=== PATIENT | male | born 1980 | race Caucasian/White ===

== ENCOUNTER 2018-02-19 12:29 | Emergency (ER) | payer OTHER, SELFPAY ==
[2018-02-19 12:33] VITALS: BP 130/82; PULSE 60; RESP 15; O2SAT 96; BMI 22.8
--- NOTE | 2018-02-19 13:43 | ED_ITS ---
HPI - Recheck/Abnormal Lab/Rx <JANNET Bynum - Last Filed: 02/19/18 21:01> General Chief Complaint: Recheck/Abnormal Lab/Rx Stated Complaint: need inhaler for asthma Time Seen by Provider: 02/19/18 13:42 Source: patient Mode of arrival: ambulatory Limitations: no limitations History of Present Illness HPI narrative: 37-year-old male with history of asthma and is an everyday smoker here for refill of his albuterol inhaler. He states he recently moved to the area has not established primary care as of yet and has ran out of his albuterol inhaler. He denies any shortness of breath. No chest pain. He states that he ran out a few days ago. He is currently establishing primary care but state will not have an appointment until March. He denies any other current concerns or complaints at this timeframe. Related Data Previous Rx's Medication Instructions Recorded albuterol sulfate 2 puff INHALATION Q4-6H PRN #8 gram 02/19/18 Allergies Allergy/AdvReac Type Severity Reaction Status Date / Time No Known Drug Allergies Allergy Verified 02/19/18 12:32 Review of Systems <JANNET Bynum - Last Filed: 02/19/18 21:01> Review of Systems Here for medication refill Eyes Denies change in vision, Denies eye discharge, Denies irritation and Denies loss of vision ENT Ears, Nose, Mouth, and Throat: Denies change in voice, Denies neck pain and Denies sore throat Cardiovascular Denies chest pain, Denies irregular heart rhythm, Denies lightheadedness, Denies palpitations, Denies dyspnea, Denies dyspnea on exertion and Denies orthopnea Respiratory Denies cough, Denies dyspnea, Denies dyspnea on exertion and Denies wheezing Gastrointestinal Gastrointestinal: Denies abdominal pain, Denies change in bowel habits, Denies diarrhea, Denies nausea and Denies vomiting Genitourinary Denies hematuria, Denies flank pain, Denies urinary incontinence and Denies urinary urgency Musculoskeletal Denies neck pain Integumentary/Breasts Denies pruritus, Denies erythema, Denies rash and Denies wounds Neurologic Denies confusion and Denies loss of vision Psychiatric Denies anxiety, Denies confusion, Denies depression, Denies homicidal ideation and Denies suicidal ideation Endocrine Denies palpitations Allergic/Immunologic Denies wheezing Exam <JANNET Bynum - Last Filed: 02/19/18 21:01> Initial Vital Signs Initial Vital Signs: Vital Signs Pulse Rate 60 02/19/18 12:33 Respiratory Rate 15 02/19/18 12:33 Blood Pressure 130/82 02/19/18 12:33 Pulse Oximetry 96 02/19/18 12:33 Const General: cooperative and well developed Nutritional Appearance: well nourished Orientation: alert, awake, oriented x3 and not confused [facility] Mouth: oral mucosae normal and mucous membranes abnormal Eyes Conjunctivae: conjunctivae normal Sclera: sclerae normal Pupils: PERRL EOM: EOM intact bilaterally Resp Effort & Inspection: normal respiratory effort, able to speak in complete sentences, no respiratory distress and no use of accessory muscles Auscultation: no rales, no rhonchi and wheezes expiratory wheezes and right lower Cardio Rate: regular rate Rhythm: regular rhythm Heart Sounds: no click, no gallops, no murmurs and no rubs Pulses: normal peripheral pulses Skin General: no rashes or lesions noted, No jaundice and No petechiae Neuro General: alert, oriented x3, gait normal and no focal motor deficits Speech: speech normal <Lucille Torres DO - Last Filed: 02/20/18 19:23> Initial Vital Signs Initial Vital Signs: Vital Signs Pulse Rate 60 02/19/18 12:33 Respiratory Rate 15 02/19/18 12:33 Blood Pressure 130/82 02/19/18 12:33 Pulse Oximetry 96 02/19/18 12:33 Course <JANNET Bynum - Last Filed: 02/19/18 21:01> Orders Ordered: Discontinued Medications Albuterol (Proventil 0.5% Neb Solution) 10 mg 0.15 mg/kg (10 mg) INH NOW ONE Stop: 02/19/18 13:38 Last Admin: 02/19/18 13:55 Dose: Albuterol (Ventolin) 2.5 mg INH NOW ONE Stop: 02/19/18 13:55 Last Admin: 02/19/18 13:58 Dose: 2.5 mg Albuterol (Ventolin) 2.5 mg INH NOW ONE Stop: 02/19/18 13:57 Last Admin: 02/19/18 13:57 Dose: Vital Signs - 8 hr 02/19/18 13:58 02/19/18 14:12 Pulse Rate 61 56 L Respiratory Rate 18 Blood Pressure 129/81 Pulse Oximetry 98 99 <Lucille Torres DO - Last Filed: 02/20/18 19:23> Orders Ordered: Discontinued Medications Albuterol (Proventil 0.5% Neb Solution) 10 mg 0.15 mg/kg (10 mg) INH NOW ONE Stop: 02/19/18 13:38 Last Admin: 02/19/18 13:55 Dose: Albuterol (Ventolin) 2.5 mg INH NOW ONE Stop: 02/19/18 13:55 Last Admin: 02/19/18 13:58 Dose: 2.5 mg Albuterol (Ventolin) 2.5 mg INH NOW ONE Stop: 02/19/18 13:57 Last Admin: 02/19/18 13:57 Dose: Vital Signs - 8 hr 02/19/18 13:58 02/19/18 14:12 Pulse Rate 61 56 L Respiratory Rate 18 Blood Pressure 129/81 Pulse Oximetry 98 99 MDM - Recheck/Abnormal Lab/Rx <JANNET Bynum - Last Filed: 02/19/18 21:01> [facility] Narrative Medical decision making narrative: Patient was slight expiratory wheezes to the right lower field. He was given albuterol nebulizer treatment in the emergency room which helped him feel better. He is prescribed albuterol inhaler with a couple of refills to get him by until he follows up with his primary care provider. For any worsening symptoms return to the emergency room. Discharge Plan Departure Patient Disposition: Home Clinical Impression: Encounter for medication refill Discharge Date/Time: 02/19/18 14:14 Interventions: ED Discharge Assessment Last Done: 02/19/18 14:12 Instructions: Asthma -- Adult Activity Restrictions/Additional Instructions: Refill of albuterol this prescription is provided. Follow up with primary care provider. For any worsening symptoms return to the emergency room. Prescriptions: New albuterol sulfate 90 mcg/actuation HFA aerosol inhaler 2 puff INHALATION Q4-6H PRN (Reason: shortness of breath or wheezing) Qty: 8 RF: 2 Referrals: [facility] [Provider Group] <Lucille Torres DO - Last Filed: 02/20/18 19:23> Cosign ED Attending Cosignature Attestation: I was immediately available in the department for consultation. This documentation has been reviewed and I agree with assessment and plan. Supervised by Lucille Torres,
[2018-02-19 13:58] VITALS: PULSE 61; RESP 18; O2SAT 98
[2018-02-19] MEDS: ALBUTEROL 2.5 MG/3 ML NEB (ADULT) INH (13:58)
[2018-02-19 14:12] VITALS: BP 129/81; PULSE 56; O2SAT 99
== END 2018-02-19 14:14 | disposition home or self-care (01) ==
PROVIDERS: Emergency Provider Nurse Practitioner Family
DX: Z76.0 Encounter for issue of repeat prescription (principal)
CPT/HCPCS: 94640; 99281; 99282; J7613

== ENCOUNTER 2018-05-06 13:05 | Emergency (ER) | payer OTHER, MEDICAID, SELFPAY ==
[2018-05-06 13:23] VITALS: BP 144/98; PULSE 96; RESP 16; TEMP 36.4; O2SAT 96
--- NOTE | 2018-05-06 14:18 | ED.RECABL ---
HPI - Recheck/Abnormal Lab/Rx <Nelly Goetz PA-C - Last Filed: 05/06/18 21:39> General Chief Complaint: Recheck/Abnormal Lab/Rx Stated Complaint: fefill on inhalers Time Seen by Provider: 05/06/18 13:19 Source: patient Mode of arrival: ambulatory Limitations: no limitations History of Present Illness HPI narrative: this 38-year-old male comes to ED requesting refill on inhaler for chronic asthma. He states that he uses this every day and it is effective for him. He denies any acute illness at all, just has not been able to see new PCP due to problems with his insurance and does not want to run out. He states that he used to be on steroid inhaler sometime ago as well, does not remember how often he needed his albuterol when on that. Related Data Previous Rx's Medication Instructions Recorded albuterol sulfate 2 puff INHALATION Q4-6H PRN #8 gram 02/19/18 albuterol sulfate 2 puff INHALATION Q4-6H PRN #8.5 05/06/18 gram fluticasone [Flovent HFA] 3 inhalation INHALATION Q12H #12 05/06/18 gram Allergies Allergy/AdvReac Type Severity Reaction Status Date / Time No Known Drug Allergies Allergy Verified 02/19/18 12:32 Review of Systems <Nelly Goetz PA-C - Last Filed: 05/06/18 21:39> Review of Systems ROS Unobtainable: All systems reviewed & are unremarkable except as noted in HPI and below PFSH <Nelly Goetz PA-C - Last Filed: 05/06/18 21:39> Social History Smoking Status: Current every day smoker Exam <Nelly Goetz PA-C - Last Filed: 05/06/18 21:39> Narrative Exam Narrative: GENERAL APPEARANCE: Patient sitting comfortably, in no distress. LUNGS: faint expiratory wheezes, no crackles, good air entry, patient speaks easily in complete sentences HEART: Rate and rhythm regular without murmur, normal S1 and S2, no S3 or S4. Initial Vital Signs Initial Vital Signs: Vital Signs Temperature 97.5 F L 05/06/18 13:23 Pulse Rate 96 H 05/06/18 13:23 Respiratory Rate 16 05/06/18 13:23 Blood Pressure 144/98 H 05/06/18 13:23 Pulse Oximetry 96 05/06/18 13:23 <Tima Saldana DO - Last Filed: 05/07/18 07:03> Initial Vital Signs Initial Vital Signs: Vital Signs Temperature 97.5 F L 05/06/18 13:23 Pulse Rate 96 H 05/06/18 13:23 Respiratory Rate 16 05/06/18 13:23 Blood Pressure 144/98 H 05/06/18 13:23 Pulse Oximetry 96 05/06/18 13:23 Course <Nelly Goetz PA-C - Last Filed: 05/06/18 21:39> Vital Signs - 8 hr 05/06/18 13:23 Temperature 97.5 F L Pulse Rate 96 H Respiratory Rate 16 Blood Pressure 144/98 H Pulse Oximetry 96 <Tima Saldana DO - Last Filed: 05/07/18 07:03> Vital Signs - 8 hr 05/06/18 13:23 Temperature 97.5 F L Pulse Rate 96 H Respiratory Rate 16 Blood Pressure 144/98 H Pulse Oximetry 96 Discharge Plan Departure Patient Disposition: Home Clinical Impression: Encounter for medication refill Asthma Qualifiers: Asthma severity: moderate Asthma persistence: persistent Asthma complication type: uncomplicated Qualified Code(s): J45.40 - Moderate persistent asthma, uncomplicated Discharge Date/Time: 05/06/18 14:32 Interventions: ED Discharge Assessment Last Done: 05/06/18 14:32 Instructions: DI for Asthma -- Adult Activity Restrictions/Additional Instructions: Return as we talked about if you have acutely worsening symptoms. Otherwise, please get scheduled with your new PCP so that you will be able to see how the steroid inhaler is working for you again. Use that every day no matter what, and then continue to use her albuterol as needed. Use these with the spacer like the respiratory therapist talked you he Prescriptions: New albuterol sulfate 90 mcg/actuation HFA aerosol inhaler 2 puff INHALATION Q4-6H PRN (Reason: asthma) Qty: 8.5 RF: 0 Flovent HFA 110 mcg/actuation HFA aerosol inhaler 3 inhalation INHALATION Q12H Qty: 12 RF: 0 No Action albuterol sulfate 90 mcg/actuation HFA aerosol inhaler 2 puff INHALATION Q4-6H PRN (Reason: shortness of breath or wheezing) Qty: 8 RF: 2 <Tima Saldana DO - Last Filed: 05/07/18 07:03> Cosign ED Attending Yen Attestation: I was available for consultation during this patient's emergency department encounter
== END 2018-05-06 14:32 | disposition home or self-care (01) ==
PROVIDERS: Emergency Provider Internal Medicine
DX: Z76.0 Encounter for issue of repeat prescription (principal)
CPT/HCPCS: 99281; 99282

== ENCOUNTER 2019-03-18 15:54 | Emergency (ER) | payer OTHER, MEDICAID, SELFPAY ==
[2019-03-18 15:56] VITALS: BP 129/79; PULSE 96; RESP 16; TEMP 36.9; O2SAT 98; BMI 24.3
--- NOTE | 2019-03-18 18:47 | PC.NURSE ---
pt with abscess to upper right gumline
[2019-03-18 18:55] VITALS: BP 107/78; PULSE 52; RESP 14; O2SAT 98
--- NOTE | 2019-03-18 19:28 | ED_ITS ---
HPI - Dental/Oral General Chief complaint: Dental/Oral Stated complaint: states infection of his mouth and jaw pain Time Seen by Provider: 03/18/19 18:23 Source: patient Mode of arrival: Ambulatory Limitations: no limitations History of Present Illness HPI Narrative: 38M former smoker with extensive dental history presents with the chief complaint of a painful, swollen mass above tooth 6. Which spontaneously started draining foul-smelling, purulence earlier in the day. He denies any facial swelling, redness or warmth. He denies any trouble swallowing or breathing. He denies any fever, shaking chills nor nausea, vomiting or diarrhea. He denies any recent trauma MD Complaint: tooth pain Teeth map: 1. Onset (ago): day(s) Duration: constant Severity: moderate Relieving factors: nothing Exacerbating factors: chewing Context: history of dental caries and poor dental care Associated symptoms: gum swelling Treatment prior to arrival: none Related Data Home Medications Medication Instructions Recorded Confirmed buprenorphine-naloxone [Suboxone] film 03/18/19 lisinopril-hydrochlorothiazide 1 tab PO DAILY 03/18/19 03/18/19 omeprazole 20 mg PO DAILY 03/18/19 03/18/19 ondansetron 4 mg PO Q6-8H PRN 03/18/19 03/18/19 Previous Rx's Medication Instructions Recorded albuterol sulfate 2 puff INHALATION Q4-6H PRN #8 gram 02/19/18 fluticasone propionate [Flovent 3 inhalation INHALATION Q12H #12 05/06/18 HFA] gram amoxicillin-pot clavulanate 1 tab PO BID #20 tab 03/18/19 [Augmentin] Allergies Allergy/AdvReac Type Severity Reaction Status Date / Time No Known Drug Allergies Allergy Verified 03/18/19 16:01 Review of Systems Constitutional Constitutional: Denies chills, Denies fatigue, Denies fever(s), Denies frequent falls, Denies lethargy and Denies weakness Eyes Eyes: Denies change in vision, Denies eye discharge, Denies irritation and Denies loss of vision ENT Ears, Nose, Mouth, and Throat: Denies change in voice, Reports dental pain, Denies dizziness, Reports facial pain, Denies neck pain, Denies sore throat and Denies throat swelling Cardiovascular Cardiovascular: Denies chest pain, Denies irregular heart rhythm, Denies lightheadedness, Denies palpitations, Denies dyspnea, Denies dyspnea on exertion and Denies orthopnea Respiratory Respiratory: Denies cough, Denies dyspnea, Denies dyspnea on exertion and Denies wheezing Gastrointestinal Gastrointestinal: Denies abdominal pain, Denies change in bowel habits, Denies diarrhea, Denies nausea and Denies vomiting Genitourinary Genitourinary: Denies hematuria, Denies flank pain, Denies urinary incontinence and Denies urinary urgency Musculoskeletal Musculoskeletal: Denies back pain, Denies muscle weakness, Denies neck pain, Den ies numbness and Denies tingling Integumentary/Breasts Skin/Breast: Denies pruritus, Denies erythema, Denies rash and Denies wounds Neurologic Neurologic: Denies behavioral changes, Denies confusion, Denies dizziness, Denies frequent falls, Denies loss of vision, Denies numbness, Denies tingling and Denies weakness Psychiatric Psychiatric: Denies anxiety, Denies behavioral changes, Denies confusion, Denies depression, Denies homicidal ideation and Denies suicidal ideation Endocrine Endocrine: Denies fatigue, Denies flushing and Denies palpitations Hematologic/Lymphatic Hematologic/Lymphatic: Denies easy bruising Allergic/Immunologic Allergic/Immunologic: Denies urticaria, Denies throat swelling and Denies wheezing Patient History Social History Smoking Status: Former smoker Smoking Status: Former smoker alcohol intake frequency: 0-2 drinks per day Substance Use Type: marijuana Exam Narrative Exam Narrative: GEN: AOx3 and in mild distress, resting comfortably EYES: Pupils are equal, round, and reactive to light and accommodation. Extraoccular muscles are intact bilaterally. There is no subconjunctival hemorrhage or exudate. ORAL: no facial swelling, redness, warmth, induration or fluctuance. Intraoral exam notes a spontaneously draining dental abscess at gumline above tooth #6. No need for further incision, no ongoing fluctuance or induration CHEST: Lungs are clear to auscultation bilaterally and free of wheezes, rales, or rhonchi. Heart rate is regular rhythm, there are no murmurs, clicks, rubs, or gallops. There is no chest wall tenderness. ABD: Abdomen is soft and nontender. There is no guarding or rebound. Bowel sounds are normal in all 4 quadrants. There is no mass or organomegaly. EXT: Full painless ROM of all extremities with no loss of sensation or strength. SKIN: Warm, pink, and dry. No erythema or rash Initial Vital Signs Initial Vital Signs: Vital Signs Temperature 98.5 F 03/18/19 15:56 Pulse Rate 96 H 03/18/19 15:56 Respiratory Rate 16 03/18/19 15:56 Blood Pressure 129/79 03/18/19 15:56 Pulse Oximetry 98 03/18/19 15:56 Course Vital Signs Vital signs: Vital Signs - 8 hr 03/18/19 18:55 Pulse Rate 52 L Respiratory Rate 14 Blood Pressure [Left Arm] 107/78 Pulse Oximetry 98 Discharge Plan Departure Patient Disposition: Home Clinical Impression: Dental caries, Dental abscess Discharge Date/Time: 03/18/19 19:42 Instructions: Tooth Abscess Activity Restrictions/Additional Instructions: *You have been diagnosed with [dental abscess] *What to do: *Take medications as directed: [facility] at your request *Follow up with your primary care provider in 2-3 days, call for an appointment. Let them know you were seen in the Emergency Department and that we ask that you be seen in follow up *Return to ER if you should have any new, worsening or concerning symptoms Prescriptions: New amoxicillin-pot clavulanate [Augmentin] 875-125 mg tablet 1 tab PO BID Qty: 20 RF: 0 No Action Flovent HFA 110 mcg/actuation HFA aerosol inhaler 3 inhalation INHALATION Q12H Qty: 12 RF: 0 omeprazole 20 mg capsule,delayed release(DR/EC) 20 mg PO DAILY RF: 0 lisinopril-hydrochlorothiazide 20-25 mg tablet 1 tab PO DAILY RF: 0 ondansetron 4 mg tablet,disintegrating 4 mg PO Q6-8H PRN (Reason: Nausea And Vomiting) RF: 0 buprenorphine-naloxone [Suboxone] 8-2 mg film RF: 0 albuterol sulfate 90 mcg/actuation HFA aerosol inhaler 2 puff INHALATION Q4-6H PRN (Reason: shortness of breath or wheezing) Qty: 8 RF: 2 Referrals: [facility] [Outside] Brendan Callaway DMD [Physician] -
== END 2019-03-18 19:42 | disposition home or self-care (01) ==
PROVIDERS: Emergency Provider Emergency Medicine
DX: K02.9 Dental caries, unspecified (principal); K04.7 Periapical abscess without sinus
CPT/HCPCS: 99281; 99283

== ENCOUNTER 2019-08-06 16:53 | Emergency (ER) | payer OTHER, MEDICAID, SELFPAY ==
[2019-08-06 17:04] VITALS: BP 133/68; PULSE 107; RESP 18; TEMP 36.2; O2SAT 96; BMI 27.3
--- NOTE | 2019-08-06 19:36 | DI.US.S_ITS ---
PROCEDURE: US ABDOMEN LIMITED INDICATIONS: RUQ PAIN TECHNIQUE: Real-time scanning was performed of the abdominal and retroperitoneal organs, with image documentation. COMPARISON: None. FINDINGS: Liver: Liver is normal in size and homogeneous in echotexture. Gallbladder: Nondilated. No stones or sludge. Normal gallbladder wall thickness. No pericholecystic fluid. Patient is tender over the right upper quadrant. Biliary ducts: Intrahepatic bile ducts are non-dilated. No extrahepatic ductal dilatation seen. CBD is not well-seen. CHD measures 3 mm. Normal is 6-7 mm or less in diameter, or 10 mm or less post-cholecystectomy. Pancreas: Visualized portions of the pancreas are sonographically normal. The tail was not well-seen. IMPRESSION: 1. Patient is tender over the right upper quadrant. However, gallbladder is nondistended, no gallstones, and no pericholecystic fluid. 2. CBD is not well seen. No intrahepatic ductal dilatation. Dictated by: Bruce Alvares M.D. on 08/06/2019 at 20:33 Approved by: Bruce Alvares M.D. on 08/06/2019 at 20:35
--- NOTE | 2019-08-06 20:09 | ED.ABDPAIN ---
HPI - Abdominal Pain <ALLAN Stone - Last Filed: 08/06/19 21:16> General Chief Complaint: Abdominal Pain Stated Complaint: sharp pain right side abdomen,says B12 Deficiency Time Seen by Provider: 08/06/19 19:30 Source: patient Mode of arrival: Wheelchair Limitations: no limitations History of Present Illness HPI narrative: The patient is a 39-year-old male former smoker with history of hand surgery and history of drug use who presents with a chief complaint of right upper quadrant pain. He states has been going on for the past several days. He states that he gets worse after he eats, radiates around to his right flank. He complains with nausea, no vomiting. Denies any diarrhea states his last bowel movement was 2 days ago normal. He states he also has a significant B12 deficiency and sees his primary care provider, Dr. Naqvi for this. He states his B12 deficiency has led to weakness, and that this is normal for him at this time. Denies any history of abdominal surgeries and states he has been off Suboxone for several months. Denies any dysuria urgency or frequency. Denies any fevers. Denies any muscle aches or chills. Related Data Home Medications Medication Instructions Recorded Confirmed lisinopril-hydrochlorothiazide 1 tab PO DAILY 03/18/19 08/06/19 omeprazole 20 mg PO DAILY 03/18/19 08/06/19 ondansetron 4 mg PO Q6-8H PRN 03/18/19 08/06/19 cyanocobalamin (vitamin B-12) 1,000 mcg PO DAILY 08/06/19 08/06/19 Previous Rx's Medication Instructions Recorded albuterol sulfate 2 puff INHALATION Q4-6H PRN #8 gram 02/19/18 fluticasone propionate [Flovent 3 inhalation INHALATION Q12H #12 05/06/18 HFA] gram hydrocodone-acetaminophen [[place]] 1 tab PO Q4-6H PRN #7 tab 08/06/19 ondansetron 4 mg PO Q6H PRN #14 tab 08/06/19 Allergies Allergy/AdvReac Type Severity Reaction Status Date / Time No Known Drug Allergies Allergy Verified 08/06/19 17:04 Review of Systems <ALLAN Stone - Last Filed: 08/06/19 21:16> Review of Systems Narrative: GENERAL: Denies chills, fatigue, malaise, fever, sweats. HEENT: Denies sinus pain, ear pain, sore throat, difficulty swallowing, dizziness. RESPIRATORY: Denies dyspnea, cough, wheezing, hemoptysis, sputum. CARDIOVASCULAR: Denies chest pain, palpitations, orthopnea, edema, GASTROINTESTINAL: See HPI : Denies dysuria, frequency, incontinence, hematuria, urinary retention. MUSCULOSKELETAL: denies weakness, joint pain, or bony pain SKIN: Denies rash, skin lesions, or other NEUROLOGIC: Denies weakness, headache, numbness, change in speech, confusion, seizures, incoordination. PSYCHIATRIC: No concerning psychosocial issues. 12 point review of systems is negative except for those stated above Patient History <ALLAN Stone - Last Filed: 08/06/19 21:16> Social History Smoking Status: Former smoker Smoking Status: Former smoker alcohol intake frequency: 0-2 drinks per day Substance Use Type: does not use Exam <ALLAN Stone - Last Filed: 08/06/19 21:16> Narrative Exam Narrative: GENERAL: This is a well-nourished, well-developed patient, in no acute distress HEAD: Atraumatic. Normocephalic. No temporal or scalp tenderness. EYES: Pupils equal round and reactive. Extraocular motions intact. No scleral icterus. No injection or drainage. ENT: Nose without bleeding, purulent drainage or septal hematoma. Throat without erythema, tonsillar hypertrophy or exudate. Uvula midline. Airway patent. NECK: Trachea midline. No JVD or lymphadenopathy. Supple, nontender, no meningeal signs. CARDIOVASCULAR: Regular rate and rhythm RESPIRATORY: Clear to auscultation. Breath sounds equal bilaterally. No wheezes, rales, or rhonchi. No cough. No increased respiratory effort. No accessory muscle use. GASTROINTESTINAL: Abdomen soft, tenderness right upper quadrant palpation with positive Dumont sign, nondistended. No hepato-splenomegaly, or palpable masses. Active bowel sounds all 4 quadrants EXTREMITIES: No clubbing, cyanosis, or edema. No joint tenderness, effusion, or edema noted. BACK: Nontender without deformity or crepitance. No flank tenderness. NEURO: AOx3. Interactive. Age appropriate. SKIN: No rash or erythema on visible skin Initial Vital Signs Initial Vital Signs: Vital Signs Temperature 97.1 F L 08/06/19 17:04 Pulse Rate 107 H 08/06/19 17:04 Respiratory Rate 18 08/06/19 17:04 Blood Pressure 133/68 08/06/19 17:04 Pulse Oximetry 96 08/06/19 17:04 <Jorje Harper DO - Last Filed: 08/06/19 23:04> Initial Vital Signs Initial Vital Signs: Vital Signs Temperature 97.1 F L 08/06/19 17:04 Pulse Rate 107 H 08/06/19 17:04 Respiratory Rate 18 08/06/19 17:04 Blood Pressure 133/68 08/06/19 17:04 Pulse Oximetry 96 08/06/19 17:04 Scores <ALLAN Stone - Last Filed: 08/06/19 21:16> GCS [place] coma scale eye opening: Spontaneous [place] coma scale verbal response: Orientated [place] coma scale motor response: Obey commands [place] coma scale total score: 15 Course <ALLAN Stone - Last Filed: 08/06/19 21:16> Orders Ordered: ED Orders 08/06/19 19:36 US abdomen limited Stat 08/06/19 20:10 Amylase Stat Complete Blood Count AUTO DIFF Stat Comprehensive Metabolic Panel Stat Lipase Stat Discontinued Medications Hydrocodone Bitart/Acetaminophen (Vicodin 5/325 Prepack) 1 bottle MISC SEEINSTR ONE Stop: 08/06/19 20:50 Last Admin: 08/06/19 21:15 Dose: 1 bottle Documented by: KEVIN Sodium Chloride (Normal Saline 0.9%) 1,000 mls @ 1,000 mls/hr IV BOLUS ONE Stop: 08/06/19 20:35 Last Infusion: 08/06/19 21:20 Dose: 0 mls/hr Documented by: Admin: 08/06/19 20:18 Dose: 1,000 mls/hr Documented by: DAVON Morphine Sulfate (Morphine) 4 mg IV NOW ONE Stop: 08/06/19 19:43 Last Admin: 08/06/19 20:16 Dose: 4 mg Documented by: DAVON Ondansetron HCl (Zofran) 4 mg IV NOW ONE Stop: 08/06/19 19:37 Last Admin: 08/06/19 20:16 Dose: 4 mg Documented by: DAVON Ondansetron HCl (Zofran Odt Prepack) 1 bottle MISC SEEINSTR ONE Stop: 08/06/19 20:50 Last Admin: 08/06/19 21:15 Dose: 1 bottle Documented by: KEVIN Vital Signs Vital signs: Vital Signs - 8 hr 08/06/19 17:04 08/06/19 20:23 08/06/19 21:30 Temperature 97.1 F L Pulse Rate 107 H 103 H 98 H Respiratory Rate 18 16 16 Blood Pressure 133/68 111/64 Blood Pressure [Left Wrist] 116/72 Pulse Oximetry 96 92 97 <Jorje Harper, - Last Filed: 08/06/19 23:04> Orders Ordered: ED Orders 08/06/19 19:36 US abdomen limited Stat 08/06/19 20:10 Amylase Stat Complete Blood Count AUTO DIFF Stat Comprehensive Metabolic Panel Stat Lipase Stat Discontinued Medications Hydrocodone Bitart/Acetaminophen (Vicodin 5/325 Prepack) 1 bottle MISC SEEINSTR ONE Stop: 08/06/19 20:50 Last Admin: 08/06/19 21:15 Dose: 1 bottle Documented by: KEVIN Sodium Chloride (Normal Saline 0.9%) 1,000 mls @ 1,000 mls/hr IV BOLUS ONE Stop: 08/06/19 20:35 Last Infusion: 08/06/19 21:20 Dose: 0 mls/hr Documented by: Admin: 08/06/19 20:18 Dose: 1,000 mls/hr Documented by: DAVON Morphine Sulfate (Morphine) 4 mg IV NOW ONE Stop: 08/06/19 19:43 Last Admin: 08/06/19 20:16 Dose: 4 mg Documented by: DAVON Ondansetron HCl (Zofran) 4 mg IV NOW ONE Stop: 08/06/19 19:37 Last Admin: 08/06/19 20:16 Dose: 4 mg Documented by: DAVON Ondansetron HCl (Zofran Odt Prepack) 1 bottle MISC SEEINSTR ONE Stop: 08/06/19 20:50 Last Admin: 08/06/19 21:15 Dose: 1 bottle Documented by: KEVIN Vital Signs Vital signs: Vital Signs - 8 hr 08/06/19 17:04 08/06/19 20:23 08/06/19 21:30 Temperature 97.1 F L Pulse Rate 107 H 103 H 98 H Respiratory Rate 18 16 16 Blood Pressure 133/68 111/64 Blood Pressure [Left Wrist] 116/72 Pulse Oximetry 96 92 97 MDM - Abdominal Pain <Lucille Pulliam, BAG SORTER- - Last Filed: 08/06/19 21:16> Lab Data Result diagrams: 08/06/19 20:10 08/06/19 20:10 Labs: Lab Results 08/06/19 08/06/19 08/06/19 Range/Units 20:10 20:10 20:10 WBC 9.3 (4.5-11.0) X10^3/uL RBC 4.58 (4.5-5.9) X10^6/uL Hgb 16.8 (13.5-17.5) g/dL Hct 46.8 (41-53) % MCV 102.2 H (80-100) fL MCH 36.6 H (26-34) PG MCHC 35.9 (30-36) % RDW 14.2 (11.6-14.8) % Plt Count 267 (150-400) X10^3/uL Neut % (Auto) 70.8 (50-75) % Lymph % (Auto) 14.1 L (25-40) % Ritchie % (Auto) 11.2 (3-14) % Eos % (Auto) 3.4 (2-4) % Baso % (Auto) 0.5 (0-2) % Neut # (Auto) 6600 (1116-9659) /uL Lymph # (Auto) 1300 (1199-4336) /uL Ritchie # (Auto) 1000 H (0-900) /uL Eos # (Auto) 300 (0-450) /uL Baso # (Auto) 0 (0-100) /uL Sodium 134 L (137-145) mmol/L Potassium 3.7 (3.4-5.1) mmol/L Chloride 93 L (98-107) mmol/L Carbon Dioxide 29 (22-32) mmol/L BUN 15 (9-20) mg/dL Creatinine 0.89 (0.66-1.25) mg/dL Estimated GFR > 60.0 (>60) mL/min BUN/Creatinine Ratio 16.9 (6-22) Glucose 117 H (70-100) mg/dL Calcium 9.8 (8.4-10.2) mg/dL Total Bilirubin 1.3 (0.2-1.3) mg/dL AST 94 H (17-59) IU/L ALT 55 H (<50) IU/L Alkaline Phosphatase 164 H (38-126) U/L Total Protein 7.9 (6.3-8.2) g/dL Albumin 4.5 (3.5-5.0) g/dL Globulin 3.4 (1.7-4.1) g/dL Albumin/Globulin Ratio 1.3 (1.0-2.8) Amylase 55 (30-110) U/L Lipase 11 L (23-300) U/L Point of care testing: Urine Dip Bedside Urine Glucose Negative Bedside Urine Bilirubin - Negative Bedside Urine Ketone - Negative Urine Specific [place] 1.010 Bedside Urine Occult Blood - Negative Bedside Urine pH 5.5 Bedside Urine Protein - Negative Bedside Urine Urobilinogen - Negative Bedside Urine Nitrite - Negative Bedside Urine Leukocytes - Negative Esterase Imaging Data US - abdomen: Radiologist's Impression: [address] [place] [id number] Ultrasound Report Signed Patient: Anand Fulton#: [id number] : 1980Acct:[id number] Age/Sex: 39 / MDate of Service: 08/06/19 Loc: ED Accession Number: [id number] Procedure: US abdomen limited Ordering Provider: Lucille Pulliam [facility] PROCEDURE: US ABDOMEN LIMITED INDICATIONS: RUQ PAIN TECHNIQUE: Real-time scanning was performed of the abdominal and retroperitoneal organs, with image documentation. COMPARISON: None. FINDINGS: Liver: Liver is normal in size and homogeneous in echotexture. Gallbladder: Nondilated. No stones or sludge. Normal gallbladder wall thickness. No pericholecystic fluid. Patient is tender over the right upper quadrant. Biliary ducts: Intrahepatic bile ducts are non-dilated. No extrahepatic ductal dilatation seen. CBD is not well-seen. CHD measures 3 mm. Normal is 6-7 mm or less in diameter, or 10 mm or less post-cholecystectomy. Pancreas: Visualized portions of the pancreas are sonographically normal. The tail was not well-seen. IMPRESSION: 1. Patient is tender over the right upper quadrant. However, gallbladder is nondistended, no gallstones, and no pericholecystic fluid. 2. CBD is not well seen. No intrahepatic ductal dilatation. Dictated by: Bruce Alvares M.D. on 08/06/2019 at 20:33 Approved by: Bruce Alvares M.D. on 08/06/2019 at 20:35 MDM Narrative Medical decision making narrative: The patient is a 39-year-old male who presents with a chief complaint of right upper quadrant pain after eating. Lab work is reassuring, no elevated lipase, no leukocytosis. He is afebrile throughout stay in the emergency department which is also reassuring. His LFTs are just slightly above normal, normal bilirubin. Ultrasound shows no evidence of cholecystitis, as the gallbladder is nondistended, no gallstones, no pericholecystic cholecystic fluid. The patient has been tolerating p.o. fluid throughout his stay in the emergency department. I did discuss that his LFTs are slightly above normal, he states the rash improved from previous and that it is related to his several beers a day. I discussed at length eating a low-fat diet, decreasing his alcohol intake etcetera. Encouraged follow-up with primary care provider in the next few days. Patient and cough and have no questions or concerns upon discharge and states understanding return precautions as well as follow-up care. <Jorje Harper DO - Last Filed: 08/06/19 23:04> Lab Data Labs: Lab Results 08/06/19 08/06/19 08/06/19 Range/Units 20:10 20:10 20:10 WBC 9.3 (4.5-11.0) X10^3/uL RBC 4.58 (4.5-5.9) X10^6/uL Hgb 16.8 (13.5-17.5) g/dL Hct 46.8 (41-53) % MCV 102.2 H (80-100) fL MCH 36.6 H (26-34) PG MCHC 35.9 (30-36) % RDW 14.2 (11.6-14.8) % Plt Count 267 (150-400) X10^3/uL Neut % (Auto) 70.8 (50-75) % Lymph % (Auto) 14.1 L (25-40) % Ritchie % (Auto) 11.2 (3-14) % Eos % (Auto) 3.4 (2-4) % Baso % (Auto) 0.5 (0-2) % Neut # (Auto) 6600 (3865-2086) /uL Lymph # (Auto) 1300 (3771-7398) /uL Ritchie # (Auto) 1000 H (0-900) /uL Eos # (Auto) 300 (0-450) /uL Baso # (Auto) 0 (0-100) /uL Sodium 134 L (137-145) mmol/L Potassium 3.7 (3.4-5.1) mmol/L Chloride 93 L (98-107) mmol/L Carbon Dioxide 29 (22-32) mmol/L BUN 15 (9-20) mg/dL Creatinine 0.89 (0.66-1.25) mg/dL Estimated GFR > 60.0 (>60) mL/min BUN/Creatinine Ratio 16.9 (6-22) Glucose 117 H (70-100) mg/dL Calcium 9.8 (8.4-10.2) mg/dL Total Bilirubin 1.3 (0.2-1.3) mg/dL AST 94 H (17-59) IU/L ALT 55 H (<50) IU/L Alkaline Phosphatase 164 H (38-126) U/L Total Protein 7.9 (6.3-8.2) g/dL Albumin 4.5 (3.5-5.0) g/dL Globulin 3.4 (1.7-4.1) g/dL Albumin/Globulin Ratio 1.3 (1.0-2.8) Amylase 55 (30-110) U/L Lipase 11 L (23-300) U/L Point of care testing: Urine Dip Bedside Urine Glucose Negative Bedside Urine Bilirubin - Negative Bedside Urine Ketone - Negative Urine Specific [place] 1.010 Bedside Urine Occult Blood - Negative Bedside Urine pH 5.5 Bedside Urine Protein - Negative Bedside Urine Urobilinogen - Negative Bedside Urine Nitrite - Negative Bedside Urine Leukocytes - Negative Esterase Discharge Plan Departure Patient Disposition: Home Clinical Impression: Biliary colic Abdominal pain Qualifiers: Abdominal location: right upper quadrant Qualified Code(s): R10.11 - Right upper quadrant pain Discharge Date/Time: 08/06/19 21:20 Instructions: DI for Abdominal Pain-Adult, DI for Biliary Colic Activity Restrictions/Additional Instructions: Thank you for trusting us with your care today. As discussed your lab work and imaging as well as urinalysis came back reassuring. Your pain is consistent with biliary colic. I have given you discharge instructions regarding this. As I discussed, please avoid alcohol, monitor your diet and follow up with primary care provider in the next few days. I sent 2 prescriptions to [facility] to fill tomorrow. We have also given you take-home packs for the night. As discussed, please follow-up with primary care provider next few days. Please come back to the emergency department for any acute concerns such as inability keep down fluids, fever with abdominal pain etcetera Prescriptions: New ondansetron 4 mg tablet,disintegrating 4 mg PO Q6H PRN (Reason: nausea and vomiting) Qty: 14 RF: 0 hydrocodone-acetaminophen [[place]] 5-325 mg tablet 1 tab PO Q4-6H PRN (Reason: pain) Qty: 7 RF: 0 No Action Flovent HFA 110 mcg/actuation HFA aerosol inhaler 3 inhalation INHALATION Q12H Qty: 12 RF: 0 omeprazole 20 mg capsule,delayed release(DR/EC) 20 mg PO DAILY RF: 0 lisinopril-hydrochlorothiazide 20-25 mg tablet 1 tab PO DAILY RF: 0 ondansetron 4 mg tablet,disintegrating 4 mg PO Q6-8H PRN (Reason: Nausea And Vomiting) RF: 0 albuterol sulfate 90 mcg/actuation HFA aerosol inhaler 2 puff INHALATION Q4-6H PRN (Reason: shortness of breath or wheezing) Qty: 8 RF: 2 cyanocobalamin (vitamin B-12) 1,000 mcg tablet extended release 1,000 mcg PO DAILY RF: 0 Referrals: Charan Naqvi MD [Non-Staff] - <Jorje Harper DO - Last Filed: 08/06/19 23:04> [facility] ED Attending Brandonature Attestation: I was immediately available in the department for consultation. This documentation has been reviewed and I agree with assessment and plan. Supervised by Jorje Harper DO
[2019-08-06 20:16] LABS: Add Manual Diff / Slide Review NO; Basophils Absolute Auto 0 /uL (0-100); Basophils Percent Auto 0.5 % (0-2); Eosinophils Absolute Auto 300 /uL (0-450); Eosinophils Percent Auto 3.4 % (2-4); Hematocrit 46.8 % (41-53); Hemoglobin 16.8 g/dL (13.5-17.5); Lymphocytes Absolute Auto 1300 /uL (1100-4500); Lymphocytes Percent Auto 14.1 % (25-40); Mean Corpuscular HGB Conc 35.9 % (30-36); Mean Corpuscular Hemoglobin 36.6 PG (26-34); Mean Corpuscular Volume 102.2 fL (80-100); Monocytes Absolute Auto 1000 /uL (0-900); Monocytes Percent Auto 11.2 % (3-14); Neutrophils Absolute Auto 6600 /uL (1500-7000); Neutrophils Percent Auto 70.8 % (50-75); Platelet Count 267 X10^3/uL (150-400); Red Blood Cell Count 4.58 X10^6/uL (4.5-5.9); Red Cell Distribution Width 14.2 % (11.6-14.8); White Blood Cell Count 9.3 X10^3/uL (4.5-11.0)
[2019-08-06] MEDS: MORPHINE 4 MG/ML INJ IV (20:16)
[2019-08-06] MEDS: ONDANSETRON 4 MG/2 ML INJ IV (20:16)
[2019-08-06] MEDS: SODIUM CHLORIDE 0.9% 1,000 ML 1000 ML IV (20:18)
[2019-08-06 20:23] VITALS: BP 116/72; PULSE 103; RESP 16; O2SAT 92
[2019-08-06 20:28] LABS: Alanine Aminotransferase 55 IU/L (<50); Albumin 4.5 g/dL (3.5-5.0); Albumin Globulin Ratio 1.3 (1.0-2.8); Alkaline Phosphatase 164 U/L (38-126); Aspartate Aminotransferase 94 IU/L (17-59); BUN Creatinine Ratio 16.9 (6-22); Bilirubin Total 1.3 mg/dL (0.2-1.3); Blood Urea Nitrogen 15 mg/dL (9-20); Calcium 9.8 mg/dL (8.4-10.2); Carbon Dioxide 29 mmol/L (22-32); Chloride 93 mmol/L (98-107); Estimated Glomerular Filt Rate > 60.0 mL/min (>60); Globulin 3.4 g/dL (1.7-4.1); Glucose 117 mg/dL (70-100); HEMOLYSIS 19 (0-50); Lipase 11 U/L (23-300); Potassium 3.7 mmol/L (3.4-5.1); Sodium 134 mmol/L (137-145); Total Protein 7.9 g/dL (6.3-8.2)
[2019-08-06 20:29] LABS: Amylase 55 U/L (30-110)
[2019-08-06] MEDS: HYDROCODONE/ACET 5/325 PREPACK 1 BOTTLE MISC (21:15)
[2019-08-06] MEDS: ONDANSETRON 4 MG ODT PREPACK 1 BOTTLE MISC (21:15)
[2019-08-06 21:30] VITALS: BP 111/64; PULSE 98; RESP 16; O2SAT 97
== END 2019-08-06 21:20 | disposition home or self-care (01) ==
PROVIDERS: Emergency Provider Nurse Practitioner Family
DX: R10.11 Right upper quadrant pain (principal); R94.5 Abnormal results of liver function studies
CPT/HCPCS: 36415; 76705; 80053; 81003; 82150; 83690; 85025; 99284; J2270; J2405

== ENCOUNTER 2019-08-07 08:05 | Inpatient (IN) | payer OTHER, MEDICAID, SELFPAY ==
[2019-08-07] VITALS (12 sets, daily range): BP systolic 118–148; BP diastolic 68–89; PULSE 67–103; RESP 14–25; TEMP 36.1–38.3; O2SAT 94–100; BMI 27.3
--- NOTE | 2019-08-07 08:22 | DI.CT.S_ITS ---
PROCEDURE: CT ABDOMEN PELVIS W CON INDICATIONS: Abdominal pain/right side TECHNIQUE: After the administration of oral and intravenous contrast, 5 mm thick sections acquired from the diaphragms to the symphysis. 5 mm thick coronal and sagittal reformats were performed. For radiation dose reduction, the following was used: automated exposure control, adjustment of mA and/or kV according to patient size. COMPARISON: None. FINDINGS: Image quality: Diagnostic. ABDOMEN: Lung bases: Areas of consolidation within the bilateral lung bases are noted. Heart size is normal. Solid organs: Liver is normal in size. No definite liver lesions are evident. Small focus of fatty infiltration along falciform ligament appears to be present. Gallbladder is not enlarged or inflamed. Biliary system is non-dilated. Pancreas enhances normally. Spleen is normal in size and enhancement. No adrenal nodules. Kidneys are normal in size and enhancement, without hydronephrosis. Peritoneum and bowel: There is a small hiatal hernia. The stomach is otherwise unremarkable. The small bowel loops are nondilated. Layering high attenuation material is seen within multiple small bowel loops, which likely represents an ingested high density liquid. Mild prominence of the wall of the distal colon is present, likely exaggerated by incomplete distention. There is no free fluid, loculated fluid collection or free air. Nodes and vessels: No retroperitoneal or mesenteric lymphadenopathy is identified. However, small retroperitoneal lymph nodes are incidentally noted. Aorta and inferior vena cava are normal in caliber. Bones: No acute fracture or suspicious osseous lesion is identified. PELVIS: Genitourinary: Bladder wall thickness is normal. The prostate is not enlarged. Miscellaneous: No inguinal hernias or adenopathy. There is no free fluid or loculated fluid collection. Bones: No suspicious bony lesions. No acute pelvic fracture is evident. IMPRESSION: 1. No acute process is appreciated within the abdomen or pelvis. 2. No bowel obstruction. 3. Small hiatal hernia. Dictated by: Gurdeep Metcalf M.D. on 08/07/2019 at 8:39 Approved by: Gurdeep Metcalf M.D. on 08/07/2019 at 8:42
--- NOTE | 2019-08-07 08:22 | DI.CT.S_ITS ---
PROCEDURE: CT ANGIO CHEST PE PROTOCOL INDICATIONS: Right-sided chest pain/dyspnea TECHNIQUE: After the administration of intravenous contrast, 2 mm thick sections acquired from the pulmonary apices to the posterior costophrenic angles. 3-dimensional maximum intensity projection (MIP) coronal and sagittal reformats were then acquired through the thorax. For radiation dose reduction, the following was used: automated exposure control, adjustment of mA and/or kV according to patient size. COMPARISON: [facility], CT, CT ABDOMEN PELVIS W CON, 08/07/2019, 8:31. FINDINGS: Image quality: Limited, related to suboptimal timing of the contrast bolus, which is predominantly seen within the aorta. Pulmonary arteries: Evaluation of the pulmonary arteries for emboli is severely limited related to suboptimal timing of the contrast bolus. The majority of the contrast is identified within the aorta and systemic arterial system. However, there is suggestion of potential filling defects within the bilateral lower lobe pulmonary arteries. Lungs and pleura: There is mild consolidation within the bilateral lower lobes in the inferior margin of the right middle lobe. There is also minimal consolidation within the lingula. No effusion or pneumothorax is identified. There is no lung mass or pulmonary nodule. Mediastinum: Heart size is normal, without pericardial effusion. No mediastinal or hilar adenopathy. Thoracic aorta is normal in caliber and enhancement. Esophagus is normal in caliber. There is a small hiatal hernia. Bones and chest wall: No suspicious bony lesions. Ribs and thoracic spine appear intact throughout. Thyroid gland is not enlarged right adequately evaluated. No axillary or supraclavicular adenopathy. Abdomen: Visualized upper abdominal solid organs appear normal in the early arterial phase of enhancement. IMPRESSION: 1. Limited CT pulmonary angiogram with findings that are suspicious for multiple lower lobe pulmonary arterial emboli. A repeat study is recommended for confirmation. 2. Bibasilar consolidation may represent atelectasis versus pneumonia. Pulmonary infarcts in the setting of pulmonary emboli could also have this appearance. 3. Small hiatal hernia. Note: Findings were discussed with Dr. Lehman at 0938 hours (PST) on 08/07/19. Dictated by: Gurdeep Metcalf M.D. on 08/07/2019 at 8:31 Approved by: Gurdeep Metcalf M.D. on 08/07/2019 at 8:39
[2019-08-07] MEDS: SODIUM CHLORIDE 0.9% 1,000 ML 1000 ML IV (08:41)
[2019-08-07] MEDS: IBUPROFEN 400 MG TABLET 800 MG PO (08:41)
[2019-08-07] MEDS: ONDANSETRON 4 MG/2 ML INJ IV (08:42)
--- NOTE | 2019-08-07 09:03 | ED.ABDPAIN ---
HPI - Abdominal Pain General Chief Complaint: Abdominal Pain Stated Complaint: R Chest to R Flank Pain Time Seen by Provider: 08/07/19 08:17 Source: patient and EMS Mode of arrival: EMS Limitations: no limitations History of Present Illness HPI narrative: Patient seen here yesterday for the same complaints. Right chest and right abdominal pain. Ultrasound and laboratory studies completed. Still not improving. Fever noted today. No recent long travel. No history of blood clots in legs or lungs. Pain is right chest and radiates to the back, right upper quadrant and radiates to the back as well. Patient states decreasing alcohol consumption recently. No seizures. Patient has chronic weakness and numbness of the legs due to vitamin B12 deficiency. He is being followed and cared by a provider for this. Had frequent falls due to this complaint. Denies hitting his head. No loss of consciousness. No seizures. No prior history of rib fractures. Denies any limb injury. Feels short of breath because of pain on deep inspiration. Pain with movement as well. No cough cold congestion fever or chills. No nausea vomiting or diarrhea. No contact with coronavirus persons. Related Data Home Medications Medication Instructions Recorded Confirmed lisinopril-hydrochlorothiazide 1 tab PO DAILY 03/18/19 08/07/19 omeprazole 20 mg PO DAILY 03/18/19 08/07/19 ondansetron 4 mg PO Q6-8H PRN 03/18/19 08/07/19 cyanocobalamin (vitamin B-12) 1,000 mcg PO DAILY 08/06/19 08/07/19 Previous Rx's Medication Instructions Recorded albuterol sulfate 2 puff INHALATION Q4-6H PRN #8 gram 02/19/18 fluticasone propionate [Flovent 3 inhalation INHALATION Q12H #12 05/06/18 HFA] gram hydrocodone-acetaminophen [Warren] 1 tab PO Q4-6H PRN #7 tab 08/06/19 Allergies Allergy/AdvReac Type Severity Reaction Status Date / Time No Known Drug Allergies Allergy Verified 08/06/19 17:04 Review of Systems Review of Systems Narrative: GENERAL: Denies chills, fatigue, malaise, fever, sweats. HEENT: Denies sinus pain, ear pain, sore throat, difficulty swallowing, dizziness. RESPIRATORY: Denies cough wheezing hemoptysis productive cough. Does have dyspnea due to painful breathing CARDIOVASCULAR: Denies chest pain, palpitations, orthopnea, edema, GASTROINTESTINAL: Complaint abdominal pain, no nausea vomiting diarrhea : Denies dysuria, frequency, incontinence, hematuria, urinary retention. MUSCULOSKELETAL: denies weakness, joint pain, or bony pain SKIN: Denies rash, skin lesions, or other NEUROLOGIC: Denies weakness, headache, numbness, change in speech, confusion, seizures, incoordination. PSYCHIATRIC: No concerning psychosocial issues. 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 Well-nourished, well-developed patient, in no distress, not toxic not dyspneic HEAD: Atraumatic. Normocephalic. EYES: Pupils equal round and reactive. Extraocular motions intact. No scleral icterus. No injection or drainage. Not icterus ENT: Nose without bleeding, purulent drainage. Throat without erythema, tonsillar hypertrophy or exudate. Airway patent. NECK: Trachea midline. Non tender CARDIOVASCULAR: Regular rate and rhythm without murmurs, gallops, or rubs. RESPIRATORY: Clear to auscultation. Breath sounds equal bilaterally. No wheezes, rales, or rhonchi. GASTROINTESTINAL: Abdomen soft nondistended, mild tenderness right upper quadrant. Positive Dumont sign. No peritoneal signs. Bowel sounds present EXTREMITIES: No edema or joint tenderness. BACK: Mild right CVA tenderness. NEURO: AOx3. SKIN: No rash or erythema of visible areas no jaundice Initial Vital Signs Initial Vital Signs: Vital Signs Temperature 100.9 F H 08/07/19 08:14 Pulse Rate 103 H 08/07/19 08:14 Respiratory Rate 25 H 08/07/19 08:14 Blood Pressure 138/83 08/07/19 08:14 Pulse Oximetry 94 08/07/19 08:14 Course Course Decision to Admit Date: 08/07/19 Decision to Admit time: 10:38 Orders Ordered: Albuterol (Ventolin Hfa (Vent/Covid R/O)) 2 puff INH Q4H PRN PRN Reason: shortness of breath or wheezin Cyanocobalamin (Vitamin B-12) 1,000 mcg PO DAILY [facility] Last Admin: 08/07/19 14:37 Dose: 1,000 mcg Documented by: KIMBERLI Fluticasone Propionate (Flovent Hfa) 3 puff INH RTBID TEA Last Admin: 08/07/19 20:41 Dose: 3 puff Documented by: RUSS Heparin Sodium (Porcine) (Heparin) 5,000 unit SUBCUT PRN PRN PRN Reason: PER HEPARIN PROTOCOL Last Admin: 08/08/19 05:15 Dose: 2,000 unit Documented by: SONALI Hydrochlorothiazide (Hydrochlorothiazide) 25 mg PO DAILY [facility] Heparin Sodium/Dextrose (Heparin Drip) 25,000 unit in 500 mls @ 29.393 mls/hr IV CONT TEA; Protocol Last Admin: 08/08/19 07:12 Dose: 18.37 units/kg/hr, 30 mls/hr Documented by: Titration: 08/08/19 07:12 Dose: 18.37 units/kg/hr, 30 mls/hr Documented by: Titration: 08/08/19 05:10 Dose: 18.37 units/kg/hr, 30 mls/hr Documented by: Titration: 08/07/19 23:40 Dose: 17.15 units/kg/hr, 28 mls/hr Documented by: Titration: 08/07/19 17:11 Dose: 14.7 units/kg/hr, 24 mls/hr Documented by: Titration: 08/07/19 15:00 Dose: 0 units/kg/hr, 0 mls/hr Documented by: Titration: 08/07/19 13:15 Dose: 17.15 units/kg/hr, 28 mls/hr Documented by: Titration: 08/07/19 12:39 Dose: 18 units/kg/hr, 29.393 mls/hr Documented by: Admin: 08/07/19 10:41 Dose: 18 units/kg/hr, 29.393 mls/hr Documented by: DENISE Dextrose/Sodium Chloride (Dextrose 5%-0.9% Ns) 1,000 mls @ 100 mls/hr IV CONT [facility] Last Admin: 08/08/19 00:37 Dose: 100 mls/hr Documented by: Infusion: 08/08/19 00:37 Dose: 100 mls/hr Documented by: Admin: 08/07/19 14:37 Dose: 100 mls/hr Documented by: KIMBERLI Ceftriaxone Sodium/Dextrose (Rocephin) 1 gm in 50 mls @ 100 mls/hr IV Q24H [facility] Last Admin: 08/07/19 13:04 Dose: Not Given Documented by: KIMBERLI Azithromycin 500 mg/ Dextrose 250 mls @ 250 mls/hr IV Q24H [facility] Last Admin: 08/07/19 13:04 Dose: Not Given Documented by: KIMBERLI Lisinopril (Zestril) 20 mg PO DAILY [facility] Naloxone HCl (Narcan) 0.2 mg IV Q2MIN PRN PRN Reason: Opiate Reversal Oxycodone HCl (Percolone) 5 mg PO Q4HR PRN PRN Reason: Pain, Moderate (4-6) Last Admin: 08/07/19 21:54 Dose: 5 mg Documented by: Admin: 08/07/19 20:41 Dose: 5 mg Documented by: RUSS Oxycodone HCl (Percolone) 10 mg PO Q4HR PRN PRN Reason: Pain, Severe (7-10) Last Admin: 08/08/19 03:42 Dose: 10 mg Documented by: SONALI Discontinued Medications Fluticasone Propionate (Flovent Hfa) 3 puff INH Q12H [facility] Last Admin: 08/07/19 13:57 Dose: Not Given Documented by: KIMBERLI Heparin Sodium (Porcine) (Heparin) 6,500 unit 80 unit/kg (6500 unit) IV NOW ONE Stop: 08/07/19 09:50 Last Admin: 08/07/19 10:40 Dose: 6,500 unit Documented by: DENISE Sodium Chloride (Normal Saline 0.9%) 1,000 mls @ 1,000 mls/hr IV BOLUS ONE Stop: 08/07/19 09:23 Last Infusion: 08/07/19 10:05 Dose: 0 mls/hr Documented by: Admin: 08/07/19 08:41 Dose: 1,000 mls/hr Documented by: CHAPARRITA Ceftriaxone Sodium/Dextrose (Rocephin) 1 gm in 50 mls @ 100 mls/hr IV NOW ONE Stop: 08/07/19 10:56 Last Infusion: 08/07/19 11:21 Dose: 0 mls/hr Documented by: Admin: 08/07/19 10:36 Dose: 100 mls/hr Documented by: DENISE Azithromycin 500 mg/ Dextrose 250 mls @ 250 mls/hr IV NOW ONE Stop: 08/07/19 10:28 Last Infusion: 08/07/19 12:30 Dose: 0 mls/hr Documented by: Admin: 08/07/19 11:23 Dose: 250 mls/hr Documented by: DENISE Ibuprofen (Advil) 800 mg PO NOW ONE Stop: 08/07/19 08:33 Last Admin: 08/07/19 08:41 Dose: 800 mg Documented by: CHAPARRITA Ketorolac Tromethamine (Toradol) 15 mg IV NOW ONE Stop: 08/07/19 23:51 Last Admin: 08/08/19 00:37 Dose: 15 mg Documented by: SONALI Ondansetron HCl (Zofran) 4 mg IV NOW ONE Stop: 08/07/19 08:34 Last Admin: 08/07/19 08:42 Dose: 4 mg Documented by: CHAPARRITA Reevaluation(s) Reevaluation #1: Girlfriend at bedside. Patient in no distress. Not dyspneic. Time: 10:38 Consultations Consultation #1: s/w dr daniels.. [employer] at [facility]. Reviewed patient records with him, he does not feel patient needs to be transferred and can be kept here at our facility Time: 10:28 Consultation #2: Spoke with our hospitalist. dr shukla..will admit Time: 10:38 Vital Signs Vital signs: Vital Signs - 8 hr 08/07/19 08:14 08/07/19 09:29 08/07/19 09:50 Temperature 100.9 F H Pulse Rate 103 H 96 H Respiratory Rate 25 H 18 Blood Pressure 138/83 Blood Pressure [Left Arm] 148/89 H Pulse Oximetry 94 94 97 08/07/19 10:00 Temperature Pulse Rate 97 H Respiratory Rate 19 Blood Pressure Blood Pressure [Left Arm] Pulse Oximetry 95 MDM - Abdominal Pain Differential Diagnosis Differential diagnosis: Likely abdominal pain, pancreatitis (Cholecystitis/pneumonia/PE) and other (Pneumonia versus pulmonary embolism) Lab Data Result diagrams: 08/08/19 04:15 08/08/19 04:15 Labs: Lab Results 08/07/19 08/07/19 08/07/19 Range/Units 09:41 09:41 09:41 WBC 9.8 (4.5-11.0) X10^3/uL RBC 4.29 L (4.5-5.9) X10^6/uL Hgb 15.7 (13.5-17.5) g/dL Hct 43.9 (41-53) % MCV 102.3 H (80-100) fL MCH 36.7 H (26-34) PG MCHC 35.9 (30-36) % RDW 14.2 (11.6-14.8) % Plt Count 258 (150-400) X10^3/uL Neut % (Auto) 81.9 H (50-75) % Lymph % (Auto) 6.9 L (25-40) % [place] % (Auto) 10.4 (3-14) % Eos % (Auto) 0.5 L (2-4) % Baso % (Auto) 0.3 (0-2) % Neut # (Auto) 8000 H (7003-6087) /uL Lymph # (Auto) 700 L (6469-2578) /uL [place] # (Auto) 1000 H (0-900) /uL Eos # (Auto) 100 (0-450) /uL Baso # (Auto) 0 (0-100) /uL PT (10.1-12.7) SECONDS INR (0.9-1.3) APTT (26.4-36.2) SECONDS Sodium 133 L (137-145) mmol/L Potassium 3.4 (3.4-5.1) mmol/L Chloride 93 L (98-107) mmol/L Carbon Dioxide 29 (22-32) mmol/L BUN 15 (9-20) mg/dL Creatinine 0.94 (0.66-1.25) mg/dL Estimated GFR > 60.0 (>60) mL/min BUN/Creatinine Ratio 16.0 (6-22) Glucose 123 H (70-100) mg/dL Calcium 9.4 (8.4-10.2) mg/dL Total Bilirubin 2.5 H (0.2-1.3) mg/dL AST 82 H (17-59) IU/L ALT 65 H (<50) IU/L Alkaline Phosphatase 166 H (38-126) U/L Total Creatine Kinase 35 L (55-170) U/L CK-MB (CK-2) TNP CK-MB (CK-2) Rel Index TNP Troponin I < 0.012 (0.01-0.034) ng/mL Total Protein 7.3 (6.3-8.2) g/dL Albumin 4.1 (3.5-5.0) g/dL Globulin 3.2 (1.7-4.1) g/dL Albumin/Globulin Ratio 1.3 (1.0-2.8) Lipase < 10 L (23-300) U/L Vitamin B12 (239-931) pg/mL Acetaminophen (10-30) ug/mL COVID-19 PCR (Negative) 08/07/19 08/07/19 08/07/19 Range/Units 09:41 09:41 09:41 WBC (4.5-11.0) X10^3/uL RBC (4.5-5.9) X10^6/uL Hgb (13.5-17.5) g/dL Hct (41-53) % MCV (80-100) fL MCH (26-34) PG MCHC (30-36) % RDW (11.6-14.8) % Plt Count (150-400) X10^3/uL Neut % (Auto) (50-75) % Lymph % (Auto) (25-40) % [place] % (Auto) (3-14) % Eos % (Auto) (2-4) % Baso % (Auto) (0-2) % Neut # (Auto) (8317-9612) /uL Lymph # (Auto) (6783-1145) /uL [place] # (Auto) (0-900) /uL Eos # (Auto) (0-450) /uL Baso # (Auto) (0-100) /uL PT 13.2 H (10.1-12.7) SECONDS INR 1.1 (0.9-1.3) APTT 32 (26.4-36.2) SECONDS Sodium (137-145) mmol/L Potassium (3.4-5.1) mmol/L Chloride (98-107) mmol/L Carbon Dioxide (22-32) mmol/L BUN (9-20) mg/dL Creatinine (0.66-1.25) mg/dL Estimated GFR (>60) mL/min BUN/Creatinine Ratio (6-22) Glucose (70-100) mg/dL Calcium (8.4-10.2) mg/dL Total Bilirubin (0.2-1.3) mg/dL AST (17-59) IU/L ALT (<50) IU/L Alkaline Phosphatase (38-126) U/L Total Creatine Kinase (55-170) U/L CK-MB (CK-2) CK-MB (CK-2) Rel Index Troponin I (0.01-0.034) ng/mL Total Protein (6.3-8.2) g/dL Albumin (3.5-5.0) g/dL Globulin (1.7-4.1) g/dL Albumin/Globulin Ratio (1.0-2.8) Lipase (23-300) U/L Vitamin B12 686 (239-931) pg/mL Acetaminophen < 10 L (10-30) ug/mL COVID-19 PCR (Negative) 08/07/19 Range/Units 10:20 WBC (4.5-11.0) X10^3/uL RBC (4.5-5.9) X10^6/uL Hgb (13.5-17.5) g/dL Hct (41-53) % MCV (80-100) fL MCH (26-34) PG MCHC (30-36) % RDW (11.6-14.8) % Plt Count (150-400) X10^3/uL Neut % (Auto) (50-75) % Lymph % (Auto) (25-40) % [place] % (Auto) (3-14) % Eos % (Auto) (2-4) % Baso % (Auto) (0-2) % Neut # (Auto) (5373-0394) /uL Lymph # (Auto) (6131-9929) /uL [place] # (Auto) (0-900) /uL Eos # (Auto) (0-450) /uL Baso # (Auto) (0-100) /uL PT (10.1-12.7) SECONDS INR (0.9-1.3) APTT (26.4-36.2) SECONDS Sodium (137-145) mmol/L Potassium (3.4-5.1) mmol/L Chloride (98-107) mmol/L Carbon Dioxide (22-32) mmol/L BUN (9-20) mg/dL Creatinine (0.66-1.25) mg/dL Estimated GFR (>60) mL/min BUN/Creatinine Ratio (6-22) Glucose (70-100) mg/dL Calcium (8.4-10.2) mg/dL Total Bilirubin (0.2-1.3) mg/dL AST (17-59) IU/L ALT (<50) IU/L Alkaline Phosphatase (38-126) U/L Total Creatine Kinase (55-170) U/L CK-MB (CK-2) CK-MB (CK-2) Rel Index Troponin I (0.01-0.034) ng/mL Total Protein (6.3-8.2) g/dL Albumin (3.5-5.0) g/dL Globulin (1.7-4.1) g/dL Albumin/Globulin Ratio (1.0-2.8) Lipase (23-300) U/L Vitamin B12 (239-931) pg/mL Acetaminophen (10-30) ug/mL COVID-19 PCR Negative (Negative) Imaging Data CT scan - chest: Radiologist's Impression: [address] [address] [address] Scan Report Signed Patient: Anand Fulton Roger#: [id number] : 1980Acct:[id number] Age/Sex: 39 / MDate of Service: 08/07/19 Loc: ED Accession Number: [id number] Procedure: CT angio chest PE protocol Ordering Provider: Olu Lehman MD PROCEDURE: CT ANGIO CHEST PE PROTOCOL INDICATIONS: Right-sided chest pain/dyspnea TECHNIQUE: After the administration of intravenous contrast, 2 mm thick sections acquired from the pulmonary apices to the posterior costophrenic angles. 3-dimensional maximum intensity projection (MIP) coronal and sagittal reformats were then acquired through the thorax. For radiation dose reduction, the following was used: automated exposure control, adjustment of mA and/or kV according to patient size. COMPARISON: [facility], CT, CT ABDOMEN PELVIS W CON, 08/07/2019, 8:31. FINDINGS: Image quality: Limited, related to suboptimal timing of the contrast bolus, which is predominantly seen within the aorta. Pulmonary arteries: Evaluation of the pulmonary arteries for emboli is severely limited related to suboptimal timing of the contrast bolus. The majority of the contrast is identified within the aorta and systemic arterial system. However, there is suggestion of potential filling defects within the bilateral lower lobe pulmonary arteries. Lungs and pleura: There is mild consolidation within the bilateral lower lobes in the inferior margin of the right middle lobe. There is also minimal consolidation within the lingula. No effusion or pneumothorax is identified. There is no lung mass or pulmonary nodule. Mediastinum: Heart size is normal, without pericardial effusion. No mediastinal or hilar adenopathy. Thoracic aorta is normal in caliber and enhancement. Esophagus is normal in caliber. There is a small hiatal hernia. Bones and chest wall: No suspicious bony lesions. Ribs and thoracic spine appear intact throughout. Thyroid gland is not enlarged right adequately evaluated. No axillary or supraclavicular adenopathy. Abdomen: Visualized upper abdominal solid organs appear normal in the early arterial phase of enhancement. IMPRESSION: 1. Limited CT pulmonary angiogram with findings that are suspicious for multiple lower lobe pulmonary arterial emboli. A repeat study is recommended for confirmation. 2. Bibasilar consolidation may represent atelectasis versus pneumonia. Pulmonary infarcts in the setting of pulmonary emboli could also have this appearance. 3. Small hiatal hernia. Note: Findings were discussed with Dr. Lehman at 0938 hours (PST) on 08/07/19. Dictated by: Gurdeep Metcalf M.D. on 08/07/2019 at 8:31 Approved by: Gurdeep Metcalf M.D. on 08/07/2019 at 8:39 CT scan - abdomen/pelvis: Radiologist's Impression: [address] [address] [address] Scan Report Signed Patient: Anand Fulton#: [id number] : 1980Acct:[id number] Age/Sex: 39 / MDate of Service: 08/07/19 Loc: ED Accession Number: [id number] Procedure: CT abdomen pelvis w con Ordering Provider: Olu Lehman MD PROCEDURE: CT ABDOMEN PELVIS W CON INDICATIONS: Abdominal pain/right side TECHNIQUE: After the administration of oral and intravenous contrast, 5 mm thick sections acquired from the diaphragms to the symphysis. 5 mm thick coronal and sagittal reformats were performed. For radiation dose reduction, the following was used: automated exposure control, adjustment of mA and/or kV according to patient size. COMPARISON: None. FINDINGS: Image quality: Diagnostic. ABDOMEN: Lung bases: Areas of consolidation within the bilateral lung bases are noted. Heart size is normal. Solid organs: Liver is normal in size. No definite liver lesions are evident. Small focus of fatty infiltration along falciform ligament appears to be present. Gallbladder is not enlarged or inflamed. Biliary system is non-dilated. Pancreas enhances normally. Spleen is normal in size and enhancement. No adrenal nodules. Kidneys are normal in size and enhancement, without hydronephrosis. Peritoneum and bowel: There is a small hiatal hernia. The stomach is otherwise unremarkable. The small bowel loops are nondilated. Layering high attenuation material is seen within multiple small bowel loops, which likely represents an ingested high density liquid. Mild prominence of the wall of the distal colon is present, likely exaggerated by incomplete distention. There is no free fluid, loculated fluid collection or free air. Nodes and vessels: No retroperitoneal or mesenteric lymphadenopathy is identified. However, small retroperitoneal lymph nodes are incidentally noted. Aorta and inferior vena cava are normal in caliber. Bones: No acute fracture or suspicious osseous lesion is identified. PELVIS: Genitourinary: Bladder wall thickness is normal. The prostate is not enlarged. Miscellaneous: No inguinal hernias or adenopathy. There is no free fluid or loculated fluid collection. Bones: No suspicious bony lesions. No acute pelvic fracture is evident. IMPRESSION: 1. No acute process is appreciated within the abdomen or pelvis. 2. No bowel obstruction. 3. Small hiatal hernia. Dictated by: Gurdeep Metcalf M.D. on 08/07/2019 at 8:39 Approved by: Gurdeep Metcalf M.D. on 08/07/2019 at 8:42 US - DVT: Radiologist's Impression: [address] [address] Ultrasound Report Signed Patient: Anand Fulton#: [id number] : 1980Acct:[id number] Age/Sex: 39 / MDate of Service: 08/07/19 Loc: JR52X-5 Accession Number: [id number] Procedure: US periph venous low extrem bi Ordering Provider: Olu Lehman MD PROCEDURE: US PERIPH VENOUS LOW EXTREM BI INDICATIONS: PE TECHNIQUE: Real-time imaging, as well as color and pulse Doppler interrogation, were performed of the deep veins of both legs from the inguinal ligament to the popliteal fossa. COMPARISON: None. FINDINGS: Nonocclusive thrombus is identified within the left popliteal vein that extends into the superficial femoral vein and subsequently into the common femoral vein. No occlusive thrombus is evident. Otherwise the profunda femoral vein on the left is within normal limits. There is no occlusive or nonocclusive thrombus of the of deep vein system of the right lower extremity. Specifically, the right common femoral vein, superficial femoral vein, profunda femoral vein, and popliteal vein are patent and demonstrate normal compressibility, Doppler contusion, and color flow. IMPRESSION: Nonocclusive deep vein thrombus of the left lower extremity. Dictated by: Gurdeep Metcalf M.D. on 08/07/2019 at 10:37 Approved by: Gurdeep Mectalf M.D. on 08/07/2019 at 10:39 ECG Data Attestation: I personally reviewed and interpreted this ECG as follows: Prior ECG tracings: not available for review Interpretation: EKG at 8:25 a.m.. Sinus tachycardia, ventricular rate 101, no ST elevation depression Discharge Plan Departure Patient Disposition: Admitted As Inpatient Clinical Impression: Bilateral pulmonary embolism, Acute deep vein thrombosis of leg, Biliary colic Discharge Date/Time: 08/07/19 12:05 Admit Date/Time: 08/07/19 10:43 Admit Provider: Gwendolyn Shukla
[2019-08-07 10:02] LABS: Add Manual Diff / Slide Review NO; Basophils Absolute Auto 0 /uL (0-100); Basophils Percent Auto 0.3 % (0-2); Eosinophils Absolute Auto 100 /uL (0-450); Eosinophils Percent Auto 0.5 % (2-4); Hematocrit 43.9 % (41-53); Hemoglobin 15.7 g/dL (13.5-17.5); Lymphocytes Absolute Auto 700 /uL (1100-4500); Lymphocytes Percent Auto 6.9 % (25-40); Mean Corpuscular HGB Conc 35.9 % (30-36); Mean Corpuscular Hemoglobin 36.7 PG (26-34); Mean Corpuscular Volume 102.3 fL (80-100); Monocytes Absolute Auto 1000 /uL (0-900); Monocytes Percent Auto 10.4 % (3-14); Neutrophils Absolute Auto 8000 /uL (1500-7000); Neutrophils Percent Auto 81.9 % (50-75); Platelet Count 258 X10^3/uL (150-400); Red Blood Cell Count 4.29 X10^6/uL (4.5-5.9); Red Cell Distribution Width 14.2 % (11.6-14.8); White Blood Cell Count 9.8 X10^3/uL (4.5-11.0)
[2019-08-07 10:11] LABS: INR 1.1 (0.9-1.3); Prothrombin Time 13.2 SECONDS (10.1-12.7)
[2019-08-07 10:14] LABS: PTT Partial Thromboplastin Tim 32 SECONDS (26.4-36.2)
[2019-08-07 10:15] LABS: Alanine Aminotransferase 65 IU/L (<50); Albumin 4.1 g/dL (3.5-5.0); Albumin Globulin Ratio 1.3 (1.0-2.8); Alkaline Phosphatase 166 U/L (38-126); Aspartate Aminotransferase 82 IU/L (17-59); Bilirubin Total 2.5 mg/dL (0.2-1.3); Blood Urea Nitrogen 15 mg/dL (9-20); Calcium 9.4 mg/dL (8.4-10.2); Carbon Dioxide 29 mmol/L (22-32); Chloride 93 mmol/L (98-107); Estimated Glomerular Filt Rate > 60.0 mL/min (>60); Globulin 3.2 g/dL (1.7-4.1); Glucose 123 mg/dL (70-100); HEMOLYSIS < 15 (0-50); Potassium 3.4 mmol/L (3.4-5.1); Sodium 133 mmol/L (137-145); Total Protein 7.3 g/dL (6.3-8.2)
[2019-08-07 10:17] LABS: Lipase < 10 U/L (23-300)
[2019-08-07 10:19] LABS: Acetaminophen < 10 ug/mL (10-30); Creatine Kinase 35 U/L (55-170)
[2019-08-07 10:30] LABS: Troponin I < 0.012 ng/mL (0.01-0.034)
--- NOTE | 2019-08-07 10:32 | DI.US.S_ITS ---
PROCEDURE: US PERIPH VENOUS LOW EXTREM BI INDICATIONS: PE TECHNIQUE: Real-time imaging, as well as color and pulse Doppler interrogation, were performed of the deep veins of both legs from the inguinal ligament to the popliteal fossa. COMPARISON: None. FINDINGS: Nonocclusive thrombus is identified within the left popliteal vein that extends into the superficial femoral vein and subsequently into the common femoral vein. No occlusive thrombus is evident. Otherwise the profunda femoral vein on the left is within normal limits. There is no occlusive or nonocclusive thrombus of the of deep vein system of the right lower extremity. Specifically, the right common femoral vein, superficial femoral vein, profunda femoral vein, and popliteal vein are patent and demonstrate normal compressibility, Doppler contusion, and color flow. IMPRESSION: Nonocclusive deep vein thrombus of the left lower extremity. Dictated by: Gurdeep Metcalf M.D. on 08/07/2019 at 10:37 Approved by: Gurdeep Metcalf M.D. on 08/07/2019 at 10:39
[2019-08-07] MEDS: CEFTRIAXONE 1 GM/50 ML FROZ.PIGGY IV (10:36)
[2019-08-07] MEDS: HEPARIN 5,000 UNIT/ML VIAL 6500 UNIT IV (10:40)
[2019-08-07] MEDS: HEPARIN DRIP 25,000 UNIT/500 ML IV.SOLN 29.393 UNIT IV (10:41)
--- NOTE | 2019-08-07 10:50 | PC.NURSE ---
heparin bolus and unfusion double checked with Martha RN prior giving
--- NOTE | 2019-08-07 10:54 | P.HP_ITS ---
History of Present Illness History of Present Illness Date Patient Seen: 08/07/19 Time Patient Seen: 10:54 Chief complaint: R Chest to R Flank Pain Narrative: This is a 39-year-old male with abdominal pain who on presentation to the emergency department was found to have bilateral pulmonary emboli. He originally presented to the emergency department yesterday with right upper quadrant pain and had a negative abdominal ultrasound done. He came back today with ongoing abdominal pain along with pleuritis so a CT of the abdomen and a CTA of the chest were done showing bilateral basilar pulmonary embolisms. In the last 2 months he has developed rapid onset of bilateral upper and lower extremity numbness that was found to be caused by a vitamin B12 deficiency. He reports that Dr. Naqvi in [place] found a B12 level of 90 in mid July and started him on 1000 mcg of B12 since then. He has not noticed any improvement. He is stumbling and unable to walk normally due to the lack of proprioception. He eats plenty of B12 containing meat but does drink 2 tall beers per day and has been on omeprazole for many years to treat acid reflux. 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 He developed a fever of 101 on arrival in the emergency department but was afebrile at home. He did have some chills and sweats. His presenting sodium of 133 and potassium of 3.4 are related to the chronic hydrochlorothiazide use. 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 He is a disabled cook Safety & Behavioral: Feels Safe in Current Yes Environment Been Physically Hurt or No Threatened By a Person Tobacco & Substance use: Smoking Status Former smoker alcohol intake frequency 0-2 drinks per day Substance Use Type does not use Meds Home Medications and Allergies Home Medications Medication Instructions Recorded Confirmed Type albuterol sulfate 2 puff INHALATION Q4-6H PRN #8 gram 02/19/18 08/06/19 Rx fluticasone propionate [Flovent 3 inhalation INHALATION Q12H #12 05/06/18 08/06/19 Rx HFA] gram lisinopril-hydrochlorothiazide 1 tab PO DAILY 03/18/19 08/06/19 History omeprazole 20 mg PO DAILY 03/18/19 08/06/19 History ondansetron 4 mg PO Q6-8H PRN 03/18/19 08/06/19 History cyanocobalamin (vitamin B-12) 1,000 mcg PO DAILY 08/06/19 08/06/19 History hydrocodone-acetaminophen [Aladdin] 1 tab PO Q4-6H PRN #7 tab 08/06/19 Rx ondansetron 4 mg PO Q6H PRN #14 tab 08/06/19 Rx Allergies Allergy/AdvReac Type Severity Reaction Status Date / Time No Known Drug Allergies Allergy Verified 08/06/19 17:04 Review of Systems Review of Systems Narrative: Positive for bilateral upper and lower extremity numbness, chest pain with deep breath breathing, right upper quadrant pain, chills, sweats. Negative for fevers, coughing, nausea, vomiting, seizures, headaches, bleeding, dysuria, sore throat, new allergies, difficulty talking, bruising, rashes. ROS: Yes All systems reviewed with the patient and are negative except as otherwise documented Exam Vital Signs (past 8 hours): - 08/07/19 08:14 08/07/19 09:29 08/07/19 09:50 Temperature 100.9 F H Pulse Rate 103 H 96 H Respiratory Rate 25 H 18 Blood Pressure 138/83 Blood Pressure [Left Arm] 148/89 H Pulse Oximetry 94 94 97 08/07/19 10:00 Temperature Pulse Rate 97 H Respiratory Rate 19 Blood Pressure Blood Pressure [Left Arm] Pulse Oximetry 95 Oxygen Delivery Method Nasal Cannula Oxygen Flow Rate 2 Narrative Exam Narrative: Alert and oriented x3. Appears to be in mild respiratory distress with short clipped sentences and slight tachypnea. Pupils equally round and reactive to light and accommodation. Extraocular muscles are intact Sclerae are pink and nonicteric Throat looks normal with a normal appearing tongue No lymph nodes are felt head, neck, supraclavicular area There is no thyromegaly JVD is less than 6 cm No carotid bruits are heard Heart is regular rate and rhythm without murmur Lungs have diminished airway sounds bilaterally with splinting to avoid deep breath pleuritis symptoms. Abdomen is soft, bowel sounds positive, nontender, no organomegaly. Extremities have no ankle edema, venous cord, Homans sign. Skin has no rash or jaundice. Neurological exam No tremor Cranial nerves 2-12 test intact Gait and balance are not tested Proprioception/position sense is not intact in the feet. He is unable to detect the direction that his toes are being passively move during the exam Sensation is symmetric in both upper and lower extremities but appears to be diminished to light touch in the lower extremities. Dope Sprayer strength and motor strength in hands and in the feet appears to be normal. Babinski's are downgoing bilaterally Objective Labs Result Diagrams: 08/07/19 09:41 08/07/19 09:41 Labs: Laboratory Results - last 24 hr 08/07/19 08/07/19 08/07/19 09:41 09:41 09:41 WBC 9.8 RBC 4.29 L Hgb 15.7 Hct 43.9 MCV 102.3 H MCH 36.7 H MCHC 35.9 RDW 14.2 Plt Count 258 Neut % (Auto) 81.9 H Lymph % (Auto) 6.9 L [place] % (Auto) 10.4 Eos % (Auto) 0.5 L Baso % (Auto) 0.3 Neut # (Auto) 8000 H Lymph # (Auto) 700 L [place] # (Auto) 1000 H Eos # (Auto) 100 Baso # (Auto) 0 PT INR APTT Sodium 133 L Potassium 3.4 Chloride 93 L Carbon Dioxide 29 BUN 15 Creatinine 0.94 Estimated GFR > 60.0 BUN/Creatinine Ratio 16.0 Glucose 123 H Calcium 9.4 Total Bilirubin 2.5 H AST 82 H ALT 65 H Alkaline Phosphatase 166 H Total Creatine Kinase 35 L CK-MB (CK-2) TNP CK-MB (CK-2) Rel Index TNP Troponin I < 0.012 Total Protein 7.3 Albumin 4.1 Globulin 3.2 Albumin/Globulin Ratio 1.3 Lipase < 10 L Acetaminophen 08/07/19 08/07/19 09:41 09:41 WBC RBC Hgb Hct MCV MCH MCHC RDW Plt Count Neut % (Auto) Lymph % (Auto) [place] % (Auto) Eos % (Auto) Baso % (Auto) Neut # (Auto) Lymph # (Auto) [place] # (Auto) Eos # (Auto) Baso # (Auto) PT 13.2 H INR 1.1 APTT 32 Sodium Potassium Chloride Carbon Dioxide BUN Creatinine Estimated GFR BUN/Creatinine Ratio Glucose Calcium Total Bilirubin AST ALT Alkaline Phosphatase Total Creatine Kinase CK-MB (CK-2) CK-MB (CK-2) Rel Index Troponin I Total Protein Albumin Globulin Albumin/Globulin Ratio Lipase Acetaminophen < 10 L Assessment & Plan Assessment & Plan narrative: Bilateral Pulmonary Embolus, present on admission, acute -Bibasilar PE on CTA - treatment options discussed with ICU hospitalist Dr. Lea in [place] by Dr. Lehman in the ED -Right leg DVT also present on US -Factor V Leiden, Protein C, Protein S and Antithrombin III ordered -IV Heparin drip with transition to Eliquis planned 08/07 -Etiology likely to be the relative immobility of B12 neuropathy, recent onset, likely caused by retirement PPI use Pleuritis, present on admission, acute -typical of acute pulmonary embolus -This symptom was not in his presenting complaint but he describes pain with deep breathing as the reason for his rapid/shallow breaths Subacute Combined Degeneration, present on admission, chronic -he describes a recent B12 level of 90 -he describes long-term omeprazole use -started on 1000 mcg p.o. B12 daily about 3 weeks ago with subtle improvement in hand numbness the only changes so far. -PT and OT evaluation and treatment. Vitamin B12 Deficiency, present on admission, chronic -check B12 level, per patient reports he was 90 in mid July with Dr. Naqvi in [place] -continue vitamin B12 1000 mcg daily by mouth -etiology is most likely a combination of his daily alcohol use, 2 ?tall beers? along with chronic PPI use. -he is not a vegan Asthma, present on admission, chronic -continue albuterol and Flovent -Covid negative Hypertension, present on admission, chronic -BP on admission 138/73 -continue Lisinopril/HCTZ -Replace and monitor the K/Na which are 3.4 and 133 from the HCTZ
[2019-08-07 11:22] LABS: COVID19 -Nasal RAPID Negative (Negative)
[2019-08-07] MEDS: AZITHROMYCIN 500 MG in DEXTROSE 5% IN WATER 250 ML IV (11:23)
[2019-08-07 13:07] LABS: Vitamin B12 686 pg/mL (239-931)
[2019-08-07] MEDS: DEXTROSE 5%-0.9% NS 1,000 ML 100 ML IV (14:37)
[2019-08-07] MEDS: CYANOCOBALAMIN (VITAMIN B-12) 500 MCG TABLET 1000 MCG PO (14:37)
--- NOTE | 2019-08-07 14:42 | RT ---
Flovent MDi ordered, but did not float to my worklist, so I cannot admin it. Called Pharmacist (Vy) and informed her, she was going to try and fix it. CPOX ordered by Hospitalist. Pt declined the O2 sat probe that adheres, he wants the clip-on removable type.
[2019-08-07 14:50] LABS: PTT Partial Thromboplastin Tim 148 SECONDS (26.4-36.2)
--- NOTE | 2019-08-07 15:35 | PC.NURSE ---
PTT per protocol was ordered at 1640, lab dong and resulted early with PTT at 148. Heparin gtt stopped and held for [id number], then to restart with decreased 200 units per hour per protocol ordered. Call light with in reach, high fall precaution protocol in place, bed alarm on for safety.
--- NOTE | 2019-08-07 16:21 | OT.IPNOTE ---
OT to check on pt tomorrow and see if pt more medical appropriate for OT eval.
--- NOTE | 2019-08-07 16:30 | PT-IP ANOTE ---
talked to nurse regarding pt. per chart, pt in hospital for PE and DVT and nurse stated that pt just started with heparin and is not appropriate for PT at this time. Informed nurse that PT protocols/guidelines usually has to wait for at least 72 hours of anticoagulants before PT begins or that PT/INR are within therapeutic range. asked nurse if pt will be ready tomorrow and nurse stated no. informed nurse that if pt is not going to be ready, PT eval order may have to be discontinued and re-ordered when pt is more appropriate. Nurse agreed but will not be able to talk to the doctor because she is already off her shift. Talked to Dr. gibson to informed regarding concerns and agreed to to hold physical therapy today but stated that he thinks pt will be ready tomorrow. will f/u tomorrow.
--- NOTE | 2019-08-07 16:38 | PC.NURSE ---
Addendum entered by Shilpi Allen R.N. 08/07/19 23:33: PTT reported late this evening as 40. Reviewed protocol with NOC KENYON Pabon. Pt was given heparin bolus as well as infusion of heparin increased by 200 units. Current setting is 1400 units infusing @ 28 cc/hr. Recheck PTT @ 0415 08/07. Pt informed. Addendum entered by Shilpi Allen R.N. 08/07/19 22:38: Pt reports no pain relief with 5 mg oxycodone (right flank/thoracic region). As 10 mg is ordered as well as 5 mg, this filing writer administered additional 5 mg to equal 10 mg dose. Will continue to monitor. Awaiting 2219 PTT result. Addendum entered by Shilpi Allen R.N. 08/07/19 20:50: Pt c/o right flank/thoracic pain sharp in nature 06/10. Hospitalist David made aware and orders entered for pain management. Administered 5 mg oxycodone. Pt requests oxygen be replaced. This was done although pt's room air saturation level 97%. Addendum entered by Shilpi Allen R.N. 08/07/19 19:02: Trial of room air. 97% off of oxygen. Admits to numbness/weakness to BL LE's as well as hands. Reports this is not new problem during shift report/exchange. Original Note: Pt awake, alert resting quietly in bed. 02 2L per nc sats 99% per continuous pulse monitor. Heparin drip restarted as per dayshift report @ 24 cc/hr. Next PTT ordered for 2220 six hours past time of restarted drip. Pt denies pain. Abdomen is distended and pt reports this has been the case for some time. Pt's S.O. is present @ bedside. PT and pt's S.O. were cautioned not to attempt OOB without calling for staff assistance. Bed alarm is in place.
[2019-08-07] MEDS: FLUTICASONE 110MCG HFA 120 PUFF INH (20:41)
[2019-08-07] MEDS: OXYCODONE IR 5 MG TABLET PO ×2 (20:41→21:54)
[2019-08-07 22:36] LABS: PTT Partial Thromboplastin Tim 40 SECONDS (26.4-36.2)
[2019-08-07] MEDS: HEPARIN 5,000 UNIT/ML VIAL 5000 UNIT (23:23)
[2019-08-08] VITALS (8 sets, daily range): BP systolic 115–143; BP diastolic 68–96; PULSE 71–90; RESP 12–18; TEMP 36.6–38.2; O2SAT 94–99
[2019-08-08] MEDS: KETOROLAC 15 MG/ML VIAL IV (00:37)
[2019-08-08] MEDS: DEXTROSE 5%-0.9% NS 1,000 ML 100 ML IV ×2 (00:37→11:42)
[2019-08-08] MEDS: OXYCODONE IR 10 MG TABLET PO ×5 (03:42→21:14)
[2019-08-08 04:47] LABS: Add Manual Diff / Slide Review NO; Basophils Absolute Auto 0 /uL (0-100); Basophils Percent Auto 0.5 % (0-2); Eosinophils Absolute Auto 300 /uL (0-450); Eosinophils Percent Auto 3.8 % (2-4); Hematocrit 42.3 % (41-53); Hemoglobin 14.8 g/dL (13.5-17.5); Lymphocytes Absolute Auto 1800 /uL (1100-4500); Lymphocytes Percent Auto 20.9 % (25-40); Mean Corpuscular HGB Conc 34.9 % (30-36); Monocytes Absolute Auto 900 /uL (0-900); Monocytes Percent Auto 10.5 % (3-14); Neutrophils Absolute Auto 5700 /uL (1500-7000); Neutrophils Percent Auto 64.3 % (50-75); Platelet Count 270 X10^3/uL (150-400); Red Blood Cell Count 4.11 X10^6/uL (4.5-5.9); Red Cell Distribution Width 14.3 % (11.6-14.8); White Blood Cell Count 8.8 X10^3/uL (4.5-11.0)
[2019-08-08 04:51] LABS: PTT Partial Thromboplastin Tim 48 SECONDS (26.4-36.2)
[2019-08-08 04:53] LABS: Blood Urea Nitrogen 13 mg/dL (9-20); Calcium 9.1 mg/dL (8.4-10.2); Carbon Dioxide 27 mmol/L (22-32); Chloride 101 mmol/L (98-107); Estimated Glomerular Filt Rate > 60.0 mL/min (>60); Glucose 105 mg/dL (70-100); HEMOLYSIS 16 (0-50); Potassium 3.3 mmol/L (3.4-5.1); Sodium 135 mmol/L (137-145)
[2019-08-08] MEDS: HEPARIN 5,000 UNIT/ML VIAL 5000 UNIT SUBCUT ×2 (05:15→05:18)
--- NOTE | 2019-08-08 06:31 | PC.NURSE ---
PTT this morning 48 bolus of 2000 units of Heparin administered & infusion rate was adjusted & increased to 100 units/hr. 30 cc/hr. PTT ordered for 1050 today. Will report to day RN. & monitor.
[2019-08-08] MEDS: HEPARIN DRIP 25,000 UNIT/500 ML IV.SOLN 30 UNIT IV (07:12)
[2019-08-08 07:39] LABS: Alanine Aminotransferase 137 IU/L (<50); Albumin 3.7 g/dL (3.5-5.0); Albumin Globulin Ratio 1.2 (1.0-2.8); Alkaline Phosphatase 175 U/L (38-126); Aspartate Aminotransferase 175 IU/L (17-59); Bilirubin Conjugated 0.3 md/dL (0.0-0.3); Bilirubin Total 2.2 mg/dL (0.2-1.3); Bilirubin Unconjugated 1.2 mg/dL (0.0-1.1); Globulin 3.2 g/dL (1.7-4.1); HEMOLYSIS 20 (0-50); Total Protein 6.9 g/dL (6.3-8.2)
[2019-08-08] MEDS: lisinopriL 20 MG TABLET PO (08:21)
[2019-08-08] MEDS: CYANOCOBALAMIN (VITAMIN B-12) 500 MCG TABLET 1000 MCG PO (08:22)
[2019-08-08] MEDS: hydroCHLOROthiazide 25 MG TABLET PO (08:22)
--- NOTE | 2019-08-08 10:59 | P.PN_ITS ---
Subjective Subjective Date Patient Seen: 08/08/19 Time Patient Seen: 10:59 Interval history: He is seen in his room today to follow-up the bilateral pulmonary embolus, left leg DVT, subacute combined degeneration and B12 neuropathy. The potassium level today is 3.3 with a sodium of 135, pertinent to the hydrochlorothiazide that he takes. His T-max is 99.2? with routine normal vital signs. His bilirubin is elevated at 2.5 with an AST 82 and ALT of 65. Those will need to be repeated. He appears to be in mild alcohol withdrawal with a somewhat anxious/detached/distracted appearance although he does not acknowledge feeling that way. He states his last beer intake was 2 days ago. The CBC is normal. Overnight oxycodone was added for the pleuritic chest pain as he is not a Toradol candidate while on the heparin drip. Exam Vital Signs (past 8 hours): - 08/08/19 03:40 08/08/19 07:00 08/08/19 08:21 Temperature 99.2 F 97.8 F Pulse Rate 71 78 Respiratory Rate 18 18 Blood Pressure 143/86 H 138/85 138/85 Pulse Oximetry 99 96 Oxygen Delivery Method Room Air Oxygen Flow Rate 0 Narrative Exam Narrative: He is alert and oriented x3, complaining of ongoing right lower chest pleuritic pain. His lung exam is compromised by splinting/shallow breathing to avoid the pleuritic pain. He appears internally distracted/detached, likely in early alcohol withdrawal. Heart is regular rate and rhythm without murmur Lungs are clear to auscultation bilaterally Extremities have no ankle edema Neurologic exam Diminished sensation and proprioception/position sense in his feet and diminished sensation in his hands. Objective Labs Result Diagrams: 08/08/19 04:15 08/08/19 04:15 Labs: Laboratory Results - last 24 hr 08/07/19 08/07/19 08/07/19 09:41 10:20 14:11 WBC RBC Hgb Hct MCV MCH MCHC RDW Plt Count Neut % (Auto) Lymph % (Auto) [place] % (Auto) Eos % (Auto) Baso % (Auto) Neut # (Auto) Lymph # (Auto) [place] # (Auto) Eos # (Auto) Baso # (Auto) APTT 148 H* D Sodium Potassium Chloride Carbon Dioxide BUN Creatinine Estimated GFR BUN/Creatinine Ratio Glucose Calcium Total Bilirubin Conjugated Bilirubin Unconjugated Bilirubin AST ALT Alkaline Phosphatase Total Protein Albumin Globulin Albumin/Globulin Ratio Vitamin B12 686 COVID-19 PCR Negative 08/07/19 08/08/19 08/08/19 22:15 04:15 04:15 WBC 8.8 RBC 4.11 L Hgb 14.8 Hct 42.3 MCV 103.0 H MCH 36.0 H MCHC 34.9 RDW 14.3 Plt Count 270 Neut % (Auto) 64.3 Lymph % (Auto) 20.9 L [place] % (Auto) 10.5 Eos % (Auto) 3.8 Baso % (Auto) 0.5 Neut # (Auto) 5700 Lymph # (Auto) 1800 [place] # (Auto) 900 Eos # (Auto) 300 Baso # (Auto) 0 APTT 40 H D 48 H D Sodium Potassium Chloride Carbon Dioxide BUN Creatinine Estimated GFR BUN/Creatinine Ratio Glucose Calcium Total Bilirubin Conjugated Bilirubin Unconjugated Bilirubin AST ALT Alkaline Phosphatase Total Protein Albumin Globulin Albumin/Globulin Ratio Vitamin B12 COVID-19 PCR 08/08/19 08/08/19 04:15 04:30 WBC RBC Hgb Hct MCV MCH MCHC RDW Plt Count Neut % (Auto) Lymph % (Auto) [place] % (Auto) Eos % (Auto) Baso % (Auto) Neut # (Auto) Lymph # (Auto) [place] # (Auto) Eos # (Auto) Baso # (Auto) APTT Sodium 135 L Potassium 3.3 L Chloride 101 Carbon Dioxide 27 BUN 13 Creatinine 0.93 Estimated GFR > 60.0 BUN/Creatinine Ratio 14.0 Glucose 105 H Calcium 9.1 Total Bilirubin 2.2 H Conjugated Bilirubin 0.3 Unconjugated Bilirubin 1.2 H AST 175 H ALT 137 H Alkaline Phosphatase 175 H Total Protein 6.9 Albumin 3.7 Globulin 3.2 Albumin/Globulin Ratio 1.2 Vitamin B12 COVID-19 PCR Assessment & Plan Assessment & Plan narrative: Bilateral Pulmonary Embolus, present on admission, acute -Bibasilar PE on CTA - treatment options discussed with ICU hospitalist Dr. Lae in [place] by Dr. Lehman in the ED -Left leg DVT also present on US -Factor V Leiden, Protein C, Protein S and Antithrombin III ordered 08/06 -IV Heparin drip with transition to Eliquis 08/07 -Etiology is the immobility of severe B12 neuropathy, recent onset, likely caused by halfway PPI use -Ok to begin PT/OT for Subacute Combined Degeneration 08/07 Pleuritis, present on admission, acute -typical of acute pulmonary embolus -Continue Oxycodone. Toradol is relatively contraindicated Subacute Combined Degeneration, present on admission, chronic -he describes a recent B12 level of 90 -B12 level 686 08/06 -he describes long-term omeprazole use -started on 1000 mcg p.o. B12 daily about 3 weeks ago with subtle improvement in hand numbness the only changes so far. -PT and OT evaluation and treatment. -It is clear from initial assessments that he is very ataxic and will need wheelchair use with extensive ambulatory retraining/assistance. He is unlikely to be safe at home and SNF or inpatient rehab is likely to be recommended. Vitamin B12 Deficiency, present on admission, chronic -686 B12 level, per patient reports he was [address] in mid July [address] Dr. Naqvi in [place] -continue vitamin B12 1000 mcg daily by mouth -etiology is most likely a combination of his daily alcohol use, 2 ?tall beers? along with chronic PPI use. -he is not a vegan Asthma, present on admission, chronic -continue albuterol and Flovent -Covid negative Hypertension, present on admission, chronic -BP on admission 138/73 -continue Lisinopril/HCTZ -Replace and monitor the K/Na which are 3.4 and 133 from the HCTZ Alcohol Withdrawal -Initiate CIWA -08/07 increased anxiety/distraction compared to 08/06 -48h since last alcohol -Add Folate, Thiamine and Lorazepam. Continue B12 Hypokalemia -secondary to HCTZ -K3.3 on 08/07 -PO Kcl ordered and recheck 08/08
[2019-08-08] MEDS: CEFTRIAXONE 1 GM/50 ML FROZ.PIGGY IV (11:16)
--- NOTE | 2019-08-08 11:22 | OT.IP.EVAL ---
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 Mobility and Gait Pt was IND in all mobility ~2 months ago. Activities of Daily Living and IADL's Pt was IND in all ADLs ~2 months ago Social History Household Members significant other,other Living Arrangements House Number of Floors (Floors) One Floor Number of Stairs To Enter/Railing? level entry but 1 step up from the bedroom to the rest of the house. Home Environment Standard Height Toilet,Tub/ Shower Home Equipment Straight Cane Employment Status Unknown Additional Social History Comment Per pt's GF, pt was working up till July 15 M2 OT-IP Current Condition Start: 08/08/19 14:02 Freq: Status: Active Protocol: Document 08/08/19 14:03 CGR (Rec: 08/08/19 14:32 CGR [email or web address]) Occupational Therapy Current Condition Current Condition Evaluation Date 08/08/19 Treatment Diagnosis Generalized weakness, B pulmonary emboli, LLE DVT Diagnosis Onset Date 08/07/19 M3 OT- IP Subjective and Pain Start: 08/08/19 14:02 Freq: Status: Active Protocol: Document 08/08/19 14:03 CGR (Rec: 08/08/19 14:32 CGR [email or web address]) OT- Subjective Occupational Therapy Visit Type Type Initial Evaluation Visit Start Time 10:38 Visit Stop Time 11:22 Total Visit Minutes 44 Notes Partial cotreat with P.T. Occupational Therapy Visit Comments Patient Comments I feel crowded OT Pain Assessment Pain When Pain Assessed During Mobility Pain Present Pain Present Pain Reported Location Right Flank Scale Used Pt did not rate but calls out in pain Description Sharp Pain Behaviors Calling Out,Guarding,Holding Area,Wincing Management Techniques Modification of Treatment,Re- positioning M4 OT- IP ADL's Start: 08/08/19 14:02 Freq: Status: Active Protocol: Document 08/08/19 14:03 CGR (Rec: 08/08/19 14:32 CGR [email or web address]) OT IDG-[id number]-[id number] General Evaluation Self-Feeding Ability Independent Areas Needing Assistance Drinking From Cup/Glass Comments OT Self-Feeding Comments Noted abnormal UE movements and grasp but pt is functional for drinking from cup. Pt needs assessment with silverware. OT ADL-Grooming Comments OT Grooming Comments Pt declined OT ADL-Oral Care Comments Oral Care Comments Pt declined OT ADL-Dressing General Eval Lower Body Dressing Ability Total Assistance Areas Needing Assistance Socks Comments OT Dressing Comments Lying in bed. Pt states that he hasn't been changing clothes since his condition has gotten worse. OT ADL-Toileting Comments OT Toileting Comments Not performed in this session. OT ADL-Bathing Comments OT Bathing Comments Not performed M5 OT- IP IADL's Start: 08/08/19 14:02 Freq: Status: Active Protocol: Document 08/08/19 14:03 CGR (Rec: 08/08/19 14:32 CGR [email or web address]) OT-Instrumental Activities of Daily Living Deficits IADL Deficits Identified Deficits Home Safety Awareness Awareness of Need for Assistance at Home Decreased Awareness Ability to Problem Solve Emergency Able to Problem Solve Situations M6 OT- IP Functional Cognition Start: 08/08/19 14:02 Freq: Status: Active Protocol: Document 08/08/19 14:03 CGR (Rec: 08/08/19 14:32 CGR [email or web address]) Cognitive Factors Limiting Selfcare Function Cognitive Ability Level of Alertness Alert,Confusional State Patient Orientation Name,Age,Birthday,Month,Date, Year,Day of Week,Place, Situation Attention Span Ability Capable of Focused Attention, Unable to Sustain Attention Ability to Follow Commands Able to Follow One Step Commands with Increased Time, Able to Follow One Step Commands with Repetition Cognitive Tests SLUMS Pt participated in SLUMS with a score of 25/30. Unsure of pt 's highshchool education level but this is likley within normal limits for this patient . OT- Vision and Hearing OT- Hearing Assessment OT- Hearing Assessment WFL OT- Vision Assessment Visual Acuity WFL Vision Assessment Comments Pt had difficulty with all occular pursuits. M7 OT- IP Mobility and Balance Start: 08/08/19 14:02 Freq: Status: Active Protocol: Document 08/08/19 14:03 CGR (Rec: 08/08/19 14:32 CGR [email or web address]) OT- Bed Mobility Assessment Rolling Type of Rolling Roll to Left Level of Assistance Contact Guard Assistance Supine to Sit Supine to Sit Assist Contact Guard Assistance Scooting Scooting to Edge of Bed Contact Guard Assistance OT-Transfer Assessment Sit to and From Stand Sit to and from Stand Minimal Assistance,2 Person Assistance Transfers Transfer Ability Minimal Assistance,2 Person Assistance Technique Transfer Destination Bed,Chair Transfer Technique Stand Step Pivot Devices Transfer Assistive Devices Gait Belt,Front Wheeled Walker Comments Mobility Comments Pt with steps to chair and noted severe ataxia. Pt demonstrates poor proprioception, sensation, and strength for mobility. OT- Balance Assessment Sitting Balance and Reactions Static Sitting Balance Ability Fair Dynamic Sitting Balance Ability Poor Standing Balance and Reactions Static Standing Balance Ability Poor Dynamic Standing Balance Ability Poor M8 OT- IP Objective Assessments Start: 08/08/19 14:02 Freq: Status: Active Protocol: Document 08/08/19 14:03 CGR (Rec: 08/08/19 14:32 CGR [email or web address]) OT Gross Range of Motion Upper Extremity Range of Motion Assessment Within Functional Limits OT Strength Comments Strength Comments Grossly 3+/5 throughout. OT- Coordination Assessment Upper Extremity Finger to Nose Test Within Functional Limits Finger Tapping Test Within Functional Limits OT-Muscle Tone Assessment Muscle Tone WNL No Comments Muscle Tone Comments poor consistancy of contrations OT Sensation Assessment Location Upper Extremity Light Touch Absent Deep Pressure Absent Proprioception (Position) Absent Tactile Localization Absent Sensation Description Numbness Edema Edema Absent M9 OT- IP Assessment and Plan Start: 08/08/19 14:02 Freq: Status: Active Protocol: Document 08/08/19 14:03 CGR (Rec: 08/08/19 14:32 CGR [email or web address]) OT Summary Assessment and Plan Potential Rehabilitation Potential Good Analytic Complexity at Evaluation High Summary OT Impairments Pain,Strength,Balance, Coordination,Sensation,Tone, Functional Cognition, Functional Mobility,Self- Feeding,Grooming,Dressing, Toileting,Bathing,Toilet Transfers,Shower Transfers, Activity Tolerance Progress Towards Goals Slow Progress due to Pain,Slow Progress due to Medical Issues,Slow Progress due to Activity Tolerance Assessment Summary Pt presents as a high complexity evaluation with significant deficits noted to multiple systems that are imparing his ability to participate in ADLs and functional mobility. Pt appears to be suffering from severe b12 deficiency with multiple complicating factors. Pt will benefit from Ot services while in the hospital and upon discharge. Per CM, pt is unlikely to have the ability to go to an acute rehab facility and will likely have to go home. Pt is unlikely safe for a home discharge at this time. Per Pt 's GF, the GFs sister is home if the GF is not and pt will have someone to help at all times if needed. Pt's GF works fulltime. Goals Self-Feeding Goal Independent Grooming Goal Independent Dressing Goal Independent Toileting Goal Independent Bathing Goal Independent Toilet Transfer Goal Independent Shower Transfer Goal Independent Days to Meet Goals 20 Frequency of Treatment Frequency Of Treatment Once a Day Treatment Plan OT Treatment Plan ADL Training,Functional Mobility,Therapeutic Exercises ,Patient/Family Education, Discharge Planning Discharge Recommendations OT Discharge Recommendations Acute Rehab Other Discharge Recommendations Per CM, pt is unlikley to be able to go to acute rehab. If pt goes home pt will need: w/c (that will fit through doorways of pt's home), FWW, BSC, tub transfer bench, urinal, and 24 hour assist. Transportation Needs at Discharge Private Vehicle
--- NOTE | 2019-08-08 11:52 | DI.MRI.S_ITS ---
PROCEDURE: MR HEAD/BRAIN WO CON INDICATIONS: Severe Ataxia TECHNIQUE: Noncontrast axial T1 spin echo, axial T2 fast spin echo, sagittal and axial FLAIR, coronal T2 fast spin echo, axial gradient echo, axial diffusion and ADC through the brain. COMPARISON: None. FINDINGS: Image quality: Suboptimal related to extensive motion artifact on nearly every imaging sequence. CSF Spaces: Basal cisterns are patent. No extra-axial fluid collections. Ventricles are normal in size and shape. Brain: No intracranial masses or hemorrhage. Hoffman/white matter interface is normal. Brainstem appears normal. Diffusion-weighted images demonstrate no acute ischemic insult. No chronic ischemic insults. Normal intravascular flow voids are present. Skull and face: Calvarium has normal marrow signal. Orbits appear normal. Sinuses: Sinuses and mastoids are clear. IMPRESSION: Motion limited brain MRI without evidence of acute intracranial hemorrhage or ischemia. No parenchymal abnormalities are evident. Dictated by: Gurdeep Metcalf M.D. on 08/08/2019 at 13:15 Approved by: Gurdeep Metcalf M.D. on 08/08/2019 at 13:17
[2019-08-08] MEDS: AZITHROMYCIN 500 MG in DEXTROSE 5% IN WATER 250 ML IV (12:22)
[2019-08-08] MEDS: FOLIC ACID 1 MG TABLET PO (12:23)
[2019-08-08] MEDS: FLUTICASONE 110MCG HFA 120 PUFF INH ×2 (12:23→20:02)
[2019-08-08] MEDS: THIAMINE 100 MG TABLET PO (12:24)
[2019-08-08] MEDS: POTASSIUM CHLORIDE 20 MEQ TAB PO ×2 (12:24→16:54)
[2019-08-08] MEDS: LORazepam 0.5 MG TABLET PO ×2 (12:25→21:14)
[2019-08-08 12:34] LABS: PTT Partial Thromboplastin Tim 48 SECONDS (26.4-36.2)
--- NOTE | 2019-08-08 12:35 | CM.DANOTE ---
DCP Assessment: EMR reviewed: Patient is a 39 yr old male who was admitted to the hospital with bilateral PE and bilateral leg and hand numbness. CM/RN met with patient at the bedside and explained role. Patient was alert and oriented x3 but was distracted and easily agitated. Patient stated that he has been struggling with his B12 for the last few months and has been having difficulty with his legs and hands being numb and tingling. Patient was admitted originally for Bilateral PE and he is still having issues with flank pain but stated his pain is getting better. CM/RN discussed with patient the possibility of inpatient Rehab and patient declined stating he did want to go anywhere but home at D/C. CM?RN attempted to discuss HH with patient and his significant other but patient had become agitated and started yelling at CM and his RN. Patient was attempting at this time to open a ramírez packet for his lunch and was unable to do it and kept dropping the packet due to his hands being numb. Patient became frustrated again and yelled at his girl friend who was attempting to help him. CM and patient agreed that CM would stop back by to discuss D/C plans later after he was done eating and had a change to rest. CM met with patient again at bedside and patient was still frustrated but was not raising his voice any longer. When asked about HH services patient stated he wasn't interested in HH or any other Rehab services at this time. CM department will attempt to work with him more tomorrow on a safe D/C plan. I: Coordinated Care and medicaid Plan: D/C home with significant other. CM/RN suggested HH services as well but patient is not interested in HH at this time. Patt Ross RN Discharge Planning/Care Management CM Discharge Assessment Start: 08/08/19 12:31 Freq: Status: Active Protocol: Document 08/08/19 12:31 HS (Rec: 08/08/19 12:35 HS [email or web address]) Discharge Planning Assessment Assigned Electronic Funds Transfer Coordinator Patt Ross RN DPOA/Assigned Designee Name Fatuma Sabillon Contact Information [phone] Advance Directives? No History Provided By Patient Has Patient been admitted in last 30 No days? Prior Living Arrangements House Household Members significant other,other Type of transporation used prior to Relies on Others admit Comment patient normally would drive himself but since his legs and hand have gone numb the last three months he has not been driving Independent with ADL's No: patient needs help with ADL's at this time Is patient alert and oriented? Yes Needs Assistance With Bathing,Grooming,Meal Prep, Home Chores / Shopping Comment needs help getting to the bathroom but not in going or cleaning up after. Caregiver for Another No Patient/Family Preference Home with Home Health Barriers to Discharge Yes Comment needs help at home CM working on safe D/C plan with patient. Discharge Plan Home with Home Health Referrals Initiated Home Health If patient plan is home with home health No : Has signed face to face form been completed? Medicare Choice List Provided Yes SNF/HH Preference [facility] was contacted and clinicals sent. Whiteboard Updated in Patient Room with Yes name and ext. # of Electronic Funds Transfer Coordinator Review Status In Process Next Review Type Continued Stay Review
[2019-08-08] MEDS: HEPARIN 5,000 UNIT/ML VIAL 5000 UNIT IV ×2 (13:00→19:48)
--- NOTE | 2019-08-08 15:42 | PC.NURSE ---
Shift summary: Patient denied anxiety earlier in the shift, but later admits to having some anxiety previously that he was able to manage at home and states he is currently having a lot of anxiety with everything. Patient irritable at times, and then apologized stating you guys have all been so kind and I know your are trying to help me, but all of this has been hard. Medicated with lorazepam with noted relief. Patient's urine noted to have further increase in darkness/ tea colored around [address] Shukla notified. No new orders received. Heparin gtt infusing to Right hand IV per protocol today, with order to begin eliquis this evening and then DC heparin at 0100 08/08. Brain MRI completed. Patient worked with PT and OT today and was up in chair. Patient with continued numbness to bilateral hands as well and weakness and numbness to bilateral legs and feet continues without noted improvement. 2 assist and walker in use. High fall precaution protocol in place. Call light and urinal within reach.
--- NOTE | 2019-08-08 15:56 | PC.NURSE ---
Addendum entered by Shilpi Allen R.N. 08/08/19 23:36: Requested bowel meds from hospitalist David for this patient taking narcotics to manage pain. No stool x 3 days. Addendum entered by Shilpi Allen R.N. 08/08/19 22:40: Increasingly anxious and restless in bed. States desires shower and informed pt cannot stop heparin drip for any reason. Pt desires to get out of room in wheelchair. Staff x 2 to transfer pt from bed to wheelchair. Pt is unable to walk on own but is able to stand, pivot and sit with assistance and gait belt. Rolled around 2nd floor acute care wing twice in wheelchair with staff in attendance and pushing pt in chair. Was given ativan and oxycodone to manage c/o back and abdominal pain as well as restlessness and anxiety. Warm blanket applied to right flank/back when returned to bed. Pt constantly fussing with iv lines and tape covering iv sites x 2. Pt is able to position self independently in bed. S.O. now arrives and pt much calmer and relaxed. Addendum entered by Shilpi Allen R.N. 08/08/19 19:58: PTT reported as 46. Per protocol, 5000 unit bolus administered with increase in dose to 1800 units/hr with rate increased to 36 cc/hr. Pt was provided with explanation of this action. Addendum entered by Shilpi Allen R.N. 08/08/19 19:04: Pt spontaneously expectorates scant amount of sputum mixed with bright red blood. Informed pt to alert staff if this event occurs again and pt verbalizes understanding and agreement. Addendum entered by Shilpi Allen R.N. 08/08/19 16:10: Heparin continuous infusion continues to right hand iv site without difficulty @ 32 cc/hr. Original Note: Pt awake and alert lying in bed. CIWA=0 at this time. Denies feelings of anxiety. Is drowsy and drifts off easily. Occasional jerking motions with onset of sleep observed and pt reports this does awaken pt. Tele in place. Continuous pulse oximeter discontinued as per R.T. Bed alarm in place. Pt is able to manipulate urinal and declines this publicity writer's offer for assistance. Reports abdomen feels less distended than last evening. Vague reponse by pt when this publicity writer inquired re pt's back pain. Will allow for rest and pt was encouraged to call for needs. Pt reports feels able to rest.
--- NOTE | 2019-08-08 16:03 | PT.IIE ---
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 Mobility and Gait Pt was IND in all mobility ~2 months ago. Activities of Daily Living and IADL's Pt was IND in all ADLs ~2 months ago Social History Household Members significant other,other Living Arrangements House Number of Floors (Floors) One Floor Number of Stairs To Enter/Railing? level entry but 1 step up from the bedroom to the rest of the house. Home Environment Standard Height Toilet,Tub/ Shower Home Equipment Straight Cane Employment Status Unknown Additional Social History Comment Per pt's GF, pt was working up till July 15 M2 PT-IP Current Condition Start: 08/08/19 08:42 Freq: NEEDED Status: Active Protocol: Document 08/08/19 11:20 AW (Rec: 08/08/19 16:03 AW [id number]) Physical Therapy Current Condition Current Condition Evaluation Date 08/08/19 Treatment Diagnosis B pulm emboli, LLE DVT, generalized weakness; difficulty in walking Onset Date 08/07/19 M3 PT-IP Subjective Start: 08/08/19 08:42 Freq: NEEDED Status: Active Protocol: Document 08/08/19 11:20 AW (Rec: 08/08/19 16:03 AW [id number]) Subjective Physical Therapy Visit Type Type Initial Evaluation Visit Start Time 10:39 Visit Stop Time 11:15 Total Visit Minutes 36 Notes Discussed pt case with hospitalist who advised proceeding with mobility. IV heparin was started >24 hours ago and pt is adequately anticoagulated. Co-evaluation with OT. Physical Therapy Visit Comments Patient Comments I feel ganged up on. Patient Goals Pt states he intends to go home. Therapy Pain Assessment Pain When Pain Assessed During Mobility Pain Present Pain Present Pain Reported Location Right Flank Scale Used not quantified Description Aching,Spasm,With Movement Pain Behaviors Calling Out,Facial Grimacing, Guarding,Holding Area, Restlessness,Wincing Pain Management Techniques Distraction,Timing of Activity with Medications M4 PT-IP Mobility and Gait Start: 08/08/19 08:42 Freq: NEEDED Status: Active Protocol: Document 08/08/19 11:20 AW (Rec: 08/08/19 16:03 AW [id number]) PT-Bed Mobility Assessment Supine to Sit Supine to Sit Contact Guard Assistance PT-Transfer Assessment Sit to and From Stand Sit to and from Stand Minimal Assistance,2 Person Assistance,Use of Upper Extremities Equipment Transfer Assistive Device Gait Belt,Front Wheeled Walker Orthotic/Prosthetic Devices or Brace: No Transfers Transfer Destination Chair Transfer Technique Stand Step Pivot Transfer Ability Level of Assist Minimal Assistance,2 Person Assistance,Use of Upper Extremities Comments Mobility Comments Pt reclined in bed upon PT and OT arrival. He required encouragement to mobilize and did best when allowed extra time to work through his bed mobility strategy. He completed supine to sit from flattened bed CGA, stopping multiple times due to flank pain. In sitting, pt was able to sit with and without UE support for strength and coordination testing. Pt complained that he was feeling ganged up on and crowded. PT and OT stepped back to give him some room and then proceeded with sit to stand once pt was feeling more comfortable. He stood using FWW and min A x 2, requiring cues for quad activation and hand placement on FWW. Pt then step pivot transferred to the chair with FWW, requiring min A x 2 and cues for safe walker management and to shift weight for LE advancement. Pt sat in the chair requiring min A x 1 due to poor eccentric control of descent. Pt was positioned in the chair with call light and all needs within reach. Pt agreed to use the call light for all mobility needs. Gait Assessment Gait Gait Assistance Required: Minimum Assistance,2 Person Assist Distance (Feet) 4 Assistive Devices Assistive Device Gait Belt,Front Wheeled Walker Orthotic/Prosthetic Devices or Brace: No Gait Deviations General Gait Pattern Antalgic,Ataxic,Decreased Stride Length,Decreased Feet Clearance,Flexed Trunk Factors Limiting Gait Function Factors Limiting Gait Function Abnormal Tonal Influences, Decreased Activity Tolerance, Decreased Sensation,Decreased Strength,Incoordination,Pain, Poor Balance,Poor Safety Awareness Comments Gait Comments Pt required min A x 2 for transfer to chair with FWW. Gait was ataxic with poor ability to shift weight for LE advancement, even with tactile and verbal cues for same. Lack of sensation and proprioception interfered with pt's motor planning. Stair Climbing Assessment Comments Stair Climbing Comments Not assessed. PT-Balance Assessment Sitting Balance and Reactions Static Sitting Balance Ability Good Dynamic Sitting Balance Ability Fair Standing Balance and Reactions Static Standing Balance Ability Fair Dynamic Standing Balance Ability Poor Device Used FWW M5 PT-IP Objective Assessments Start: 08/08/19 08:42 Freq: NEEDED Status: Active Protocol: Document 08/08/19 11:20 AW (Rec: 08/08/19 16:03 AW [id number]) Orientation Orientation/Cognition Level of Alertness Alert Orientation Name,Day of Week,Place, Situation Safety Awareness Decreased Safety Awareness Comments Speech content was appropriate but speech production was labored. Gross Range of Motion Lower Extremity ROM Assessment Within Functional Limits Strength Lower Extremity Strength Assessment Bilaterally Impaired Comments Strength Comments Grossly 3+/5 and highly fatigable. Coordination Assessment Gross Coordination Gross Coordination Impaired Assessment Finger to Nose Test Minimal Impairment Coordination Comments Missed targets on finger to nose ~2 cm bilaterally. Sensation Assessment Sensation Gross Sensation WNL,Left UE Impaired,Right LE Impaired,Left LE Impaired Light Touch Impaired Proprioception (Position) Impaired Sensation Description Numbness,Heaviness Comments Sensation Comments Pt presents with BUE and BLE sensation disturbance - greater distally. Muscle Tone Muscle Tone WNL No Muscle Tone Location Bilateral Lower Extremity Type of Tone Hypertonicity Severity of Tone Mild Manifistation of Tone Ataxia Comments Muscle Tone Comments Unable to properly assess clonus due to increased tone bilaterally. M6 PT-IP Treatment Start: 08/08/19 08:42 Freq: NEEDED Status: Active Protocol: Document 08/08/19 11:20 AW (Rec: 08/08/19 16:03 AW [id number]) Physical Therapy Treatment Education Education Provided Safety Other Treatments Other Treatment Performed Provided education on role of PT and plan of care. Also discussed discharge options including possibility of acute rehab if pt would be willing. M7 PT-IP Assessment and Plan Start: 08/08/19 08:42 Freq: NEEDED Status: Active Protocol: Document 08/08/19 11:20 AW (Rec: 08/08/19 16:03 AW [id number]) PT Summary Assessment and Plan Potential Rehabilitation Potential Fair Status of Condition at Evaluation Evolving Summary Impairments Pain,Strength,Balance, Coordination,Sensation,Tone, Bed Mobility,Transfers,Gait, Activity Tolerance Assessment Summary Anand is a 39 yo man seen for PT evaluation after admittance with bibasilar PE and LLE DVT . Hospitalist advised proceeding with mobility as pt is >24 hours since first dose IV heparin. As recently as two months ago, pt was independent with all functinal mobility and ADL's. 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 He presents with sensation disturbances and strength impairments leading to unsafe ataxic gait and decreased independence with all mobility. He is unsafe to discharge to the home environment where he lives with his girlfriend who works full-time. His SO's sister apparently also resides at the home and is available to assist if needed while pt's girlfriend is at work. Ideally , pt would benefit from acute rehab, but CM advises that his insurance makes that unlikely . Pt will benefit from continued acute and subacute PT. If pt discharges home, he will require PT. Goals Bed Mobility Goal Independent Transfer Goal Independent Gait Goal Standby Assistance,Front Wheel Walker Gait Distance 100 Other Goals - up/down single step with unilateral rail SBA Days to Meet Goals 20 Frequency of Treatment Frequency Of Treatment Twice a Day Treatment Plan Physical Therapy Treatment Plan Bed Mobility Training,Transfer Training,Gait Training, Therapeutic Exercise,Balance Retraining,Discharge Planning, Neuromuscular Re-ed, Coordination Retraining Other Recommendations and Next Treatment transfers, gait with FWW or Focus LRAD Recommendations To Nursing Amount of Assist Needed 2 Person Assist Discharge Recommendations PT Discharge Recommendations Acute Rehab Other Discharge Recommendations Per , pt is unlikely to be able to go to acute rehab. If going home, pt will require FWW, BSC, tub transfer bench, 24-hour assist with all mobility. Pt may also need manual w/c depending on progress Transportation Needs at Discharge Private Vehicle
[2019-08-08 19:28] LABS: PTT Partial Thromboplastin Tim 46 SECONDS (26.4-36.2)
[2019-08-08] MEDS: APIXABAN 5 MG TABLET 10 MG PO (20:01)
[2019-08-09] VITALS (7 sets, daily range): BP systolic 134–153; BP diastolic 69–94; PULSE 62–86; RESP 16–20; TEMP 36.4–38.2; O2SAT 94–96
[2019-08-09] MEDS: ACETAMINOPHEN 325 MG TABLET 650 MG PO (00:13)
[2019-08-09] MEDS: OXYCODONE IR 10 MG TABLET PO ×3 (00:57→14:45)
[2019-08-09] MEDS: DEXTROSE 5%-0.9% NS 1,000 ML 100 ML IV (00:58)
--- NOTE | 2019-08-09 02:48 | PC.NURSE ---
Addendum entered by Charlene Vilchis R.N. 08/09/19 07:00: Patient had to be shook in order to get him to wake up for lab to draw blood. States he needs pain meds so medicated with 5mg Oxycodone but shortly after patient stating pain is 7/10 and requested/medicated with additional 5mg of Oxycodone. Original Note: Patient is alert and oriented. Breath sounds diminished but CTA with RA sat of 95%. HRR with telemetry reading of SR. BP elevated at 143/80. Denies nausea. BT present; has not had BM since 08/04 and PLATEN PRESS OPERATOR was made aware on previous shift. Is voiding per urinal; denies dysuria, frequency or urgency. Is able to move himself in bed. Scabbed abrasions noted on right upper arm, left side of back and left anterior lower leg. Has numbness in bilateral upper/lower extremities making it difficult to walk; did walk with walker and 2 assists into bathroom to have shower. Complains of pain in right flank radiating around to abdomen; medicated with Oxycodone. Earlier had elevated temp of 100.8 which decreased to 97.5 after receiving Tylenol. CIWA score is 0 although is having some mild anxiety. Significant other, Valentine, rooming in. Fall risk score is high and bed alarm is activated.
[2019-08-09] MEDS: LORazepam 0.5 MG TABLET PO ×2 (03:11→11:31)
[2019-08-09] MEDS: OXYCODONE IR 5 MG TABLET PO (06:56)
[2019-08-09] MEDS: FLUTICASONE 110MCG HFA 120 PUFF INH (07:07)
[2019-08-09 07:09] LABS: Add Manual Diff / Slide Review NO; Basophils Absolute Auto 0 /uL (0-100); Basophils Percent Auto 0.7 % (0-2); Eosinophils Absolute Auto 300 /uL (0-450); Eosinophils Percent Auto 4.2 % (2-4); Hematocrit 39.5 % (41-53); Hemoglobin 14.1 g/dL (13.5-17.5); Lymphocytes Absolute Auto 1700 /uL (1100-4500); Lymphocytes Percent Auto 26.9 % (25-40); Mean Corpuscular HGB Conc 35.5 % (30-36); Mean Corpuscular Hemoglobin 36.4 PG (26-34); Mean Corpuscular Volume 102.4 fL (80-100); Monocytes Absolute Auto 600 /uL (0-900); Monocytes Percent Auto 9.9 % (3-14); Neutrophils Absolute Auto 3700 /uL (1500-7000); Neutrophils Percent Auto 58.3 % (50-75); Platelet Count 308 X10^3/uL (150-400); Red Blood Cell Count 3.86 X10^6/uL (4.5-5.9); Red Cell Distribution Width 13.8 % (11.6-14.8); White Blood Cell Count 6.4 X10^3/uL (4.5-11.0)
[2019-08-09 07:20] LABS: Alanine Aminotransferase 162 IU/L (<50); Albumin 3.4 g/dL (3.5-5.0); Albumin Globulin Ratio 1.1 (1.0-2.8); Alkaline Phosphatase 191 U/L (38-126); Aspartate Aminotransferase 153 IU/L (17-59); Bilirubin Total 1.5 mg/dL (0.2-1.3); Bilirubin Unconjugated 0.8 mg/dL (0.0-1.1); HEMOLYSIS < 15 (0-50); Magnesium 2.1 mg/dL (1.6-2.3); Total Protein 6.4 g/dL (6.3-8.2)
[2019-08-09 07:22] LABS: Alanine Aminotransferase 159 IU/L (<50); Albumin 3.3 g/dL (3.5-5.0); Albumin Globulin Ratio 1.1 (1.0-2.8); Alkaline Phosphatase 193 U/L (38-126); Aspartate Aminotransferase 139 IU/L (17-59); Bilirubin Total 1.7 mg/dL (0.2-1.3); Blood Urea Nitrogen 7 mg/dL (9-20); Calcium 9.2 mg/dL (8.4-10.2); Carbon Dioxide 27 mmol/L (22-32); Chloride 105 mmol/L (98-107); Estimated Glomerular Filt Rate > 60.0 mL/min (>60); Globulin 3.1 g/dL (1.7-4.1); Glucose 109 mg/dL (70-100); HEMOLYSIS < 15 (0-50); Potassium 3.4 mmol/L (3.4-5.1); Sodium 141 mmol/L (137-145); Total Protein 6.4 g/dL (6.3-8.2)
[2019-08-09] MEDS: THIAMINE 100 MG TABLET PO (10:15)
[2019-08-09] MEDS: hydroCHLOROthiazide 25 MG TABLET PO (10:16)
[2019-08-09] MEDS: CYANOCOBALAMIN (VITAMIN B-12) 500 MCG TABLET 1000 MCG PO (10:16)
[2019-08-09] MEDS: APIXABAN 5 MG TABLET 10 MG PO (10:16)
[2019-08-09] MEDS: FOLIC ACID 1 MG TABLET PO (10:16)
[2019-08-09] MEDS: POTASSIUM CHLORIDE 20 MEQ TAB PO (10:16)
[2019-08-09] MEDS: lisinopriL 20 MG TABLET PO (10:16)
[2019-08-09] MEDS: CEFTRIAXONE 1 GM/50 ML FROZ.PIGGY IV (10:55)
[2019-08-09] MEDS: AZITHROMYCIN 500 MG in DEXTROSE 5% IN WATER 250 ML IV (11:33)
--- NOTE | 2019-08-09 12:06 | PT.IPTN ---
Current Diagnoses Other pulmonary embolism without acute cor pulmonale (08/07/19) Physical Therapy Treatment Note M2 PT-IP Current Condition Start: 08/08/19 08:42 Freq: NEEDED Status: Active Protocol: Document 08/08/19 11:20 AW (Rec: 08/08/19 16:03 AW [id number]) Physical Therapy Current Condition Current Condition Evaluation Date 08/08/19 Treatment Diagnosis B pulm emboli, LLE DVT, generalized weakness; difficulty in walking Onset Date 08/07/19 M3 PT-IP Subjective Start: 08/08/19 08:42 Freq: NEEDED Status: Active Protocol: Document 08/09/19 11:51 CLB (Rec: 08/09/19 12:59 CLB [id number]) Subjective Physical Therapy Visit Type Type Treatment Note Visit Start Time 11:51 Visit Stop Time 12:06 Total Visit Minutes 15 Notes Co-treat with OT Number of LABOR RELATIONS SPECIALIST Visits 1 Physical Therapy Visit Comments Patient Comments Pt willing to participate with therapy team. M4 PT-IP Mobility and Gait Start: 08/08/19 08:42 Freq: NEEDED Status: Active Protocol: Document 08/09/19 11:51 CLB (Rec: 08/09/19 12:59 CLB [id number]) PT-Bed Mobility Assessment Supine to Sit Supine to Sit Standby Assistance PT-Transfer Assessment Sit to and From Stand Sit to and from Stand Contact Guard Assistance,1 Person Assistance,Use of Upper Extremities Equipment Transfer Assistive Device Gait Belt,Front Wheeled Walker Orthotic/Prosthetic Devices or Brace: No Transfers Transfer Destination Chair,Toilet Transfer Technique walked with FWW Transfer Ability Level of Assist Minimal Assistance,1 Person Assistance,Use of Upper Extremities Comments Mobility Comments Pt in bed and agreed to get up and walk. Pt sat up in bed and put on shirt independently before scooting to the EOB. Pt stood with CGA with use of walker before LABOR RELATIONS SPECIALIST was able to give cues for hand placement. Pt ambulated in callahan Min A with FWW and assist of second person to manage IV pole. Pt required cues for pacing. Pt has ataxic gait, pt takes large steps that can be wide and at times very narrow clipping toes on heel of opposite foot. Pt required cues for chair approach and keeping walker close for safety. Pt sat in chair for lunch. Pt left in chair with call light, SO and OT present. Gait Assessment Gait Gait Assistance Required: Minimum Assistance,1 Person Assist Distance (Feet) 200 Assistive Devices Assistive Device Gait Belt,Front Wheeled Walker Orthotic/Prosthetic Devices or Brace: No Gait Deviations General Gait Pattern Antalgic,Ataxic,Decreased Stride Length,Decreased Feet Clearance,Flexed Trunk Factors Limiting Gait Function Factors Limiting Gait Function Abnormal Tonal Influences, Decreased Activity Tolerance, Decreased Sensation,Decreased Strength,Incoordination,Pain, Poor Balance,Poor Safety Awareness Comments Gait Comments Pt required Min A x1 and a second person for IV pole management. Pt is impulsive and requires Min A for safety. Stair Climbing Assessment Comments Stair Climbing Comments Not assessed. PT-Balance Assessment Sitting Balance and Reactions Static Sitting Balance Ability Good Dynamic Sitting Balance Ability Fair Standing Balance and Reactions Static Standing Balance Ability Fair Dynamic Standing Balance Ability Poor Device Used FWW M5 PT-IP Objective Assessments Start: 08/08/19 08:42 Freq: NEEDED Status: Active Protocol: Document 08/08/19 11:20 AW (Rec: 08/08/19 16:03 AW [id number]) Orientation Orientation/Cognition Level of Alertness Alert Orientation Name,Day of Week,Place, Situation Safety Awareness Decreased Safety Awareness Comments Speech content was appropriate but speech production was labored. Gross Range of Motion Lower Extremity ROM Assessment Within Functional Limits Strength Lower Extremity Strength Assessment Bilaterally Impaired Comments Strength Comments Grossly 3+/5 and highly fatigable. Coordination Assessment Gross Coordination Gross Coordination Impaired Assessment Finger to Nose Test Minimal Impairment Coordination Comments Missed targets on finger to nose ~2 cm bilaterally. Sensation Assessment Sensation Gross Sensation WNL,Left UE Impaired,Right LE Impaired,Left LE Impaired Light Touch Impaired Proprioception (Position) Impaired Sensation Description Numbness,Heaviness Comments Sensation Comments Pt presents with BUE and BLE sensation disturbance - greater distally. Muscle Tone Muscle Tone WNL No Muscle Tone Location Bilateral Lower Extremity Type of Tone Hypertonicity Severity of Tone Mild Manifistation of Tone Ataxia Comments Muscle Tone Comments Unable to properly assess clonus due to increased tone bilaterally. M6 PT-IP Treatment Start: 08/08/19 08:42 Freq: NEEDED Status: Active Protocol: Document 08/08/19 11:20 AW (Rec: 08/08/19 16:03 AW [id number]) Physical Therapy Treatment Education Education Provided Safety Other Treatments Other Treatment Performed Provided education on role of PT and plan of care. Also discussed discharge options including possibility of acute rehab if pt would be willing. M7 PT-IP Assessment and Plan Start: 08/08/19 08:42 Freq: NEEDED Status: Active Protocol: Document 08/09/19 11:51 CLB (Rec: 08/09/19 12:59 CLB [id number]) PT Summary Assessment and Plan Potential Rehabilitation Potential Fair Status of Condition at Evaluation Evolving Summary Impairments Pain,Strength,Balance, Coordination,Sensation,Tone, Bed Mobility,Transfers,Gait, Activity Tolerance Assessment Summary Pt willing to get up and ambulate with PT and OT. Pt improved with bed mobility and gait. Pt continues to require assist when he is up for transfers and ambulation for safety due to his ataxic gait and impulsiveness. Pt will benefit from continued acute and subacute PT. If pt discharges home, he will require PT. Goals Bed Mobility Goal Independent Transfer Goal Independent Gait Goal Standby Assistance,Front Wheel Walker Gait Distance 100 Other Goals - up/down single step with unilateral rail SBA Days to Meet Goals 20 Treatment Plan Physical Therapy Treatment Plan Bed Mobility Training,Transfer Training,Gait Training, Therapeutic Exercise,Balance Retraining,Discharge Planning, Neuromuscular Re-ed, Coordination Retraining Other Recommendations and Next Treatment transfers, gait with 4WW or Focus LRAD Recommendations To Nursing Amount of Assist Needed 2 Person Assist Discharge Recommendations PT Discharge Recommendations Acute Rehab Other Discharge Recommendations Per CM, pt is unlikely to be able to go to acute rehab. If going home, pt will require FWW, BSC, tub transfer bench, 24-hour assist with all mobility. Pt may also need manual w/c depending on progress Transportation Needs at Discharge Private Vehicle
--- NOTE | 2019-08-09 12:15 | OT.IP.TRT ---
Current Diagnoses Other pulmonary embolism without acute cor pulmonale (08/07/19) Occupational Therapy Treatment Note M2 OT-IP Current Condition Start: 08/08/19 14:02 Freq: Status: Active Protocol: Document 08/08/19 14:03 CGR (Rec: 08/08/19 14:32 CGR [email or web address]) Occupational Therapy Current Condition Current Condition Evaluation Date 08/08/19 Treatment Diagnosis Generalized weakness, B pulmonary emboli, LLE DVT Diagnosis Onset Date 08/07/19 M3 OT- IP Subjective and Pain Start: 08/08/19 14:02 Freq: Status: Active Protocol: Document 08/09/19 12:40 CGR (Rec: 08/09/19 12:57 CGR [email or web address]) OT- Subjective Occupational Therapy Visit Type Type Progress Note Visit Start Time 11:50 Visit Stop Time 12:15 Total Visit Minutes 25 Notes Partial co-treat with P.T. OT Pain Assessment Pain When Pain Assessed At Rest Pain Present Pain Present Denied Pain M4 OT- IP ADL's Start: 08/08/19 14:02 Freq: Status: Active Protocol: Document 08/09/19 12:40 CGR (Rec: 08/09/19 12:57 CGR [email or web address]) OT [id number] General Evaluation Self-Feeding Ability Independent Comments OT Self-Feeding Comments Pt able to open individual plastic ramírez and mustard containers using hands and teeth. OT ADL-Grooming Comments OT Grooming Comments Pt declined to perform before lunch OT ADL-Oral Care Comments Oral Care Comments Pt declined to perform before lunch OT ADL-Dressing General Eval Upper Body Dressing Ability Independent Areas Needing Assistance Pull-Over Shirt Comments OT Dressing Comments Pt donned shirt seated EOB OT ADL-Toileting General Evaluation Toileting Ability Independent Comments OT Toileting Comments Pt needed VC for proper use of GB vs walker but then declined to perform clothing management with therapist present. Pt left standing at toilet and pt states he performed clothing management and urinated seated on toielt. OT ADL-Bathing Comments OT Bathing Comments Not performed in this session. M5 OT- IP IADL's Start: 08/08/19 14:02 Freq: Status: Active Protocol: Document 08/08/19 14:03 CGR (Rec: 08/08/19 14:32 CGR [email or web address]) OT-Instrumental Activities of Daily Living Deficits IADL Deficits Identified Deficits Home Safety Awareness Awareness of Need for Assistance at Home Decreased Awareness Ability to Problem Solve Emergency Able to Problem Solve Situations M6 OT- IP Functional Cognition Start: 08/08/19 14:02 Freq: Status: Active Protocol: Document 08/08/19 14:03 CGR (Rec: 08/08/19 14:32 CGR [email or web address]) Cognitive Factors Limiting Selfcare Function Cognitive Ability Level of Alertness Alert,Confusional State Patient Orientation Name,Age,Birthday,Month,Date, Year,Day of Week,Place, Situation Attention Span Ability Capable of Focused Attention, Unable to Sustain Attention Ability to Follow Commands Able to Follow One Step Commands with Increased Time, Able to Follow One Step Commands with Repetition Cognitive Tests SLUMS Pt participated in SLUMS with a score of 25/30. Unsure of [facility] but this is likley within normal limits for this patient . OT- Vision and Hearing OT- Hearing Assessment OT- Hearing Assessment WFL OT- Vision Assessment Visual Acuity WFL Vision Assessment Comments Pt had difficulty with all occular pursuits. M7 OT- IP Mobility and Balance Start: 08/08/19 14:02 Freq: Status: Active Protocol: Document 08/09/19 12:40 CGR (Rec: 08/09/19 12:57 CGR [email or web address]) OT- Bed Mobility Assessment Supine to Sit Supine to Sit Assist Standby Assistance Scooting Scooting to Edge of Bed Standby Assistance OT-Transfer Assessment Sit to and From Stand Sit to and from Stand Contact Guard Assistance, Minimal Assistance Transfers Transfer Ability Contact Guard Assistance, Minimal Assistance Technique Transfer Destination Bed,Chair,Toilet Transfer Technique Stand Step Pivot Devices Transfer Assistive Devices Gait Belt,Front Wheeled Walker OT- Gait Assessment Gait Gait Assistance Required: Contact Guard Assist,Minimum Assistance Assistive Devices Assistive Device Gait Belt,Front Wheeled Walker Comments Gait Ability Comments Pt able to ambulate around the nurses station with min to CGA but poor safety. OT- Balance Assessment Sitting Balance and Reactions Static Sitting Balance Ability Good Dynamic Sitting Balance Ability Fair Standing Balance and Reactions Static Standing Balance Ability Poor Dynamic Standing Balance Ability Poor M8 OT- IP Objective Assessments Start: 08/08/19 14:02 Freq: Status: Active Protocol: Document 08/08/19 14:03 CGR (Rec: 08/08/19 14:32 CGR [email or web address]) OT Gross Range of Motion Upper Extremity Range of Motion Assessment Within Functional Limits OT Strength Comments Strength Comments Grossly 3+/5 throughout. OT- Coordination Assessment Upper Extremity Finger to Nose Test Within Functional Limits Finger Tapping Test Within Functional Limits OT-Muscle Tone Assessment Muscle Tone WNL No Comments Muscle Tone Comments poor consistancy of contrations OT Sensation Assessment Location Upper Extremity Light Touch Absent Deep Pressure Absent Proprioception (Position) Absent Tactile Localization Absent Sensation Description Numbness Edema Edema Absent M9 OT- IP Assessment and Plan Start: 08/08/19 14:02 Freq: Status: Active Protocol: Document 08/09/19 12:40 CGR (Rec: 08/09/19 12:57 CGR [email or web address]) OT Summary Assessment and Plan Potential Rehabilitation Potential Good Analytic Complexity at Evaluation High Summary OT Impairments Pain,Strength,Balance, Coordination,Sensation,Tone, Functional Cognition, Functional Mobility,Self- Feeding,Grooming,Dressing, Toileting,Bathing,Toilet Transfers,Shower Transfers, Activity Tolerance Progress Towards Goals Slow Progress due to Pain,Slow Progress due to Medical Issues,Slow Progress due to Activity Tolerance Assessment Summary Pt displays significant improvement in his abilities on this date. Pt's mobility has improved but pt is impulsive and needs VC for proper use of DME. Pt will continue to benefit from OT services. Per pt's GF present at time of session, pt is mobilizing at his recent baseline. Goals Self-Feeding Goal Independent Grooming Goal Independent Dressing Goal Independent Toileting Goal Independent Bathing Goal Independent Toilet Transfer Goal Independent Shower Transfer Goal Independent Days to Meet Goals 19 Frequency of Treatment Frequency Of Treatment Once a Day Treatment Plan OT Treatment Plan ADL Training,Functional Mobility,Therapeutic Exercises ,Patient/Family Education, Discharge Planning Discharge Recommendations OT Discharge Recommendations Acute Rehab Other Discharge Recommendations Per CM, pt is unlikley to be able to go to acute rehab. If pt goes home pt will need: FWW or 4WW per P.T. recommendation, tub transfer bench, urinal, and 24 hour assist. Transportation Needs at Discharge Private Vehicle
--- NOTE | 2019-08-09 15:14 | PT.IPTN ---
Current Diagnoses Other pulmonary embolism without acute cor pulmonale (08/07/19) Physical Therapy Treatment Note M2 PT-IP Current Condition Start: 08/08/19 08:42 Freq: NEEDED Status: Active Protocol: Document 08/08/19 11:20 AW (Rec: 08/08/19 16:03 AW [id number]) Physical Therapy Current Condition Current Condition Evaluation Date 08/08/19 Treatment Diagnosis B pulm emboli, LLE DVT, generalized weakness; difficulty in walking Onset Date 08/07/19 M3 PT-IP Subjective Start: 08/08/19 08:42 Freq: NEEDED Status: Active Protocol: Document 08/09/19 14:58 CLB (Rec: 08/09/19 15:27 CLB [id number]) Subjective Physical Therapy Visit Type Type Treatment Note Visit Start Time 14:58 Visit Stop Time 15:14 Total Visit Minutes 16 Physical Therapy Visit Comments Patient Comments Pt willing to participate with therapy team. Therapy Pain Assessment Pain When Pain Assessed During Mobility Pain Present Pain Present Pain Reported Location Right Flank Scale Used not quantified Description Aching,Spasm,With Movement Pain Behaviors Facial Grimacing,Moaning Pain Management Techniques Modification of Treatment, Timing of Activity with Medications M4 PT-IP Mobility and Gait Start: 08/08/19 08:42 Freq: NEEDED Status: Active Protocol: Document 08/09/19 14:58 CLB (Rec: 08/09/19 15:27 CLB [id number]) PT-Bed Mobility Assessment Supine to Sit Supine to Sit Standby Assistance PT-Transfer Assessment Sit to and From Stand Sit to and from Stand Contact Guard Assistance,1 Person Assistance,Use of Upper Extremities Equipment Transfer Assistive Device Gait Belt,Front Wheeled Walker Orthotic/Prosthetic Devices or Brace: No Transfers Transfer Destination Bed Transfer Technique walked with FWW Transfer Ability Level of Assist Contact Guard Assistance,1 Person Assistance,Use of Upper Extremities Comments Mobility Comments Pt agreeable to ambulate to therapy stairs for stair training. Pt stood SBA and ambulated ~50ft requiring CGA- Min A with FWW. Pt climbed stairs using one rail CGA. Pt then ambulated ~50ft back to room. Pt respectfully refused further ambulation. Pt performed sit-supine with SBA. Gait Assessment Gait Gait Assistance Required: Minimum Assistance,1 Person Assist Distance (Feet) 100 Assistive Devices Assistive Device Gait Belt,Front Wheeled Walker Orthotic/Prosthetic Devices or Brace: No Gait Deviations General Gait Pattern Antalgic,Ataxic,Decreased Stride Length,Decreased Feet Clearance,Flexed Trunk Factors Limiting Gait Function Factors Limiting Gait Function Abnormal Tonal Influences, Decreased Activity Tolerance, Decreased Sensation,Decreased Strength,Incoordination,Pain, Poor Balance,Poor Safety Awareness Comments Gait Comments Pt requires CGA-Min A for gait w/FWW. Stair Climbing Assessment Evaluation Level of Assist On Stairs Contact Guard Assistance,1 Person Assistance Devices Stair Climbing Assistive Devices Left Railing Technique/Endurance Stair Climbing Direction Ascend and Descend Stair Climbing Technique Step Over Step,Step to Step Number of Steps Climbed 3 Stair Climbing Set # Repetitions (reps) 1 Comments Stair Climbing Comments Pt required CGA for stair climbing and use of one rail. Pt used step over step ascending and step to step descending. PT-Balance Assessment Sitting Balance and Reactions Static Sitting Balance Ability Good Dynamic Sitting Balance Ability Fair Standing Balance and Reactions Static Standing Balance Ability Fair Dynamic Standing Balance Ability Poor Device Used FWW M5 PT-IP Objective Assessments Start: 08/08/19 08:42 Freq: NEEDED Status: Active Protocol: Document 08/08/19 11:20 AW (Rec: 08/08/19 16:03 AW [id number]) Orientation Orientation/Cognition Level of Alertness Alert Orientation Name,Day of Week,Place, Situation Safety Awareness Decreased Safety Awareness Comments Speech content was appropriate but speech production was labored. Gross Range of Motion Lower Extremity ROM Assessment Within Functional Limits Strength Lower Extremity Strength Assessment Bilaterally Impaired Comments Strength Comments Grossly 3+/5 and highly fatigable. Coordination Assessment Gross Coordination Gross Coordination Impaired Assessment Finger to Nose Test Minimal Impairment Coordination Comments Missed targets on finger to nose ~2 cm bilaterally. Sensation Assessment Sensation Gross Sensation WNL,Left UE Impaired,Right LE Impaired,Left LE Impaired Light Touch Impaired Proprioception (Position) Impaired Sensation Description Numbness,Heaviness Comments Sensation Comments Pt presents with BUE and BLE sensation disturbance - greater distally. Muscle Tone Muscle Tone WNL No Muscle Tone Location Bilateral Lower Extremity Type of Tone Hypertonicity Severity of Tone Mild Manifistation of Tone Ataxia Comments Muscle Tone Comments Unable to properly assess clonus due to increased tone bilaterally. M6 PT-IP Treatment Start: 08/08/19 08:42 Freq: NEEDED Status: Active Protocol: Document 08/08/19 11:20 AW (Rec: 08/08/19 16:03 AW [id number]) Physical Therapy Treatment Education Education Provided Safety Other Treatments Other Treatment Performed Provided education on role of PT and plan of care. Also discussed discharge options including possibility of acute rehab if pt would be willing. M7 PT-IP Assessment and Plan Start: 08/08/19 08:42 Freq: NEEDED Status: Active Protocol: Document 08/09/19 14:58 CLB (Rec: 08/09/19 15:27 CLB [id number]) PT Summary Assessment and Plan Potential Rehabilitation Potential Fair Status of Condition at Evaluation Evolving Summary Impairments Pain,Strength,Balance, Coordination,Sensation,Tone, Bed Mobility,Transfers,Gait, Activity Tolerance Assessment Summary Pt continues to require SBA for sit<>Stand and CGA-Min A for ambulation with FWW. Pt will benefit from OP PT. Goals Bed Mobility Goal Independent Transfer Goal Independent Gait Goal Standby Assistance,Front Wheel Walker Gait Distance 100 Other Goals - up/down single step with unilateral rail SBA Days to Meet Goals 20 Frequency of Treatment Frequency Of Treatment Twice a Day Treatment Plan Physical Therapy Treatment Plan Bed Mobility Training,Transfer Training,Gait Training, Therapeutic Exercise,Balance Retraining,Discharge Planning, Neuromuscular Re-ed, Coordination Retraining Recommendations To Nursing Amount of Assist Needed 2 Person Assist Discharge Recommendations PT Discharge Recommendations Outpatient PT Other Discharge Recommendations Per CM, pt is unlikely to be able to go to acute rehab. If going home, pt will require FWW, BSC, tub transfer bench, 24-hour assist with all mobility. Pt may also need manual w/c depending on progress Transportation Needs at Discharge Private Vehicle
--- NOTE | 2019-08-09 15:26 | PM.DS.1 ---
History of Present Illness History of Present Illness Date Patient Seen: 08/09/19 Time Patient Seen: 15:26 Chief complaint: R Chest to R Flank Pain Narrative: As per Dr. Shukla, This is a 39-year-old male with abdominal pain who on presentation to the emergency department was found to have bilateral pulmonary emboli. He originally presented to the emergency department yesterday with right upper quadrant pain and had a negative abdominal ultrasound done. He came back today with ongoing abdominal pain along with pleuritis so a CT of the abdomen and a CTA of the chest were done showing bilateral basilar pulmonary embolisms. In the last 2 months he has developed rapid onset of bilateral upper and lower extremity numbness that was found to be caused by a vitamin B12 deficiency. He reports that Dr. Naqvi in [place] found a B12 level of 90 in mid July and started him on 1000 mcg of B12 since then. He has not noticed any improvement. He is stumbling and unable to walk normally due to the lack of proprioception. He eats plenty of B12 containing meat but does drink 2 tall beers per day and has been on omeprazole for many years to treat acid reflux. 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 He developed a fever of 101 on arrival in the emergency department but was afebrile at home. He did have some chills and sweats. His presenting sodium of 133 and potassium of 3.4 are related to the chronic hydrochlorothiazide use. Discharge Providers Provider Date of admission: 08/07/19 10:43 Discharge Date: 08/09/19 Consults: 08/07/19 11:58 Consult to Occupational Therapy Evaluate & Treat Comment: Physician Instructions: Evaluate and treat 08/07/19 11:59 Consult to Physical Therapy Evaluate & Treat Comment: Physician Instructions: Evaluate and Treat 08/09/19 14:05 Consult to Home Health Routine Comment: DX: Bilateral PE Reason For Exam: FWW for home use Discharge provider: Kelvin Saleh DO Summary Hospital Course Discharge Diagnosis: Please see hospital course by problem list noted below Hospital Course: 1. Bilateral Pulmonary Embolus, present on admission, acute -Bibasilar PE on CTA - treatment options discussed with ICU hospitalist Dr. Lea in [place] by Dr. Lehman in the ED, no interventions were necessary. -Left leg DVT also present on US -Factor V Leiden, Protein C, Protein S and Antithrombin III ordered 08/06 -IV Heparin drip was continued until transition to Eliquis 08/07. He will need to continue Eliquis for at least 6 months. 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 -patient was seen by Physical and Occupational therapy and cleared for discharge home. 2. Subacute Combined Degeneration, present on admission, chronic -he describes a recent B12 level of 90 as an outpatient, with repeat B12 level 686 08/06 -he describes long-term omeprazole use -started on 1000 mcg p.o. B12 daily about 3 weeks ago with subtle improvement in hand numbness the only changes so far. -PT and OT evaluation was obtained and patient can be discharged home. 3. Vitamin B12 Deficiency, present on admission, chronic -686 B12 level, per patient reports he was [address] in mid July [address] Naqvi in [place] -continue vitamin B12 1000 mcg daily by mouth -etiology is most likely a combination of his daily alcohol use, 2 ?tall beers? along with chronic PPI use. -he is not a vegan 4. Asthma, present on admission, chronic -continue albuterol and Flovent -Covid negative 5. Hypertension, present on admission, chronic -BP on admission 138/73, no changes were necessary during the course of his hospitalization. -continue Lisinopril/HCTZ -Replace and monitor the K/Na which are 3.4 and 133 from the HCTZ 6. Alcohol use and possible withdrawal -patient was started on CIWA protocol for slightly increased anxiety on hospital day 2. Other than anxiety he did not show any other symptoms of withdrawal including tremulousness or tongue fasciculations. He received a few doses of oral Ativan which helped. He complains of chronic anxiety. He also has chronic pain and takes opiate pain medications. Upon discharge did not want to discharge on both opiate pain medication and benzodiazepine. Patient was agreeable to gabapentin taper upon discharge. 7. Hypokalemia -secondary to HCTZ use, potassium was repleted during the course of his hospitalization. 8. LLE DVT, acute, present on admission. Exam Vital Signs (past 8 hours): - 08/09/19 07:30 08/09/19 11:00 Temperature 97.6 F 98 F Pulse Rate 62 74 Respiratory Rate 16 16 Blood Pressure 153/69 H 136/72 Pulse Oximetry 96 96 Oxygen Delivery Method Room Air Oxygen Flow Rate 0 Narrative Exam Narrative: GENERAL APPEARANCE: Well developed, well nourished, in no acute distress. SKIN: Inspection of the skin reveals no rashes, ulcerations or petechiae. HEENT: Normocephalic atraumatic, extraocular muscles are intact, oropharynx is clear and mucous membranes are moist, neck is supple without adenopathy NECK: Supple and symmetric. There was no thyroid enlargement, and no tenderness, or masses were felt. CHEST: Normal AP diameter and normal contour without any kyphoscoliosis. LUNGS: Auscultation of the lungs revealed no wheezes, rhonchi, or rales. CARDIOVASCULAR: There was a regular rate and rhythm without any murmurs, gallops, rubs. Peripheral pulses were 2+ and symmetric. ABDOMEN: Soft and nontender with normal bowel sounds. No ascites was noted. MUSCULOSKELETAL: There was no tenderness or effusions noted. Muscle strength and tone were normal. EXTREMITIES: No cyanosis, clubbing or edema. NEUROLOGIC: Alert and oriented x 3. Normal affect. Gait was normal. Strength is +5/5 in the Upper Extremities and Lower Extremities Bilaterally. Sensation to touch was diminished in all extremities. There was no asterixis or tongue fasciculations. Objective Labs Result Diagrams: 08/09/19 07:00 08/09/19 07:00 Labs: Laboratory Results - last 24 hr 08/08/19 08/09/19 08/09/19 19:00 07:00 07:00 WBC 6.4 RBC 3.86 L Hgb 14.1 Hct 39.5 L MCV 102.4 H MCH 36.4 H MCHC 35.5 RDW 13.8 Plt Count 308 Neut % (Auto) 58.3 Lymph % (Auto) 26.9 [place] % (Auto) 9.9 Eos % (Auto) 4.2 H Baso % (Auto) 0.7 Neut # (Auto) 3700 Lymph # (Auto) 1700 [place] # (Auto) 600 Eos # (Auto) 300 Baso # (Auto) 0 APTT 46 H Sodium Potassium Chloride Carbon Dioxide BUN Creatinine Estimated GFR BUN/Creatinine Ratio Glucose Calcium Magnesium 2.1 Total Bilirubin 1.5 H Conjugated Bilirubin 0.0 Unconjugated Bilirubin 0.8 AST 153 H ALT 162 H Alkaline Phosphatase 191 H Total Protein 6.4 Albumin 3.4 L Globulin 3.0 Albumin/Globulin Ratio 1.1 08/09/19 07:00 WBC RBC Hgb Hct MCV MCH MCHC RDW Plt Count Neut % (Auto) Lymph % (Auto) [place] % (Auto) Eos % (Auto) Baso % (Auto) Neut # (Auto) Lymph # (Auto) [place] # (Auto) Eos # (Auto) Baso # (Auto) APTT Sodium 141 Potassium 3.4 Chloride 105 Carbon Dioxide 27 BUN 7 L Creatinine 0.88 Estimated GFR > 60.0 BUN/Creatinine Ratio 8.0 Glucose 109 H Calcium 9.2 Magnesium Total Bilirubin 1.7 H Conjugated Bilirubin Unconjugated Bilirubin AST 139 H ALT 159 H Alkaline Phosphatase 193 H Total Protein 6.4 Albumin 3.3 L Globulin 3.1 Albumin/Globulin Ratio 1.1 Discharge Plan Discharge Plan Patient Disposition: Home Discharge comment: You were admitted to the hospital with bilateral pulmonary embolism and a DVT. You have severe b12 deficiency which is improving. You also had some liver injury from alcohol. For anxiety you are being prescribed a small dose of ativan. You were counseled heavily and are adamant that you will not drink with this medication. Discharge orders & Medications Prescriptions: New thiamine HCl (vitamin B1) [Vitamin B-1] 100 mg Tablet 100 mg PO DAILY 30 Days Qty: 30 RF: 0 folic acid 1 mg Tablet 1 mg PO DAILY 30 Days Qty: 30 RF: 0 apixaban 5 mg (74 tabs) tablets,dose pack See Rx Instructions .ROUTE .COMPLEX Qty: 74 RF: 0 oxycodone 5 mg tablet 5 mg PO Q6H PRN (Reason: pain) 7 Days Qty: 20 RF: 0 gabapentin 300 mg capsule See Rx Instructions .ROUTE .COMPLEX Qty: 11 RF: 0 apixaban 5 mg tablet See Rx Instructions .ROUTE .COMPLEX 30 Days Qty: 74 RF: 0 Continued Flovent HFA 110 mcg/actuation HFA aerosol inhaler 3 inhalation INHALATION Q12H Qty: 12 RF: 0 omeprazole 20 mg capsule,delayed release(DR/EC) 20 mg PO DAILY RF: 0 lisinopril-hydrochlorothiazide 20-25 mg tablet 1 tab PO DAILY RF: 0 ondansetron 4 mg tablet,disintegrating 4 mg PO Q6-8H PRN (Reason: Nausea And Vomiting) RF: 0 albuterol sulfate 90 mcg/actuation HFA aerosol inhaler 2 puff INHALATION Q4-6H PRN (Reason: shortness of breath or wheezing) Qty: 8 RF: 2 cyanocobalamin (vitamin B-12) 1,000 mcg tablet extended release 1,000 mcg PO DAILY RF: 0 Discontinued hydrocodone-acetaminophen [[place]] 5-325 mg tablet 1 tab PO Q4-6H PRN (Reason: pain) Qty: 7 RF: 0 Discharge Health Status Health Concerns: Bilateral pulmonary embolism Anxiety Alcohol use Diet/Activity/Treatments Diet: Diet as Tolerated Activity: As tolerated Visit Report/Discharge Packet Instructions: Alcohol and Stress: There are Safer Ways to [place], Vitamin B12 Deficiency, DI for Deep Vein Thrombosis, DI for Pulmonary Embolism, DI for Alcohol Abuse, How to Prevent Falls, Apixaban Visit Report Forms: Patient Portal/API, Stroke Signs & Symptoms Discharges patient from system. Discharge Date/Time: 08/09/19 17:30
--- NOTE | 2019-08-09 15:48 | CM.DPC ---
DCP/continued: Received notification from provider that patient medically stable for discharge. Spoke with MIRA/Tiffany and she reports that she will see patient prior to d/c. Order obtained for FWW for home use. Current recommendation is for patient to follow up as outpatient for therapies. P: Home today. FWW ordered for home. Patient refused any community resources on 08-08-19 (refer to CM note for details). BRITTANY Galan
[2019-08-09 16:21] LABS: Hepatitis B Surface Antigen NEGATIVE s/c (NEGATIVE)
[2019-08-09 16:34] LABS: Hep C Virus Ab w/Reflex Quant NEGATIVE s/c (NEGATIVE)
--- NOTE | 2019-08-09 18:49 | PC.NURSE ---
Discharge Note- Patient discharged home per MD. Reviewed discharged info and education with patient and paperwork signed. IV lie removed and bandaid applied. Tele monitor removed. Patient and sig other packed up all personal belongings. Patient taken to personal vehicle with all personal belongings via wheelchair.
[2019-08-11 00:10] LABS: Antithrombin Activity 93 % (75-135); Antithrombin Antigen 85 % (72-124); Protein C-Functional 113 % (73-180); Protein S-Functional 188 % (63-140)
== END 2019-08-09 17:30 | disposition home or self-care (01) | DRG 134 ==
LOC: ED 10:39 → AC 10:44
PROVIDERS: Internal Medicine; Admitting Provider Family Medicine; Emergency Provider Emergency Medicine; Referring Provider Emergency Medicine; Visit Provider Family Medicine
DX: I26.99 Other pulmonary embolism without acute cor pulmonale (principal); I82.432 Acute embolism and thrombosis of left popliteal vein; G32.0 Subacute combined degeneration of spinal cord in diseases classified elsewhere; E53.8 Deficiency of other specified B group vitamins; R09.1 Pleurisy; R27.0 Ataxia, unspecified; K21.9 Gastro-esophageal reflux disease without esophagitis; J45.909 Unspecified asthma, uncomplicated; I10 Essential (primary) hypertension; F10.230 Alcohol dependence with withdrawal, uncomplicated; Z87.891 Personal history of nicotine dependence; R94.5 Abnormal results of liver function studies; R10.11 Right upper quadrant pain
CPT/HCPCS: 36415; 70551; 71275; 74177; 76705; 80048; 80053; 80076; 80329; 81003; 81241; 82150; 82550; 82607; 83690; 83735; 84484; 85025; 85300; 85301; 85303; 85306; 85610; 85730; 86803; 87040; 87340; 87635; 93005; 93010; 93970; 94640; 94762; 96361; 96374; 96375; 97116; 97129; 97163; 97167; 97530; 97535; 99284; 99285; G0480; J1644; J1885; J2270; J2405; Q9967

== ENCOUNTER 2019-12-05 15:16 | Inpatient (IN) | payer OTHER, MEDICAID, SELFPAY ==
[2019-08-07 13:00] VITALS: BMI 27.3
[2019-12-05 15:19] VITALS: BP 144/88; PULSE 104; RESP 24; TEMP 37.1; O2SAT 100
[2019-12-05] MEDS: SODIUM CHLORIDE 0.9% 1,000 ML 1000 ML IV (15:54)
[2019-12-05] MEDS: ONDANSETRON 4 MG/2 ML INJ IV ×2 (15:54→22:12)
[2019-12-05 15:57] LABS: Add Manual Diff / Slide Review NO; Basophils Absolute Auto 0 /uL (0-100); Basophils Percent Auto 0.6 % (0-2); Eosinophils Absolute Auto 0 /uL (0-450); Eosinophils Percent Auto 0.6 % (2-4); Hematocrit 43.7 % (41-53); Hemoglobin 15.8 g/dL (13.5-17.5); Lymphocytes Absolute Auto 1200 /uL (1100-4500); Lymphocytes Percent Auto 19.5 % (25-40); Mean Corpuscular HGB Conc 36.3 % (30-36); Mean Corpuscular Hemoglobin 34.1 PG (26-34); Mean Corpuscular Volume 94.1 fL (80-100); Monocytes Absolute Auto 700 /uL (0-900); Neutrophils Absolute Auto 4100 /uL (1500-7000); Neutrophils Percent Auto 67.3 % (50-75); Platelet Count 149 X10^3/uL (150-400); Red Blood Cell Count 4.65 X10^6/uL (4.5-5.9); Red Cell Distribution Width 14.3 % (11.6-14.8); White Blood Cell Count 6.1 X10^3/uL (4.5-11.0)
[2019-12-05 15:58] VITALS: BP 129/73; PULSE 101; O2SAT 97
[2019-12-05 16:00] VITALS: BP 132/86; PULSE 100; O2SAT 96
--- NOTE | 2019-12-05 16:00 | ED_ITS ---
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 He frequently has nausea and vomiting he has got Zofran at home. He states it has not been working over the last 4 days and he has not been able to keep anything down. He feels like he has burning in his stomach. He is scheduled for an EGD in a few days. He denies any diarrhea no real abdominal pain he denies any feve r or chills. No one else with symptoms. MD complaint: nausea and vomiting Quality: other (Burning) Pain Consistency: constant Relieving factors: none Exacerbating factors: none Related Data Home Medications Medication Instructions Recorded Confirmed lisinopril-hydrochlorothiazide 1 tab PO DAILY 03/18/19 08/07/19 omeprazole 20 mg PO DAILY 03/18/19 08/07/19 ondansetron 4 mg PO Q6-8H PRN 03/18/19 08/07/19 cyanocobalamin (vitamin B-12) 1,000 mcg PO DAILY 08/06/19 08/07/19 Previous Rx's Medication Instructions Recorded albuterol sulfate 2 puff INHALATION Q4-6H PRN #8 gram 02/19/18 Flovent HFA 3 inhalation INHALATION Q12H #12 05/06/18 gram apixaban See Rx Instructions .ROUTE 08/09/19 .COMPLEX #74 each gabapentin See Rx Instructions .ROUTE 08/09/19 .COMPLEX #11 cap Allergies Allergy/AdvReac Type Severity Reaction Status Date / Time No Known Drug Allergies Allergy Verified 08/06/19 17:04 Review of Systems Review of Systems Narrative: GENERAL: Denies chills, fatigue, malaise, fever, sweats, travel HEENT: Denies sinus pain, ear pain, sore throat, difficulty swallowing, neck pain RESPIRATORY: Denies dyspnea, cough, wheezing, hemoptysis, sputum. CARDIOVASCULAR: Denies chest pain, palpitations, orthopnea, edema GASTROINTESTINAL: See HPI : Denies dysuria, frequency, incontinence, hematuria, urinary retention, flank pain. MUSCULOSKELETAL: Denies weakness, joint pain, or bony pain SKIN: No rash, no erythema, no pruritus NEUROLOGIC: Denies weakness, dizziness, headache, numbness, change in speech, confusion PSYCHIATRIC: No concerning psychosocial issues. 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) Vitamin B12 deficiency nervous system syndrome (Acute) Surgical History H/O hand surgery (Acute) Family History Father Drug use Mother Diverticulitis Social History household members: significant other and other Smoking Status: Former smoker Smoking Status: Former smoker alcohol intake frequency: 0-2 drinks per day Substance Use Type: does not use Exam Initial Vital Signs Initial Vital Signs: Vital Signs Temperature 98.7 F 12/05/19 15:19 Pulse Rate 104 H 12/05/19 15:19 Respiratory Rate 24 12/05/19 15:19 Blood Pressure 144/88 H 12/05/19 15:19 Pulse Oximetry 100 12/05/19 15:19 GENERAL: Well-appearing, well-nourished and in no acute distress. HEENT: Head atraumatic,EOMI, pupils reactive, face symmetric, moist mucous membranes CARDIOVASCULAR: Regular rate and rhythm without murmurs, rubs or gallops. RESPIRATORY: Breath sounds equal bilaterally, no wheezes rales or rhonchi. ABDOMEN: Soft, nontender. Normoactive bowel sounds all 4 quadrants. No guarding or rebound. EXTREMITIES: Normal range of motion, no clubbing or edema. Neurovascularly intact NEUROLOGICAL: Alert and oriented x4.Normal gait and speech. SKIN: Warm, dry, no laceration, no petechiae, no rashes or lesions. Course Orders Ordered: ED Orders 12/05/19 15:50 Complete Blood Count AUTO DIFF Stat Comprehensive Metabolic Panel Stat Lipase Stat 12/05/19 17:05 COVID19 -ED/INPAT/OR/L&D Stat Discontinued Medications Hydromorphone HCl (Dilaudid) 1 mg IV NOW ONE Stop: 12/05/19 16:02 Last Admin: 12/05/19 16:12 Dose: 1 mg Documented by: KEVIN Sodium Chloride (Normal Saline 0.9%) 1,000 mls @ 1,000 mls/hr IV BOLUS ONE Stop: 12/05/19 16:23 Last Infusion: 12/05/19 17:51 Dose: 100 mls/hr Documented by: Infusion: 12/05/19 16:21 Dose: 100 mls/hr Documented by: Admin: 12/05/19 15:54 Dose: 1,000 mls/hr Documented by: KEVIN Ondansetron HCl (Zofran) 4 mg IV NOW ONE Stop: 12/05/19 15:25 Last Admin: 12/05/19 15:54 Dose: 4 mg Documented by: KEVIN Pantoprazole Sodium (Protonix) 40 mg IV NOW ONE Stop: 12/05/19 16:02 Last Admin: 12/05/19 16:12 Dose: 40 mg Documented by: KEVIN Vital Signs Vital signs: Vital Signs - 8 hr 12/05/19 15:19 12/05/19 15:58 12/05/19 16:00 Temperature 98.7 F Pulse Rate 104 H 101 H 100 H Respiratory Rate 24 Blood Pressure 144/88 H 129/73 132/86 Pulse Oximetry 100 97 96 12/05/19 16:30 Temperature Pulse Rate 89 Respiratory Rate Blood Pressure 126/79 Pulse Oximetry 95 MDM - Nausea/Vomiting/Diarrhea Lab Data Attestation: I reviewed the patient's lab results. Result diagrams: 12/05/19 15:50 12/05/19 15:50 Labs: Lab Results 12/05/19 12/05/19 12/05/19 Range/Units 15:50 15:50 15:50 WBC 6.1 (4.5-11.0) X10^3/uL RBC 4.65 (4.5-5.9) X10^6/uL Hgb 15.8 (13.5-17.5) g/dL Hct 43.7 (41-53) % MCV 94.1 (80-100) fL MCH 34.1 H (26-34) PG MCHC 36.3 H (30-36) % RDW 14.3 (11.6-14.8) % Plt Count 149 L (150-400) X10^3/uL Neut % (Auto) 67.3 (50-75) % Lymph % (Auto) 19.5 L (25-40) % [place] % (Auto) 12.0 (3-14) % Eos % (Auto) 0.6 L (2-4) % Baso % (Auto) 0.6 (0-2) % Neut # (Auto) 4100 (4073-0376) /uL Lymph # (Auto) 1200 (5539-2158) /uL [place] # (Auto) 700 (0-900) /uL Eos # (Auto) 0 (0-450) /uL Baso # (Auto) 0 (0-100) /uL Sodium 115 L* (137-145) mmol/L Potassium 3.3 L (3.4-5.1) mmol/L Chloride 73 L* (98-107) mmol/L Carbon Dioxide 18 L (22-32) mmol/L BUN 18 (9-20) mg/dL Creatinine 0.79 (0.66-1.25) mg/dL Estimated GFR > 60.0 (>60) mL/min BUN/Creatinine Ratio 22.8 H (6-22) Glucose 82 (70-100) mg/dL Calcium 9.1 (8.4-10.2) mg/dL Magnesium (1.6-2.3) mg/dL Total Bilirubin 1.9 H (0.2-1.3) mg/dL AST 299 H (17-59) IU/L ALT 230 H (<50) IU/L Alkaline Phosphatase 68 (38-126) U/L Total Protein 7.2 (6.3-8.2) g/dL Albumin 4.7 (3.5-5.0) g/dL Globulin 2.5 (1.7-4.1) g/dL Albumin/Globulin Ratio 1.9 (1.0-2.8) Lipase 303 H (23-300) U/L TSH (0.47-4.68) uIU/mL Ethyl Alcohol ( - 10) mg/dL COVID-19 PCR (Negative) 12/05/19 12/05/19 12/05/19 Range/Units 15:50 15:50 17:05 WBC (4.5-11.0) X10^3/uL RBC (4.5-5.9) X10^6/uL Hgb (13.5-17.5) g/dL Hct (41-53) % MCV (80-100) fL MCH (26-34) PG MCHC (30-36) % RDW (11.6-14.8) % Plt Count (150-400) X10^3/uL Neut % (Auto) (50-75) % Lymph % (Auto) (25-40) % [place] % (Auto) (3-14) % Eos % (Auto) (2-4) % Baso % (Auto) (0-2) % Neut # (Auto) (6988-2974) /uL Lymph # (Auto) (2019-2566) /uL Tucker # (Auto) (0-900) /uL Eos # (Auto) (0-450) /uL Baso # (Auto) (0-100) /uL Sodium (137-145) mmol/L Potassium (3.4-5.1) mmol/L Chloride (98-107) mmol/L Carbon Dioxide (22-32) mmol/L BUN (9-20) mg/dL Creatinine (0.66-1.25) mg/dL Estimated GFR (>60) mL/min BUN/Creatinine Ratio (6-22) Glucose (70-100) mg/dL Calcium (8.4-10.2) mg/dL Magnesium 1.7 (1.6-2.3) mg/dL Total Bilirubin (0.2-1.3) mg/dL AST (17-59) IU/L ALT (<50) IU/L Alkaline Phosphatase (38-126) U/L Total Protein (6.3-8.2) g/dL Albumin (3.5-5.0) g/dL Globulin (1.7-4.1) g/dL Albumin/Globulin Ratio (1.0-2.8) Lipase (23-300) U/L TSH 0.897 (0.47-4.68) uIU/mL Ethyl Alcohol 62 H ( - 10) mg/dL COVID-19 PCR Negative (Negative) Imaging Data Abdominal x-ray: Radiologist's Impression: PROCEDURE: XR ACUTE ABDOMEN SERIES INDICATIONS: vomting TECHNIQUE: One view chest and two views of the abdomen were acquired. COMPARISON: [facility], CT, CT ABDOMEN PELVIS W CON, 08/07/2019, 8:31. FINDINGS: Surgical changes and devices: None. Chest: Nodule opacity projecting over the right lung base. Heart size is normal. No pleural effusions. No pneumoperitoneum. Abdomen: Bowel gas pattern is normal. No suspicious calcifications. Visualized solid organ contours appear normal. Bones: No suspicious bony lesions. IMPRESSION: Nonobstructive bowel gas pattern. No acute cardiopulmonary abnormality. Nodular opacity of the right lung base. Recommend nonurgent CT of the chest for further evaluation. Dictated by: Karel Cueto M.D. on 12/05/2019 at 16:23 MDM Narrative Medical decision making narrative: Patient is found to be severely hyponatremic and hypochloremic. Unknown cause at this time. He has been nauseous with vomiting likely hypovolemic, normal saline started at 100 mL an hour. Patient overall appears well he is alert an oriented. Unclear how quickly this has come on. No new focal deficits. He has chronic numbness and tingling in his hands and feet due to subacute combined degeneration. Abdomen is overall soft and nontender. X-ray is negative no sign of obstruction. He is given Protonix to help with the burning sensation which does seem to help. He also is requesting some pain medication he takes oxycodone at least [address] lockhart updated in patient's symptoms test results and happily accept Discharge Plan Departure Patient Disposition: Admitted As Inpatient Clinical Impression: Acute hyponatremia Discharge Date/Time: 12/05/19 17:30 Admit Date/Time: 12/05/19 17:07 Admit Provider: Tracy Lockhart
[2019-12-05 16:12] LABS: Alanine Aminotransferase 230 IU/L (<50); Albumin 4.7 g/dL (3.5-5.0); Albumin Globulin Ratio 1.9 (1.0-2.8); Alkaline Phosphatase 68 U/L (38-126); Aspartate Aminotransferase 299 IU/L (17-59); BUN Creatinine Ratio 22.8 (6-22); Bilirubin Total 1.9 mg/dL (0.2-1.3); Blood Urea Nitrogen 18 mg/dL (9-20); Calcium 9.1 mg/dL (8.4-10.2); Carbon Dioxide 18 mmol/L (22-32); Estimated Glomerular Filt Rate > 60.0 mL/min (>60); Globulin 2.5 g/dL (1.7-4.1); Glucose 82 mg/dL (70-100); HEMOLYSIS 24 (0-50); Potassium 3.3 mmol/L (3.4-5.1); Total Protein 7.2 g/dL (6.3-8.2)
[2019-12-05] MEDS: HYDROMORPHONE 1 MG INJ IV (16:12)
[2019-12-05] MEDS: PANTOPRAZOLE 40 MG VIAL IV (16:12)
[2019-12-05 16:18] LABS: Chloride 73 mmol/L (98-107); Sodium 115 mmol/L (137-145)
--- NOTE | 2019-12-05 16:20 | PC.NURSE ---
critical lab value NA+ 117, Cl- 73. Dr Lobo took phone call from lab. NS bolus slowed at this time to 100mL/hr per verbal order.
[2019-12-05 16:30] VITALS: BP 126/79; PULSE 89; O2SAT 95
[2019-12-05 16:43] LABS: Lipase 303 U/L (23-300)
--- NOTE | 2019-12-05 16:54 | PC.NURSE ---
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 NV x 4 days. GERD. Appears well and VSS. Given protonix, zofran, and IVF at 100 ml/hr. states he is scheduled for an EGD in a few days. Alexandr SNT, lungs clear, AAO x 3 ambulatory
--- NOTE | 2019-12-05 17:08 | DI.RAD.S_ITS ---
PROCEDURE: XR ACUTE ABDOMEN SERIES INDICATIONS: vomting TECHNIQUE: One view chest and two views of the abdomen were acquired. COMPARISON: [facility], CT, CT ABDOMEN PELVIS W CON, 08/07/2019, 8:31. FINDINGS: Surgical changes and devices: None. Chest: Nodule opacity projecting over the right lung base. Heart size is normal. No pleural effusions. No pneumoperitoneum. Abdomen: Bowel gas pattern is normal. No suspicious calcifications. Visualized solid organ contours appear normal. Bones: No suspicious bony lesions. IMPRESSION: Nonobstructive bowel gas pattern. No acute cardiopulmonary abnormality. Nodular opacity of the right lung base. Recommend nonurgent CT of the chest for further evaluation. Dictated by: Karel Cueto M.D. on 12/05/2019 at 16:23 Approved by: Karel Cueto M.D. on 12/05/2019 at 16:34
[2019-12-05 17:30] VITALS: BP 124/85; PULSE 90; RESP 18; TEMP 36.6; O2SAT 100
[2019-12-05 17:30] LABS: COVID19 -Nasal RAPID Negative (Negative)
[2019-12-05 17:59] LABS: Ethanol (ETOH) 62 mg/dL; Magnesium 1.7 mg/dL (1.6-2.3)
[2019-12-05 18:01] LABS: Thyroid Stimulating Hormone 0.897 uIU/mL (0.47-4.68)
[2019-12-05 18:55] VITALS: BMI 26.6
[2019-12-05 21:45] LABS: Bacteria Urine None Seen; RBC Urine None Seen (0-5/HPF); WBC Urine None Seen (0-5/HPF)
[2019-12-05 21:46] LABS: Appearance Urine UA CLEAR; Bilirubin Urine UA 1+ (NEGATIVE); Glucose Urine UA NEGATIVE (Negative); Ketones Urine UA 3+ (NEGATIVE); Leukocyte Esterase Urine UA NEGATIVE (NEGATIVE); Nitrite Urine UA NEGATIVE (Negative); Occult Blood Urine UA TRACE-INTACT (Negative); Protein Urine UA TRACE (Negative); Urobilinogen Urine UA 0.2 E.U./dL (0.2); pH Urine UA 5.5 (4.5-8.0)
[2019-12-05 21:49] LABS: Color Urine UA Dark Yellow
[2019-12-05 21:51] LABS: UR Morphine/Opiate cutoff 300 Negative (Negative); Ur Creatinine Normal (Normal); Ur Specific Gravity Normal (Normal); Urine Amphetamines Negative (Negative); Urine Barbiturates Negative (Negative); Urine Benzodiazepines Negative (Negative); Urine Cocaine Negative (Negative); Urine MDMA Negative (Negative); Urine Methadone Negative (Negative); Urine Methamphetamines Negative (Negative); Urine Oxycodone Negative (Negative); Urine Phencyclidine Negative (Negative); Urine Tetrahydrocannabinol Negative (Negative); Urine Tricyclic Antidepressant Negative (Negative); Urine pH Normal (Normal)
[2019-12-05 21:53] LABS: Culture Indicated Urine Cult Not Indicated; Squamous Epithelial Cell Urine 0-1 /HPF (0-5/HPF)
[2019-12-05 22:06] LABS: Ammonia (NH3) < 9 umol/L (9-30)
[2019-12-05 22:08] LABS: Ictotest Urine Positive (Negative)
[2019-12-05] MEDS: OXYCODONE IR 5 MG TABLET PO (22:11)
[2019-12-05] MEDS: LORazepam 0.5 MG TABLET PO (22:12)
[2019-12-05 22:26] LABS: Vitamin B12 713 pg/mL (239-931)
[2019-12-05] MEDS: MAGNESIUM SULFATE 2 GM, FOLIC ACID 1 MG, THIAMINE 100 MG, MULTIVITAMIN 10 ML in SODIUM ... IV (22:41)
--- NOTE | 2019-12-05 23:01 | PC.ADMIT ---
[id number] [facility] Admission Note: The patient,Anand Fulton,39 y/o, was given written information regarding hospital policies, unit procedures and contact persons. Pt arrived via stretcher at approx 1730. Ambulated to bed with personal cane. Steady on feet. Oriented to room and call system. Bed alarm on. for safety. After provider rounded at approx 2030. NPO. Water removed. Ice chips provided. Seizure pads placed on bed. Sig other rooming in for the night. Patient's smoking status: Former smoker. Vital Signs - 8 hr 12/05/19 15:19 12/05/19 15:58 12/05/19 16:00 Temperature 98.7 F Pulse Rate 104 H 101 H 100 H Respiratory Rate 24 Blood Pressure 144/88 H 129/73 132/86 Pulse Oximetry 100 97 96 12/05/19 16:30 12/05/19 17:30 Temperature 97.9 F Pulse Rate 89 90 Respiratory Rate 18 Blood Pressure 126/79 124/85 Pulse Oximetry 95 100
[2019-12-06] VITALS (11 sets, daily range): BP systolic 114–139; BP diastolic 67–84; PULSE 71–106; RESP 16–20; TEMP 36.3–37.7; O2SAT 97–99
[2019-12-06] MEDS: HYDROMORPHONE 1 MG INJ IV ×6 (00:18→20:58)
--- NOTE | 2019-12-06 00:56 | P.HP_ITS ---
History of Present Illness History of Present Illness Date Patient Seen: 12/05/19 Time Patient Seen: 22:00 Chief complaint: vomiting past few days Narrative: Anand Fulton is a 39 y.o. male with a history of chronic pain and opiate dependency, alcoholism and bilateral pulmonary embolisms diagnosed and treated since August of this year presented to the Emergency Department with nausea for 4 days. He has not been able to take in fluids, food or oral medications. He has also not had a bm in 4 days. He denies shortness of breath, chest pain, has chronic back pain, and subacute spinal degeneration associated with a B12 deficiency. His B12 level is normal today. DVT diagnosed in August is due to what was thought to be immobility associated with his spinal condition. Patient is mildly febrile at 99.9, blood pressure 114/69, respiratory rate of 16, oxygen saturation 97% on room air, he weighs 79.3 kg with a BMI of 26.6. WBC is 6.1 RBC 4.65 hemoglobin 15.8 hematocrit 43.7, platelet count 149, sodium 115, potassium 3.3, chloride 73, bicarb 18, BUN 18, creatinine 0.79, GFR greater than 60, glucose is 82, magnesium 1.7, total bilirubin is 1.9, AST 299, ALT 230, alk-phos 68, ammonia level is normal at less than 9, lipase is 303, he does have ketones in his urine an elevated protein, urine bilirubin is 1+ no bacterial cells seen, alcohol level is elevated at 62, COVID-19 PCR is negative. 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) Vitamin B12 deficiency nervous system syndrome (Acute) Surgical History H/O hand surgery (Acute) Family & Social History Family History Father Drug use Mother Diverticulitis Social History: household members significant other,other Prior Living Arrangements Mobile home Safety & Behavioral: Feels Safe in Current Yes Environment Suicidal Ideation Description None Tobacco & Substance use: Smoking Status Former smoker alcohol intake frequency shy of one pint hard liquor/day Substance Use Type does not use Meds Home Medications and Allergies Home Medications Medication Instructions Recorded Confirmed Type albuterol sulfate 2 puff INHALATION Q4-6H PRN #8 gram 02/19/18 12/05/19 Rx Flovent HFA 3 inhalation INHALATION Q12H #12 05/06/18 12/05/19 Rx gram lisinopril-hydrochlorothiazide 1 tab PO DAILY 03/18/19 12/05/19 History omeprazole 20 mg PO DAILY 03/18/19 12/05/19 History ondansetron 4 mg PO Q6-8H PRN 03/18/19 12/05/19 History cyanocobalamin (vitamin B-12) 1,000 mcg PO DAILY 08/06/19 12/05/19 History apixaban See Rx Instructions .ROUTE 08/09/19 12/05/19 Rx .COMPLEX #74 each lorazepam 0.5 mg PO TID 12/05/19 12/05/19 History oxycodone 5 mg PO TID 12/05/19 12/05/19 History Allergies Allergy/AdvReac Type Severity Reaction Status Date / Time No Known Drug Allergies Allergy Verified 08/06/19 17:04 Review of Systems Review of Systems ROS: Yes All systems reviewed with the patient and are negative except as otherwise documented Exam Vital Signs (past 8 hours): - 12/05/19 17:30 12/06/19 00:13 Temperature 97.9 F 99.9 F H Pulse Rate 90 106 H Respiratory Rate 18 16 Blood Pressure 124/85 114/69 Pulse Oximetry 100 97 Oxygen Delivery Method Room Air Oxygen Flow Rate 0 Narrative Exam Narrative: Gen: Alert, oriented, well-developed 39 y.o. male, appears ill HEENT: normocephalic, atraumatic, conjunctiva clear, sclera non-icteric, oral mucosa pink and moist Neck: supple, full ROM, no JVD, trachea is midline Resp: Lungs CTA, non-labored breathing CV: RRR, no murmur or rubs Abd: soft, diffusely tender, normoactive BTs Skin: no lesions or rashes, dry and intact Neuro: Alert and oriented X 4 w/no focal deficits. Speech clear and coherent. Extremities: moves all 4 extremities, is ambulatory, negative Mishel?s sign Psyche: anxious Objective Labs Result Diagrams: 12/05/19 15:50 12/05/19 15:50 Labs: Laboratory Results - last 24 hr 12/05/19 12/05/19 12/05/19 15:50 15:50 15:50 WBC 6.1 RBC 4.65 Hgb 15.8 Hct 43.7 MCV 94.1 MCH 34.1 H MCHC 36.3 H RDW 14.3 Plt Count 149 L Neut % (Auto) 67.3 Lymph % (Auto) 19.[address] % (Auto) 12.0 Eos % (Auto) 0.6 L Baso % (Auto) 0.6 Neut # (Auto) 4100 Lymph # (Auto) 1200 [place] # (Auto) 700 Eos # (Auto) 0 Baso # (Auto) 0 Sodium 115 L* Potassium 3.3 L Chloride 73 L* Carbon Dioxide 18 L BUN 18 Creatinine 0.79 Estimated GFR > 60.0 BUN/Creatinine Ratio 22.8 H Glucose 82 Calcium 9.1 Magnesium Total Bilirubin 1.9 H AST 299 H ALT 230 H Alkaline Phosphatase 68 Ammonia Total Protein 7.2 Albumin 4.7 Globulin 2.5 Albumin/Globulin Ratio 1.9 Lipase 303 H Vitamin B12 TSH Urine Color Urine Appearance Urine pH Ur Specific [place] Urine Protein Urine Glucose (UA) Urine Ketones Urine Occult Blood Urine Nitrate Urine Bilirubin Ur Bilirubin Confirm Urine Urobilinogen Ur Leukocyte Esterase Urine RBC Urine WBC Ur Squamous Epith Cells Urine Bacteria Ur Culture Indicated? U Opiates 300ng/mL cut Ur Oxycodone Screen Urine Methadone Screen Ur Barbiturates Screen U Tricyclic Antidepress Ur Phencyclidine Scrn Ur Amphetamines Screen U Methamphetamines Scrn Ur MDMA Scrn (Ecstasy) U Benzodiazepines Scrn Urine Cocaine Screen U Marijuana (THC) Screen Ethyl Alcohol COVID-19 PCR 12/05/19 12/05/19 12/05/19 15:50 15:50 15:50 WBC RBC Hgb Hct MCV MCH MCHC RDW Plt Count Neut % (Auto) Lymph % (Auto) [place] % (Auto) Eos % (Auto) Baso % (Auto) Neut # (Auto) Lymph # (Auto) [place] # (Auto) Eos # (Auto) Baso # (Auto) Sodium Potassium Chloride Carbon Dioxide BUN Creatinine Estimated GFR BUN/Creatinine Ratio Glucose Calcium Magnesium 1.7 Total Bilirubin AST ALT Alkaline Phosphatase Ammonia Total Protein Albumin Globulin Albumin/Globulin Ratio Lipase Vitamin B12 713 TSH 0.897 Urine Color Urine Appearance Urine pH Ur Specific [place] Urine Protein Urine Glucose (UA) Urine Ketones Urine Occult Blood Urine Nitrate Urine Bilirubin Ur Bilirubin Confirm Urine Urobilinogen Ur Leukocyte Esterase Urine RBC Urine WBC Ur Squamous Epith Cells Urine Bacteria Ur Culture Indicated? U Opiates 300ng/mL cut Ur Oxycodone Screen Urine Methadone Screen Ur Barbiturates Screen U Tricyclic Antidepress Ur Phencyclidine Scrn Ur Amphetamines Screen U Methamphetamines Scrn Ur MDMA Scrn (Ecstasy) U Benzodiazepines Scrn Urine Cocaine Screen U Marijuana (THC) Screen Ethyl Alcohol 62 H COVID-19 PCR 12/05/19 12/05/19 12/05/19 17:05 20:30 20:30 WBC RBC Hgb Hct MCV MCH MCHC RDW Plt Count Neut % (Auto) Lymph % (Auto) [place] % (Auto) Eos % (Auto) Baso % (Auto) Neut # (Auto) Lymph # (Auto) [place] # (Auto) Eos # (Auto) Baso # (Auto) Sodium Potassium Chloride Carbon Dioxide BUN Creatinine Estimated GFR BUN/Creatinine Ratio Glucose Calcium Magnesium Total Bilirubin AST ALT Alkaline Phosphatase Ammonia Total Protein Albumin Globulin Albumin/Globulin Ratio Lipase Vitamin B12 TSH Urine Color Dark yellow Urine Appearance Clear Urine pH 5.5 Ur Specific [place] 1.020 Urine Protein Trace H Urine Glucose (UA) Negative Urine Ketones 3+ H Urine Occult Blood Trace-intact Urine Nitrate Negative Urine Bilirubin 1+ H Ur Bilirubin Confirm Positive H Urine Urobilinogen 0.2 Ur Leukocyte Esterase Negative Urine RBC None seen Urine WBC None seen Ur Squamous Epith Cells 0-1 /hpf Urine Bacteria None seen Ur Culture Indicated? Cult not indicated U Opiates 300ng/mL cut Negative Ur Oxycodone Screen Negative Urine Methadone Screen Negative Ur Barbiturates Screen Negative U Tricyclic Antidepress Negative Ur Phencyclidine Scrn Negative Ur Amphetamines Screen Negative U Methamphetamines Scrn Negative Ur MDMA Scrn (Ecstasy) Negative U Benzodiazepines Scrn Negative Urine Cocaine Screen Negative U Marijuana (THC) Screen Negative Ethyl Alcohol COVID-19 PCR Negative 12/05/19 21:37 WBC RBC Hgb Hct MCV MCH MCHC RDW Plt Count Neut % (Auto) Lymph % (Auto) [place] % (Auto) Eos % (Auto) Baso % (Auto) Neut # (Auto) Lymph # (Auto) [place] # (Auto) Eos # (Auto) Baso # (Auto) Sodium Potassium Chloride Carbon Dioxide BUN Creatinine Estimated GFR BUN/Creatinine Ratio Glucose Calcium Magnesium Total Bilirubin AST ALT Alkaline Phosphatase Ammonia < 9 L Total Protein Albumin Globulin Albumin/Globulin Ratio Lipase Vitamin B12 TSH Urine Color Urine Appearance Urine pH Ur Specific [place] Urine Protein Urine Glucose (UA) Urine Ketones Urine Occult Blood Urine Nitrate Urine Bilirubin Ur Bilirubin Confirm Urine Urobilinogen Ur Leukocyte Esterase Urine RBC Urine WBC Ur Squamous Epith Cells Urine Bacteria Ur Culture Indicated? U Opiates 300ng/mL cut Ur Oxycodone Screen Urine Methadone Screen Ur Barbiturates Screen U Tricyclic Antidepress Ur Phencyclidine Scrn Ur Amphetamines Screen U Methamphetamines Scrn Ur MDMA Scrn (Ecstasy) U Benzodiazepines Scrn Urine Cocaine Screen U Marijuana (THC) Screen Ethyl Alcohol COVID-19 PCR Assessment & Plan Assessment & Plan narrative: Anand Fulton will be admitted as an inpatient for further treatment and m anagement of persistent nausea and vomiting, alcohol withdrawal, and continuance of treatment of a bilateral pulmonary embolism. Nausea and vomiting, acute, present on admission -IV zofran prn -IVF with banana bag -NPO except meds Acute severe hyponatremia -NS at 175 ml/hour -BMP daily Bilateral PE, chronic, present on admission since August 2019 -continue home dose of apixaban 5 mg po bid Alcohol withdrawal, chronic, present on admission -CIWA has been zero -Ativan 2 mg IV prn Chronic pain, present on admission -Continue home dose of ativan 0.5 mg and oxycodone 5 mg po both tid -IV dilaudid 2 mg q 3 hours as needed for pain, de-escalate daily VTE prophylaxis: Currently being treated for a bilateral pulmonary embolism with apixaban 5 mg p.o. twice daily Consults: none Patient is admitted under inpatient status with expected length of stay greater than 2 midnights due to severity of presenting symptoms, risk of adverse event, and complexity of treatment plan. FEN: IV NS at 175 ml/hour,NPO except meds , BMP and magnesium in the am. Dispo: probable discharge to home Code Status: full code as discussed with patient Quality VTE Deep Vein Thrombosis/Pulmonary Embolism Present on Admission: Yes
[2019-12-06 02:27] LABS: Chloride 79 mmol/L (98-107); HEMOLYSIS < 15 (0-50)
[2019-12-06 02:28] LABS: BUN Creatinine Ratio 15.7 (6-22); Blood Urea Nitrogen 14 mg/dL (9-20); Calcium 8.5 mg/dL (8.4-10.2); Carbon Dioxide 32 mmol/L (22-32); Estimated Glomerular Filt Rate > 60.0 mL/min (>60); Glucose 82 mg/dL (70-100); Potassium 3.5 mmol/L (3.4-5.1); Sodium 120 mmol/L (137-145)
[2019-12-06 06:20] LABS: Add Manual Diff / Slide Review NO; Basophils Absolute Auto 0 /uL (0-100); Eosinophils Absolute Auto 100 /uL (0-450); Eosinophils Percent Auto 2.6 % (2-4); Hematocrit 39.4 % (41-53); Hemoglobin 13.9 g/dL (13.5-17.5); Lymphocytes Absolute Auto 1300 /uL (1100-4500); Lymphocytes Percent Auto 31.7 % (25-40); Mean Corpuscular HGB Conc 35.2 % (30-36); Mean Corpuscular Hemoglobin 33.4 PG (26-34); Monocytes Absolute Auto 400 /uL (0-900); Monocytes Percent Auto 9.2 % (3-14); Neutrophils Absolute Auto 2300 /uL (1500-7000); Neutrophils Percent Auto 55.5 % (50-75); Platelet Count 117 X10^3/uL (150-400); Red Blood Cell Count 4.15 X10^6/uL (4.5-5.9); Red Cell Distribution Width 14.3 % (11.6-14.8); White Blood Cell Count 4.2 X10^3/uL (4.5-11.0)
[2019-12-06 06:28] LABS: Alanine Aminotransferase 242 IU/L (<50); Albumin 3.8 g/dL (3.5-5.0); Albumin Globulin Ratio 1.7 (1.0-2.8); Alkaline Phosphatase 61 U/L (38-126); Aspartate Aminotransferase 401 IU/L (17-59); BUN Creatinine Ratio 14.1 (6-22); Bilirubin Total 2.2 mg/dL (0.2-1.3); Blood Urea Nitrogen 12 mg/dL (9-20); Calcium 8.3 mg/dL (8.4-10.2); Carbon Dioxide 31 mmol/L (22-32); Chloride 81 mmol/L (98-107); Estimated Glomerular Filt Rate > 60.0 mL/min (>60); Globulin 2.3 g/dL (1.7-4.1); Glucose 78 mg/dL (70-100); HEMOLYSIS < 15 (0-50); Magnesium 2.7 mg/dL (1.6-2.3); Potassium 3.3 mmol/L (3.4-5.1); Sodium 121 mmol/L (137-145); Total Protein 6.1 g/dL (6.3-8.2)
[2019-12-06] MEDS: SODIUM CHLORIDE 0.9% 1,000 ML 150 ML IV ×3 (07:18→19:51)
[2019-12-06] MEDS: OXYCODONE IR 5 MG TABLET PO ×3 (08:24→20:08)
[2019-12-06] MEDS: DOCUSATE 100 MG CAPSULE PO ×2 (08:25→20:08)
[2019-12-06] MEDS: APIXABAN 5 MG TABLET PO ×2 (08:25→20:09)
[2019-12-06] MEDS: lisinopriL 20 MG TABLET PO (08:25)
[2019-12-06] MEDS: PANTOPRAZOLE 20 MG TABLET PO (08:25)
[2019-12-06] MEDS: THIAMINE 100 MG TABLET PO (08:25)
[2019-12-06] MEDS: MULTIVITAMIN 1 TABLET 1 TAB PO (08:26)
[2019-12-06] MEDS: FOLIC ACID 1 MG TABLET PO (08:26)
[2019-12-06] MEDS: LORazepam 0.5 MG TABLET PO ×3 (08:26→20:08)
--- NOTE | 2019-12-06 10:02 | PC.NURSE ---
Addendum entered by Trena Trevizo R.N. 12/06/19 14:57: Patient's CIWA 9 this afternoon (visible tremors, anxiety, restlessness). Medicated with 1 mg IV Lorazepam per CIWA protocol. CIWA score at reassessment was down to 2 with patient less anxious and tremors no longer visible. Ambulated down hallway with this quality analyst/technical writer per his initiative, to main nurses station and back, using cane. A bit unsteady on his feet, but denies that this is a change from his usual ability. Assisted back to bed, alarm active. Blinds opened per patient request. Continues to call appropriately. Call light and belongings within reach. Addendum entered by Trena Trevizo R.N. 12/06/19 11:23: Called C/O 8/10 abd pain, states he thinks it might be related to eating. Appeared uncomfortable. Also reported 7/10 pain in BLE's. Medicated with IV Dilaudid per e-mar. Offered Tylenol but patient did not want to take any pills at this time. Denied other needs/concerns. Light in reach, bed alarm on. Original Note: Shift summary- Alert and oriented X3. C/O being really hungry first thing this morning and was asking when he could eat. BT+ X4 quadrants, flatus+. Abd soft, nontender. Discussed w/ Dr Saleh who ordered a heart healthy diet. Patient tolerated breakfast without N/V, although didn't end up being able to eat as much as he thought he would. Lungs CTA, HRR. CIWA score 1 (very mild nausea). Seizure precautions in place. Reported 7/10 chronic pain in BLE's, medicated with scheduled Oxycodone for the same. IVF per orders, site in L FA WNL. Able to make needs known and has been calling appropriately. Light and belongings within reach, bed alarm on.
[2019-12-06] MEDS: ACETAMINOPHEN 325 MG TABLET 650 MG PO (11:15)
[2019-12-06 12:27] LABS: BUN Creatinine Ratio 17.1 (6-22); Blood Urea Nitrogen 13 mg/dL (9-20); Calcium 8.2 mg/dL (8.4-10.2); Carbon Dioxide 32 mmol/L (22-32); Chloride 83 mmol/L (98-107); Estimated Glomerular Filt Rate > 60.0 mL/min (>60); Glucose 82 mg/dL (70-100); HEMOLYSIS < 15 (0-50); Potassium 2.9 mmol/L (3.4-5.1); Sodium 124 mmol/L (137-145)
[2019-12-06] MEDS: FLUTICASONE 110MCG HFA 120 PUFF INH ×2 (12:44→20:08)
[2019-12-06] MEDS: ALBUTEROL HFA 200 PUFF/18 GM INH (COVID POS/VENT PTS) INH (12:44)
[2019-12-06] MEDS: POTASSIUM CHLORIDE 20 MEQ TAB 40 MEQ PO (13:05)
[2019-12-06] MEDS: LORazepam 2 MG/ML INJ IV ×2 (13:18→22:31)
--- NOTE | 2019-12-06 13:32 | CM.DANOTE ---
DCP/Assessment: Reviewed chart. Patient is a 39yr old male admitted to [facility] with vomiting the last few days. PCP is Dr. Naqvi. Primary payor is 1)[facility] 2)Medicaid. Met with patient explained CM/SW role. Patient in bed at time of visit. Patient complains of pain and stress related to equipment/hospital bed. RN aware of possible issues. Unsure if it is the bed? Patient currently being monitored for alcohol w/d symptoms. Patient reports to WHIPPED TOPPING SUPERVISOR that he drinks does drink. Patient denies drinking daily. Last drink was approximately 4 days ago. Patient's drink of choice is tequila. He adds that when he does drink it is 1 pint per day. Patient reports that he is familiar with being sober. Patient recalls being sober in 2012 thru ? Patient unsure of length of time but does report that it was over a year. Patient requesting to postpone the rest of assessment because he is not feeling well. WHIPPED TOPPING SUPERVISOR agreed. P: Home when stable? Patient I in ADL's and resides [place]Fat[place] BRITTANY Galan Discharge Planning/Care Management CM Discharge Assessment Start: 12/06/19 13:03 Freq: Status: Active Protocol: Document 12/06/19 13:04 KJS (Rec: 12/06/19 13:32 KJS [id number]) Discharge Planning Assessment Assigned Lieutenant General BRITTANY aGlan Contact Information Fatuma Sabillon (significant other ) # [phone] Advance Directives? No History Provided By Patient,Medical Record Prior Living Arrangements Mobile home Household Members significant other,other Independent with ADL's Yes Is patient alert and oriented? Yes Comment D/C needs unknown. Met with patient today. Patient currently under [facility] protocol. Discharge Plan Home Transportation Arrangement Unsure at this time. If patient plan is home with home health No : Has signed face to face form been completed? Whiteboard Updated in Patient Room with Yes name and ext. # of Lieutenant General Review Status In Process Next Review Type Continued Stay Review
--- NOTE | 2019-12-06 15:25 | P.PN_ITS ---
Subjective Subjective Date Patient Seen: 12/06/19 Time Patient Seen: 11:30 Interval history: Anand Fulton is a 39 y.o. male with a history of chronic pain and opiate dependency, alcoholism, b12 deficiency and bilateral pulmonary embolisms diagnosed and treated since August of this year who was admitted with nausea/vomiting and hyponatremia. patient denies further nausea or emesis today, and was hungry this morning but was not able to tolerate much intake. He denies any chest pain, shortness of breath, or lower extremity edema. He has not had a drink of alcohol for the past 5 days. His transaminase levels have increased slightly this morning. His B12 level yesterday was unremarkable. As was a TSH. His sodium has improved slowly to 124 this afternoon on IV fluids, And his symptoms continue to improve as well. Will continue IV fluids and diet as tolerated. He could possibly go home as early as tomorrow if his sodium level improves to close to normal. Exam Vital Signs (past 8 hours): - 12/06/19 09:58 12/06/19 11:05 12/06/19 13:15 Temperature 97.8 F 97.4 F L Pulse Rate 71 83 87 Respiratory Rate 18 18 16 Blood Pressure 139/81 117/67 Pulse Oximetry 97 97 98 12/06/19 13:49 Temperature Pulse Rate 91 H Respiratory Rate 16 Blood Pressure 136/72 Pulse Oximetry Oxygen Delivery Method Room Air Oxygen Flow Rate 0 Narrative Exam Narrative: GENERAL APPEARANCE: Well developed, well nourished, in no acute distress. SKIN: Inspection of the skin reveals no rashes, ulcerations or petechiae. HEENT: Normocephalic atraumatic, extraocular muscles are intact, oropharynx is clear and mucous membranes are moist, neck is supple without adenopathy NECK: Supple and symmetric. There was no thyroid enlargement, and no tenderness, or masses were felt. CHEST: Normal AP diameter and normal contour without any kyphoscoliosis. LUNGS: Auscultation of the lungs revealed no wheezes, rhonchi, or rales. CARDIOVASCULAR: There was a regular rate and rhythm without any murmurs, gallops, rubs. Peripheral pulses were 2+ and symmetric. ABDOMEN: Soft and nontender with normal bowel sounds. No ascites was noted. MUSCULOSKELETAL: There was no tenderness or effusions noted. Muscle strength and tone were normal. EXTREMITIES: No cyanosis, clubbing or edema. NEUROLOGIC: Alert and oriented x 3. Normal affect. Gait was normal. Strength is +5/5 in the Upper Extremities and Lower Extremities Bilaterally. Sensation to touch was normal. Objective Labs Result Diagrams: 12/06/19 06:03 12/06/19 12:10 Labs: Laboratory Results - last 24 hr 12/05/19 12/05/19 12/05/19 15:50 15:50 15:50 WBC 6.1 RBC 4.65 Hgb 15.8 Hct 43.7 MCV 94.1 MCH 34.1 H MCHC 36.3 H RDW 14.3 Plt Count 149 L Neut % (Auto) 67.3 Lymph % (Auto) 19.5 L [place] % (Auto) 12.0 Eos % (Auto) 0.6 L Baso % (Auto) 0.6 Neut # (Auto) 4100 Lymph # (Auto) 1200 [place] # (Auto) 700 Eos # (Auto) 0 Baso # (Auto) 0 Sodium 115 L* Potassium 3.3 L Chloride 73 L* Carbon Dioxide 18 L BUN 18 Creatinine 0.79 Estimated GFR > 60.0 BUN/Creatinine Ratio 22.8 H Glucose 82 Calcium 9.1 Magnesium Total Bilirubin 1.9 H AST 299 H ALT 230 H Alkaline Phosphatase 68 Ammonia Total Protein 7.2 Albumin 4.7 Globulin 2.5 Albumin/Globulin Ratio 1.9 Lipase 303 H Vitamin B12 TSH Urine Color Urine Appearance Urine pH Ur Specific [place] Urine Protein Urine Glucose (UA) Urine Ketones Urine Occult Blood Urine Nitrate Urine Bilirubin Ur Bilirubin Confirm Urine Urobilinogen Ur Leukocyte Esterase Urine RBC Urine WBC Ur Squamous Epith Cells Urine Bacteria Ur Culture Indicated? U Opiates 300ng/mL cut Ur Oxycodone Screen Urine Methadone Screen Ur Barbiturates Screen U Tricyclic Antidepress Ur Phencyclidine Scrn Ur Amphetamines Screen U Methamphetamines Scrn Ur MDMA Scrn (Ecstasy) U Benzodiazepines Scrn Urine Cocaine Screen U Marijuana (THC) Screen Ethyl Alcohol COVID-19 PCR 12/05/19 12/05/19 12/05/19 15:50 15:50 15:50 WBC RBC Hgb Hct MCV MCH MCHC RDW Plt Count Neut % (Auto) Lymph % (Auto) [place] % (Auto) Eos % (Auto) Baso % (Auto) Neut # (Auto) Lymph # (Auto) [place] # (Auto) Eos # (Auto) Baso # (Auto) Sodium Potassium Chloride Carbon Dioxide BUN Creatinine Estimated GFR BUN/Creatinine Ratio Glucose Calcium Magnesium 1.7 Total Bilirubin AST ALT Alkaline Phosphatase Ammonia Total Protein Albumin Globulin Albumin/Globulin Ratio Lipase Vitamin B12 713 TSH 0.897 Urine Color Urine Appearance Urine pH Ur Specific [place] Urine Protein Urine Glucose (UA) Urine Ketones Urine Occult Blood Urine Nitrate Urine Bilirubin Ur Bilirubin Confirm Urine Urobilinogen Ur Leukocyte Esterase Urine RBC Urine WBC Ur Squamous Epith Cells Urine Bacteria Ur Culture Indicated? U Opiates 300ng/mL cut Ur Oxycodone Screen Urine Methadone Screen Ur Barbiturates Screen U Tricyclic Antidepress Ur Phencyclidine Scrn Ur Amphetamines Screen U Methamphetamines Scrn Ur MDMA Scrn (Ecstasy) U Benzodiazepines Scrn Urine Cocaine Screen U Marijuana (THC) Screen Ethyl Alcohol 62 H COVID-19 PCR 12/05/19 12/05/19 12/05/19 17:05 20:30 20:30 WBC RBC Hgb Hct MCV MCH MCHC RDW Plt Count Neut % (Auto) Lymph % (Auto) [place] % (Auto) Eos % (Auto) Baso % (Auto) Neut # (Auto) Lymph # (Auto) [place] # (Auto) Eos # (Auto) Baso # (Auto) Sodium Potassium Chloride Carbon Dioxide BUN Creatinine Estimated GFR BUN/Creatinine Ratio Glucose Calcium Magnesium Total Bilirubin AST ALT Alkaline Phosphatase Ammonia Total Protein Albumin Globulin Albumin/Globulin Ratio Lipase Vitamin B12 TSH Urine Color Dark yellow Urine Appearance Clear Urine pH 5.5 Ur Specific [place] 1.020 Urine Protein Trace H Urine Glucose (UA) Negative Urine Ketones 3+ H Urine Occult Blood Trace-intact Urine Nitrate Negative Urine Bilirubin 1+ H Ur Bilirubin Confirm Positive H Urine Urobilinogen 0.2 Ur Leukocyte Esterase Negative Urine RBC None seen Urine WBC None seen Ur Squamous Epith Cells 0-1 /hpf Urine Bacteria None seen Ur Culture Indicated? Cult not indicated U Opiates 300ng/mL cut Negative Ur Oxycodone Screen Negative Urine Methadone Screen Negative Ur Barbiturates Screen Negative U Tricyclic Antidepress Negative Ur Phencyclidine Scrn Negative Ur Amphetamines Screen Negative U Methamphetamines Scrn Negative Ur MDMA Scrn (Ecstasy) Negative U Benzodiazepines Scrn Negative Urine Cocaine Screen Negative U Marijuana (THC) Screen Negative Ethyl Alcohol COVID-19 PCR Negative 12/05/19 12/06/19 12/06/19 21:37 02:00 06:03 WBC 4.2 L RBC 4.15 L Hgb 13.9 Hct 39.4 L MCV 95.0 MCH 33.4 MCHC 35.2 RDW 14.3 Plt Count 117 L Neut % (Auto) 55.5 Lymph % (Auto) 31.7 [place] % (Auto) 9.2 Eos % (Auto) 2.6 Baso % (Auto) 1.0 Neut # (Auto) 2300 Lymph # (Auto) 1300 [place] # (Auto) 400 Eos # (Auto) 100 Baso # (Auto) 0 Sodium 120 L Potassium 3.5 Chloride 79 L Carbon Dioxide 32 BUN 14 Creatinine 0.89 Estimated GFR > 60.0 BUN/Creatinine Ratio 15.7 Glucose 82 Calcium 8.5 Magnesium Total Bilirubin AST ALT Alkaline Phosphatase Ammonia < 9 L Total Protein Albumin Globulin Albumin/Globulin Ratio Lipase Vitamin B12 TSH Urine Color Urine Appearance Urine pH Ur Specific [place] Urine Protein Urine Glucose (UA) Urine Ketones Urine Occult Blood Urine Nitrate Urine Bilirubin Ur Bilirubin Confirm Urine Urobilinogen Ur Leukocyte Esterase Urine RBC Urine WBC Ur Squamous Epith Cells Urine Bacteria Ur Culture Indicated? U Opiates 300ng/mL cut Ur Oxycodone Screen Urine Methadone Screen Ur Barbiturates Screen U Tricyclic Antidepress Ur Phencyclidine Scrn Ur Amphetamines Screen U Methamphetamines Scrn Ur MDMA Scrn (Ecstasy) U Benzodiazepines Scrn Urine Cocaine Screen U Marijuana (THC) Screen Ethyl Alcohol COVID-19 PCR 12/06/19 12/06/19 06:03 12:10 WBC RBC Hgb Hct MCV MCH MCHC RDW Plt Count Neut % (Auto) Lymph % (Auto) [place] % (Auto) Eos % (Auto) Baso % (Auto) Neut # (Auto) Lymph # (Auto) [place] # (Auto) Eos # (Auto) Baso # (Auto) Sodium 121 L 124 L Potassium 3.3 L 2.9 L Chloride 81 L 83 L Carbon Dioxide 31 32 BUN 12 13 Creatinine 0.85 0.76 Estimated GFR > 60.0 > 60.0 BUN/Creatinine Ratio 14.1 17.1 Glucose 78 82 Calcium 8.3 L 8.2 L Magnesium 2.7 H Total Bilirubin 2.2 H AST 401 H ALT 242 H Alkaline Phosphatase 61 Ammonia Total Protein 6.1 L Albumin 3.8 Globulin 2.3 Albumin/Globulin Ratio 1.7 Lipase Vitamin B12 TSH Urine Color Urine Appearance Urine pH Ur Specific [place] Urine Protein Urine Glucose (UA) Urine Ketones Urine Occult Blood Urine Nitrate Urine Bilirubin Ur Bilirubin Confirm Urine Urobilinogen Ur Leukocyte Esterase Urine RBC Urine WBC Ur Squamous Epith Cells Urine Bacteria Ur Culture Indicated? U Opiates 300ng/mL cut Ur Oxycodone Screen Urine Methadone Screen Ur Barbiturates Screen U Tricyclic Antidepress Ur Phencyclidine Scrn Ur Amphetamines Screen U Methamphetamines Scrn Ur MDMA Scrn (Ecstasy) U Benzodiazepines Scrn Urine Cocaine Screen U Marijuana (THC) Screen Ethyl Alcohol COVID-19 PCR Assessment & Plan Assessment & Plan narrative: Anand Fulton will be admitted as an inpatient for further treatment and management of persistent nausea and vomiting, alcohol withdrawal, and continuance of treatment of a bilateral pulmonary embolism. 1. Nausea and vomiting, acute, present on admission -IV zofran prn -IVF with banana bag -can resume diet. -unclear if this was the etiology of his hyponatremia Or if hyponatremia caused his nausea and vomiting. He is now improving with IV fluids and his symptoms are improved. If not hyponatremia related other possible etiologies are pancreatitis given his History of alcohol use and mildly elevated lipase of 303 on admission that resolved by the time he presented, or a viral gastroenteritis. 2. Acute severe hyponatremia, prseent on admission. -NS at 175 ml/hour, repeat lab values slowly increasing now to 124. Continue IVF and will repeat in the AM. 3. Hypokalemia, active - likely due to nausea,vomiting and dehydration. Repleted orally today. 4.Bilateral PE, chronic, present on admission since August 2019 -continue home dose of apixaban 5 mg po bid 5. alcohol abuse, chronic, present on admission -CIWA has been zero to 1, patient denies prior withdrawal symptoms. Will continue CIWA protocol and as needed Ativan. Can likely discontinue tomorrow if he still remains admitted. 6.Chronic pain, present on admission -Continue home dose of ativan 0.5 mg and oxycodone 5 mg po both tid -IV dilaudid 2 mg q 3 hours as needed for pain, de-escalate daily VTE prophylaxis: Currently being treated for a bilateral pulmonary embolism with apixaban 5 mg p.o. twice daily Consults: none Dispo: probable discharge to home once medically stable, possibly in 1-2 days. Admitted under inpatient status. Code Status: full code as discussed with patient COVID-19 COVID-19 status: Negative Quality VTE Deep Vein Thrombosis/Pulmonary Embolism Present on Admission: Yes
[2019-12-06] MEDS: SENNOSIDES 8.6 MG TABLET PO (20:09)
[2019-12-07] VITALS (8 sets, daily range): BP systolic 119–143; BP diastolic 74–91; PULSE 86–101; RESP 16–20; TEMP 36.3–37.1; O2SAT 98–100
[2019-12-07] MEDS: HYDROMORPHONE 1 MG INJ IV ×7 (00:06→22:30)
[2019-12-07] MEDS: SODIUM CHLORIDE 0.9% 1,000 ML 150 ML IV ×4 (02:57→22:34)
[2019-12-07] MEDS: MULTIVITAMIN 1 TABLET 1 TAB PO (08:24)
[2019-12-07] MEDS: FOLIC ACID 1 MG TABLET PO (08:24)
[2019-12-07] MEDS: PANTOPRAZOLE 20 MG TABLET PO (08:24)
[2019-12-07] MEDS: lisinopriL 20 MG TABLET PO (08:24)
[2019-12-07] MEDS: THIAMINE 100 MG TABLET PO (08:24)
[2019-12-07] MEDS: DOCUSATE 100 MG CAPSULE PO ×2 (08:24→21:15)
[2019-12-07] MEDS: LORazepam 0.5 MG TABLET PO ×3 (08:25→21:14)
[2019-12-07] MEDS: OXYCODONE IR 5 MG TABLET PO ×3 (08:25→21:14)
[2019-12-07] MEDS: APIXABAN 5 MG TABLET PO ×2 (08:25→21:14)
[2019-12-07 09:10] LABS: Add Manual Diff / Slide Review NO; Basophils Absolute Auto 0 /uL (0-100); Basophils Percent Auto 0.7 % (0-2); Eosinophils Absolute Auto 200 /uL (0-450); Eosinophils Percent Auto 4.3 % (2-4); Hematocrit 36.1 % (41-53); Hemoglobin 12.8 g/dL (13.5-17.5); Lymphocytes Absolute Auto 1300 /uL (1100-4500); Lymphocytes Percent Auto 31.5 % (25-40); Mean Corpuscular HGB Conc 35.3 % (30-36); Mean Corpuscular Hemoglobin 33.8 PG (26-34); Mean Corpuscular Volume 95.7 fL (80-100); Monocytes Absolute Auto 300 /uL (0-900); Monocytes Percent Auto 8.1 % (3-14); Neutrophils Absolute Auto 2200 /uL (1500-7000); Neutrophils Percent Auto 55.4 % (50-75); Platelet Count 106 X10^3/uL (150-400); Red Blood Cell Count 3.78 X10^6/uL (4.5-5.9)
[2019-12-07 09:22] LABS: BUN Creatinine Ratio 13.4 (6-22); Blood Urea Nitrogen 9 mg/dL (9-20); Calcium 8.3 mg/dL (8.4-10.2); Carbon Dioxide 28 mmol/L (22-32); Chloride 96 mmol/L (98-107); Estimated Glomerular Filt Rate > 60.0 mL/min (>60); Glucose 94 mg/dL (70-100); HEMOLYSIS < 15 (0-50); Potassium 3.1 mmol/L (3.4-5.1); Sodium 131 mmol/L (137-145)
[2019-12-07 09:23] LABS: Alanine Aminotransferase 352 IU/L (<50); Albumin 3.3 g/dL (3.5-5.0); Albumin Globulin Ratio 1.6 (1.0-2.8); Alkaline Phosphatase 64 U/L (38-126); Aspartate Aminotransferase 607 IU/L (17-59); Bilirubin Unconjugated 0.7 mg/dL (0.0-1.1); Globulin 2.1 g/dL (1.7-4.1); HEMOLYSIS < 15 (0-50); Magnesium 2.1 mg/dL (1.6-2.3); Total Protein 5.4 g/dL (6.3-8.2)
[2019-12-07] MEDS: ALBUTEROL HFA 200 PUFF/18 GM INH (COVID POS/VENT PTS) INH (09:24)
[2019-12-07] MEDS: LORazepam 2 MG/ML INJ IV ×3 (09:26→22:33)
[2019-12-07] MEDS: FLUTICASONE 110MCG HFA 120 PUFF INH (09:27)
[2019-12-07] MEDS: ONDANSETRON 4 MG/2 ML INJ IV (09:37)
--- NOTE | 2019-12-07 09:37 | DI.US.S_ITS ---
PROCEDURE: US ABDOMEN COMPLETE INDICATIONS: ETOH; RISING LFTS TECHNIQUE: Real-time scanning was performed of the abdominal and retroperitoneal organs, with image documentation. COMPARISON: [facility], US, US ABDOMEN LIMITED, 08/06/2019, 20:00. [facility], CT, CT ABDOMEN PELVIS W CON, 08/07/2019, 8:31. FINDINGS: Liver: Liver is normal in size and homogeneous in echotexture. Gallbladder: Gallbladder is normal in sonographic appearance without gallstones, gallbladder wall thickening, pericholecystic fluid, or abnormal sonographic Dumont's. Biliary ducts: Intrahepatic bile ducts are non-dilated. Extrahepatic bile duct caliber measures 7 mm. Normal is 6-7 mm or less in diameter, or 10 mm or less post-cholecystectomy. Pancreas: Visualized portions of the pancreas are sonographically normal. Spleen: Spleen is normal in size and homogeneous in echotexture. Kidneys: Kidneys are normal in size and echotexture. Right kidney measures 9.8 cm long; left kidney measures 10.6 cm long. No hydronephrosis or nephrolithiasis. No solid masses. Aorta: Visualized aorta is normal in caliber at less than 3 cm. Iliacs: Proximal common iliac arteries are normal in caliber at less than 2.5 cm. IVC: Intrahepatic inferior vena cava is patent. Miscellaneous: No free abdominal fluid. IMPRESSION: Abdomen without acute sonographic abnormalities. Stable sonographic appearance of the liver without focal intrahepatic abnormalities seen. Dictated by: Carlos Patel M.D. on 12/07/2019 at 10:57 Approved by: Carlos Patel M.D. on 12/07/2019 at 11:04
--- NOTE | 2019-12-07 09:42 | P.PN_ITS ---
Subjective Subjective Date Patient Seen: 12/07/19 Time Patient Seen: 09:42 Interval history: Anand Fulton is a 39 y.o. male with a history of chronic pain and opiate dependency, alcoholism, b12 deficiency and bilateral pulmonary embolisms diagnosed and treated since August of this year who was admitted with nausea/vomiting and hyponatremia. patient denies further nausea or emesis today, and has been eating. Overnight he endorsed some hallucinations and was mildly tremulous and anxious this morning. He was given ativan per CIWA protocol. His sodium has improved to 131 this AM. LFTs also continue to rise. Exam Vital Signs (past 8 hours): - 12/07/19 05:28 12/07/19 08:56 12/07/19 09:33 Temperature 97.3 F L 98.8 F Pulse Rate 86 93 H 88 Respiratory Rate 16 16 19 Blood Pressure 143/91 H 140/84 Pulse Oximetry 100 98 98 Oxygen Delivery Method Room Air Oxygen Flow Rate 0 Narrative Exam Narrative: GENERAL APPEARANCE: Well developed, well nourished, in no acute distress. SKIN: Inspection of the skin reveals no rashes, ulcerations or petechiae. HEENT: Normocephalic atraumatic, extraocular muscles are intact, oropharynx is clear and mucous membranes are moist, neck is supple without adenopathy NECK: Supple and symmetric. There was no thyroid enlargement, and no tenderness, or masses were felt. CHEST: Normal AP diameter and normal contour without any kyphoscoliosis. LUNGS: Auscultation of the lungs revealed no wheezes, rhonchi, or rales. CARDIOVASCULAR: There was a regular rate and rhythm without any murmurs, gallops, rubs. Peripheral pulses were 2+ and symmetric. ABDOMEN: Soft and nontender with normal bowel sounds. No ascites was noted. MUSCULOSKELETAL: There was no tenderness or effusions noted. Muscle strength and tone were normal. EXTREMITIES: No cyanosis, clubbing or edema. NEUROLOGIC: Alert and oriented x 3. Normal affect. Gait was normal. Strength is +5/5 in the Upper Extremities and Lower Extremities Bilaterally. Sensation to touch was normal. Objective Labs Result Diagrams: 12/07/19 08:29 12/07/19 08:29 Labs: Laboratory Results - last 24 hr 12/06/19 12/07/19 12/07/19 12:10 08:29 08:29 WBC 4.0 L RBC 3.78 L Hgb 12.8 L Hct 36.1 L MCV 95.7 MCH 33.8 MCHC 35.3 RDW 14.0 Plt Count 106 L Neut % (Auto) 55.4 Lymph % (Auto) 31.5 [place] % (Auto) 8.1 Eos % (Auto) 4.3 H Baso % (Auto) 0.7 Neut # (Auto) 2200 Lymph # (Auto) 1300 [place] # (Auto) 300 Eos # (Auto) 200 Baso # (Auto) 0 Sodium 124 L 131 L Potassium 2.9 L 3.1 L Chloride 83 L 96 L Carbon Dioxide 32 28 BUN 13 9 Creatinine 0.76 0.67 Estimated GFR > 60.0 > 60.0 BUN/Creatinine Ratio 17.1 13.4 Glucose 82 94 Calcium 8.2 L 8.3 L Magnesium Total Bilirubin Conjugated Bilirubin Unconjugated Bilirubin AST ALT Alkaline Phosphatase Total Protein Albumin Globulin Albumin/Globulin Ratio 12/07/19 08:29 WBC RBC Hgb Hct MCV MCH MCHC RDW Plt Count Neut % (Auto) Lymph % (Auto) [place] % (Auto) Eos % (Auto) Baso % (Auto) Neut # (Auto) Lymph # (Auto) [place] # (Auto) Eos # (Auto) Baso # (Auto) Sodium Potassium Chloride Carbon Dioxide BUN Creatinine Estimated GFR BUN/Creatinine Ratio Glucose Calcium Magnesium 2.1 Total Bilirubin 1.0 Conjugated Bilirubin 0.0 Unconjugated Bilirubin 0.7 AST 607 H ALT 352 H Alkaline Phosphatase 64 Total Protein 5.4 L Albumin 3.3 L Globulin 2.1 Albumin/Globulin Ratio 1.6 Assessment & Plan Assessment & Plan narrative: Anand Fulton is a 39 y.o. male with a history of ch ronic pain and opiate dependency, alcoholism, b12 deficiency and bilateral pulmonary embolisms diagnosed and treated since August of this year who was admitted with nausea/vomiting and hyponatremia. 1. Nausea and vomiting, acute, present on admission -IV zofran prn -IVF with banana bag -can resume diet. -unclear if this was the etiology of his hyponatremia Or if hyponatremia caused his nausea and vomiting. He is now improving with IV fluids and his symptoms are improved. If not hyponatremia related other possible etiologies are pancreatitis given his History of alcohol use and mildly elevated lipase of 303 on admission that resolved by the time he presented, or a viral gastroenteritis. 2. Acute severe hyponatremia, prseent on admission. -NS at 175 ml/hour, repeat lab values slowly increasing now to 131. Continue IVF and will repeat in the AM. 3. Hypokalemia, active - likely due to nausea,vomiting and dehydration. Repleted orally today. 4.Bilateral PE, chronic, present on admission since August 2019 -continue home dose of apixaban 5 mg po bid 5. alcohol withdrawal, chronic, present on admission -patient denies prior withdrawal symptoms. Endorsed hallucinations overnight and now with mild tremulousness and anxiety. Will continue CIWA protocol. He is alert and oriented currently. 6.Chronic pain, present on admission -Continue home dose of ativan 0.5 mg and oxycodone 5 mg po both tid -IV dilaudid 2 mg q 3 hours as needed for pain, de-escalate daily 7. Alcoholic hepatitis, -AST of 607 and ALT 352, increased since admission. Will continue to follow. will obtain abdominal ultrasound. VTE prophylaxis: Currently being treated for a bilateral pulmonary embolism with apixaban 5 mg p.o. twice daily Consults: none Dispo: probable discharge to home once medically stable, possibly in 1-2 days. Admitted under inpatient status. Code Status: full code as discussed with patient Quality VTE Deep Vein Thrombosis/Pulmonary Embolism Present on Admission: Yes
[2019-12-07] MEDS: POTASSIUM CHLORIDE 20 MEQ TAB 40 MEQ PO (12:53)
[2019-12-07] MEDS: SENNOSIDES 8.6 MG TABLET PO (21:15)
[2019-12-08] VITALS (10 sets, daily range): BP systolic 118–154; BP diastolic 75–87; PULSE 65–93; RESP 14–20; TEMP 36.4–37.2; O2SAT 94–100
[2019-12-08] MEDS: LORazepam 2 MG/ML INJ IV ×2 (02:02→09:13)
[2019-12-08] MEDS: HYDROMORPHONE 1 MG INJ IV ×7 (03:27→23:27)
[2019-12-08] MEDS: SODIUM CHLORIDE 0.9% 1,000 ML 150 ML IV ×2 (03:50→09:19)
[2019-12-08 07:24] LABS: Add Manual Diff / Slide Review NO; Basophils Absolute Auto 0 /uL (0-100); Basophils Percent Auto 1.1 % (0-2); Eosinophils Absolute Auto 400 /uL (0-450); Eosinophils Percent Auto 9.4 % (2-4); Hematocrit 37.4 % (41-53); Hemoglobin 13.1 g/dL (13.5-17.5); Lymphocytes Absolute Auto 1800 /uL (1100-4500); Lymphocytes Percent Auto 47.9 % (25-40); Mean Corpuscular HGB Conc 34.9 % (30-36); Mean Corpuscular Hemoglobin 33.7 PG (26-34); Mean Corpuscular Volume 96.4 fL (80-100); Monocytes Absolute Auto 300 /uL (0-900); Monocytes Percent Auto 8.8 % (3-14); Neutrophils Absolute Auto 1300 /uL (1500-7000); Neutrophils Percent Auto 32.8 % (50-75); Platelet Count 134 X10^3/uL (150-400); Red Blood Cell Count 3.87 X10^6/uL (4.5-5.9); White Blood Cell Count 3.8 X10^3/uL (4.5-11.0)
[2019-12-08 07:30] LABS: INR 0.9 (0.9-1.3); Prothrombin Time 10.6 SECONDS (10.1-12.7)
[2019-12-08 07:33] LABS: PTT Partial Thromboplastin Tim 29 SECONDS (26.4-36.2)
[2019-12-08 07:35] LABS: Alanine Aminotransferase 348 IU/L (<50); Albumin 3.2 g/dL (3.5-5.0); Albumin Globulin Ratio 1.4 (1.0-2.8); Alkaline Phosphatase 73 U/L (38-126); Aspartate Aminotransferase 442 IU/L (17-59); BUN Creatinine Ratio 6.2 (6-22); Bilirubin Total 0.5 mg/dL (0.2-1.3); Bilirubin Unconjugated 0.3 mg/dL (0.0-1.1); Blood Urea Nitrogen 4 mg/dL (9-20); Calcium 8.6 mg/dL (8.4-10.2); Carbon Dioxide 30 mmol/L (22-32); Chloride 104 mmol/L (98-107); Estimated Glomerular Filt Rate > 60.0 mL/min (>60); Globulin 2.3 g/dL (1.7-4.1); Glucose 118 mg/dL (70-100); HEMOLYSIS < 15 (0-50); Potassium 3.2 mmol/L (3.4-5.1); Sodium 135 mmol/L (137-145); Total Protein 5.5 g/dL (6.3-8.2)
[2019-12-08] MEDS: PANTOPRAZOLE 20 MG TABLET PO (08:57)
[2019-12-08] MEDS: MULTIVITAMIN 1 TABLET 1 TAB PO (08:57)
[2019-12-08] MEDS: DOCUSATE 100 MG CAPSULE PO ×2 (08:57→20:34)
[2019-12-08] MEDS: APIXABAN 5 MG TABLET PO ×2 (08:57→20:35)
[2019-12-08] MEDS: THIAMINE 100 MG TABLET PO (08:57)
[2019-12-08] MEDS: FOLIC ACID 1 MG TABLET PO (08:58)
[2019-12-08] MEDS: OXYCODONE IR 5 MG TABLET PO ×3 (08:58→21:26)
[2019-12-08] MEDS: POTASSIUM CHLORIDE 20 MEQ TAB 40 MEQ PO (08:58)
[2019-12-08] MEDS: lisinopriL 20 MG TABLET PO (08:59)
[2019-12-08] MEDS: LORazepam 0.5 MG TABLET PO ×3 (08:59→20:35)
[2019-12-08] MEDS: ONDANSETRON 4 MG/2 ML INJ IV (09:13)
[2019-12-08] MEDS: ACETAMINOPHEN 325 MG TABLET 650 MG PO (09:13)
[2019-12-08] MEDS: FLUTICASONE 110MCG HFA 120 PUFF INH ×2 (10:05→20:12)
--- NOTE | 2019-12-08 11:07 | PM.PN.1 ---
Subjective Subjective Date Patient Seen: 12/08/19 Time Patient Seen: 11:07 Interval history: Anand Fulton is a 39 y.o. male with a history of chronic pain and opiate dependency, alcoholism, b12 deficiency and bilateral pulmonary embolisms diagnosed and treated since August of this year who was admitted with nausea/vomiting and hyponatremia. patient denies further nausea or emesis today, and has been eating. Overnight he endorsed some hallucinations with bugs hanging from the ceiling and was mildly tremulous and anxious this morning. He was given ativan per CIWA protocol. His sodium has improved to normal AM. LFTs are improved and patient tolerates a diet with minimal discomfort. Exam Vital Signs (past 8 hours): - 12/08/19 03:13 12/08/19 03:33 12/08/19 07:50 Temperature 98.1 F 97.9 F Pulse Rate 82 93 H 78 Respiratory Rate 16 14 20 Blood Pressure 135/82 133/75 154/87 H Pulse Oximetry 99 97 12/08/19 10:05 12/08/19 10:43 Temperature Pulse Rate 82 80 Respiratory Rate 18 16 Blood Pressure 127/87 Pulse Oximetry 96 Oxygen Delivery Method Room Air Oxygen Flow Rate 0 Narrative Exam Narrative: GENERAL APPEARANCE: Well developed, well nourished, in no acute distress. SKIN: Inspection of the skin reveals no rashes, ulcerations or petechiae. HEENT: Normocephalic atraumatic, extraocular muscles are intact, oropharynx is clear and mucous membranes are moist, neck is supple without adenopathy NECK: Supple and symmetric. There was no thyroid enlargement, and no tenderness, or masses were felt. CHEST: Normal AP diameter and normal contour without any kyphoscoliosis. LUNGS: Auscultation of the lungs revealed no wheezes, rhonchi, or rales. CARDIOVASCULAR: There was a regular rate and rhythm without any murmurs, gallops, rubs. Peripheral pulses were 2+ and symmetric. ABDOMEN: Soft and nontender with normal bowel sounds. No ascites was noted. MUSCULOSKELETAL: There was no tenderness or effusions noted. Muscle strength and tone were normal. EXTREMITIES: No cyanosis, clubbing or edema. NEUROLOGIC: Alert and oriented x 3. Normal affect. Strength is +5/5 in the Upper Extremities and Lower Extremities Bilaterally. Sensation to touch was normal. Mild tongue fasciculations and tremulousness. Objective Labs Result Diagrams: 12/08/19 06:53 12/08/19 06:53 Labs: Laboratory Results - last 24 hr 12/08/19 12/08/19 12/08/19 06:53 06:53 06:53 WBC 3.8 L RBC 3.87 L Hgb 13.1 L Hct 37.4 L MCV 96.4 MCH 33.7 MCHC 34.9 RDW 14.0 Plt Count 134 L Neut % (Auto) 32.8 L D Lymph % (Auto) 47.9 H [place] % (Auto) 8.8 Eos % (Auto) 9.4 H Baso % (Auto) 1.1 Neut # (Auto) 1300 L Lymph # (Auto) 1800 [place] # (Auto) 300 Eos # (Auto) 400 Baso # (Auto) 0 PT 10.6 INR 0.9 APTT 29 D Sodium 135 L Potassium 3.2 L Chloride 104 Carbon Dioxide 30 BUN 4 L Creatinine 0.65 L Estimated GFR > 60.0 BUN/Creatinine Ratio 6.2 Glucose 118 H Calcium 8.6 Magnesium 2.0 Total Bilirubin 0.5 Conjugated Bilirubin 0.0 Unconjugated Bilirubin 0.3 AST 442 H ALT 348 H Alkaline Phosphatase 73 Total Protein 5.5 L Albumin 3.2 L Globulin 2.3 Albumin/Globulin Ratio 1.4 Assessment & Plan Assessment & Plan narrative: Anand Fulton is a 39 y.o. male with a history of chronic pain and opiate dependency, alcoholism, b12 deficiency and bilateral pulmonary embolisms diagnosed and treated since August of this year who was admitted with nausea/vomiting and hyponatremia. 1. Nausea and vomiting, acute, present on admission, resolved -IV zofran prn -IVF with banana bag -can resume diet. -unclear if this was the etiology of his hyponatremia Or if hyponatremia caused his nausea and vomiting. He is now improving with IV fluids and his symptoms are improved. If not hyponatremia related other possible etiologies are pancreatitis given his History of alcohol use and mildly elevated lipase of 303 on admission that resolved by the time he presented, or a viral gastroenteritis. 2. Acute severe hyponatremia, prsesent on admission, resolved -continued on NS infusion until sodium normalized. Will stop IV fluids today. 3. Hypokalemia, active - likely due to nausea,vomiting and dehydration. Repleted orally today. 4. History of pulmonary emboli on anticoagulant therapy -continue home dose of apixaban 5 mg po bid 5. alcohol withdrawal, chronic, present on admission -patient denies prior withdrawal symptoms. Endorsed hallucinations overnight and mild tremulousness and anxiety. Will continue CIWA protocol and given continued symptoms started librium today. He is alert and oriented currently. 6.Chronic pain, present on admission -Continue home dose of ativan 0.5 mg and oxycodone 5 mg po both tid -IV dilaudid 2 mg q 3 hours as needed for pain, de-escalate daily 7. Alcoholic hepatitis, improved, present on admission. -Peaked AST of 607 and ALT 352 which have improved today. Will continue to follow. abdominal ultrasound was unremarkable. VTE prophylaxis: Currently being treated for a bilateral pulmonary embolism with apixaban 5 mg p.o. twice daily Consults: none Dispo: probable discharge to home once medically stable, possibly in 1-2 days. Admitted under inpatient status. Code Status: full code as discussed with patient Quality VTE Deep Vein Thrombosis/Pulmonary Embolism Present on Admission: Yes
[2019-12-08 11:30] LABS: HEMOLYSIS < 15 (0-50); Potassium 3.8 mmol/L (3.4-5.1)
[2019-12-08] MEDS: chlordiazePOXIDE 25 MG CAPSULE PO ×2 (12:55→19:10)
[2019-12-08] MEDS: CYANOCOBALAMIN (VITAMIN B-12) 500 MCG TABLET 1000 MCG PO (12:55)
[2019-12-08] MEDS: SODIUM CHLORIDE 0.9% FLUSH 10 ML IV (20:34)
[2019-12-08] MEDS: SENNOSIDES 8.6 MG TABLET PO (20:35)
[2019-12-09] VITALS: BP 132/74; PULSE 82; RESP 16; TEMP 37.2; O2SAT 99
[2019-12-09] MEDS: chlordiazePOXIDE 25 MG CAPSULE PO ×2 (00:22→05:57)
[2019-12-09] MEDS: HYDROMORPHONE 0.5 MG INJ IV ×3 (02:40→10:18)
--- NOTE | 2019-12-09 04:53 | PC.NURSE ---
PT is A and O x 4, VSS. Last CIWA = 5. Pt has been restless and tremulous, and requesting dilaudid for bilateral LE tingling exactly at the 3 hour vida. He is cooperative and calm.
[2019-12-09 05:48] VITALS: BP 131/92; PULSE 61; RESP 16; TEMP 36.5; O2SAT 100
[2019-12-09 05:55] VITALS: BP 131/92; PULSE 61
[2019-12-09] MEDS: cloNIDine 0.1 MG TABLET PO (05:55)
[2019-12-09] MEDS: ACETAMINOPHEN 325 MG TABLET 650 MG PO (05:56)
[2019-12-09 06:55] LABS: Add Manual Diff / Slide Review NO; Basophils Absolute Auto 0 /uL (0-100); Basophils Percent Auto 0.5 % (0-2); Eosinophils Absolute Auto 500 /uL (0-450); Eosinophils Percent Auto 11.4 % (2-4); Hematocrit 38.9 % (41-53); Hemoglobin 13.4 g/dL (13.5-17.5); Lymphocytes Absolute Auto 2400 /uL (1100-4500); Lymphocytes Percent Auto 52.1 % (25-40); Mean Corpuscular HGB Conc 34.4 % (30-36); Mean Corpuscular Hemoglobin 33.5 PG (26-34); Mean Corpuscular Volume 97.3 fL (80-100); Monocytes Absolute Auto 400 /uL (0-900); Monocytes Percent Auto 8.9 % (3-14); Neutrophils Absolute Auto 1300 /uL (1500-7000); Neutrophils Percent Auto 27.1 % (50-75); Platelet Count 180 X10^3/uL (150-400); Red Blood Cell Count 3.99 X10^6/uL (4.5-5.9); Red Cell Distribution Width 14.1 % (11.6-14.8); White Blood Cell Count 4.6 X10^3/uL (4.5-11.0)
[2019-12-09 07:30] VITALS: BP 109/78; PULSE 61; RESP 19; TEMP 37; O2SAT 100
[2019-12-09 07:41] LABS: PTT Partial Thromboplastin Tim 30 SECONDS (26.4-36.2)
[2019-12-09 07:44] LABS: Alanine Aminotransferase 498 IU/L (<50); Albumin 3.3 g/dL (3.5-5.0); Albumin Globulin Ratio 1.3 (1.0-2.8); Alkaline Phosphatase 80 U/L (38-126); Aspartate Aminotransferase 638 IU/L (17-59); BUN Creatinine Ratio 6.6 (6-22); Bilirubin Total 0.6 mg/dL (0.2-1.3); Bilirubin Unconjugated 0.3 mg/dL (0.0-1.1); Blood Urea Nitrogen 5 mg/dL (9-20); Calcium 8.8 mg/dL (8.4-10.2); Carbon Dioxide 31 mmol/L (22-32); Chloride 102 mmol/L (98-107); Estimated Glomerular Filt Rate > 60.0 mL/min (>60); Globulin 2.5 g/dL (1.7-4.1); Glucose 97 mg/dL (70-100); HEMOLYSIS 15 (0-50); Magnesium 1.8 mg/dL (1.6-2.3); Potassium 3.9 mmol/L (3.4-5.1); Sodium 133 mmol/L (137-145); Total Protein 5.8 g/dL (6.3-8.2)
[2019-12-09 08:33] VITALS: PULSE 73; RESP 18; O2SAT 99
[2019-12-09] MEDS: FLUTICASONE 110MCG HFA 120 PUFF INH (08:33)
--- NOTE | 2019-12-09 08:49 | PM.DS.1 ---
History of Present Illness History of Present Illness Date Patient Seen: 12/09/19 Time Patient Seen: 08:49 Chief complaint: vomiting past few days Narrative: As per JANNET Araya: Anand Fulton is a 39 y.o. male with a history of chronic pain and opiate dependency, alcoholism and bilateral pulmonary embolisms diagnosed and treated since August of this year presented to the Emergency Department with nausea for 4 days. He has not been able to take in fluids, food or oral medications. He has also not had a bm in 4 days. He denies shortness of breath, chest pain, has chronic back pain, and subacute spinal degeneration associated with a B12 deficiency. His B12 level is normal today. DVT diagnosed in August is due to what was thought to be immobility associated with his spinal condition. Patient is mildly febrile at 99.9, blood pressure 114/69, respiratory rate of 16, oxygen saturation 97% on room air, he weighs 79.3 kg with a BMI of 26.6. WBC is 6.1 RBC 4.65 hemoglobin 15.8 hematocrit 43.7, platelet count 149, sodium 115, potassium 3.3, chloride 73, bicarb 18, BUN 18, creatinine 0.79, GFR greater than 60, glucose is 82, magnesium 1.7, total bilirubin is 1.9, AST 299, ALT 230, alk-phos 68, ammonia level is normal at less than 9, lipase is 303, he does have ketones in his urine an elevated protein, urine bilirubin is 1+ no bacterial cells seen, alcohol level is elevated at 62, COVID-19 PCR is negative. Discharge Providers Provider Date of admission: 12/05/19 17:07 Discharge Date: 12/09/19 Discharge provider: Kelvin Saleh DO Summary Hospital Course Discharge Diagnosis: Please see hospital course by problem list noted below: Hospital Course: Anand Fulton is a 39 y.o. male with a history of chronic pain and opiate dependency, alcoholism, b12 deficiency and bilateral pulmonary embolisms diagnosed and treated since August of this year who was admitted with nausea/vomiting and hyponatremia. 1. Nausea and vomiting, acute, present on admission, resolved -unclear if this was the etiology of his hyponatremia Or if hyponatremia caused his nausea and vomiting. He improved with IV fluids and his symptoms are improved. If not hyponatremia related other possible etiologies are pancreatitis given his history of alcohol use and mildly elevated lipase of 303 on admission that resolved by the time he presented, or a viral gastroenteritis. 2. Acute severe hyponatremia, prsesent on admission, resolved -continued on NS infusion until sodium normalized. Patient was adequately tolerating a diet upon discharge. 3. Hypokalemia, active - likely due to nausea,vomiting and dehydration. Repleted orally multiple times during his admission. 4. History of pulmonary emboli on anticoagulant therapy -continued home dose of apixaban 5 mg po bid 5. alcohol withdrawal with delirium tremens, acute, present on admission -patient denied prior withdrawal symptoms. Endorsed hallucinations and mild tremulousness and anxiety, but no disorientation. Patient was given a day of librium and then no longer endorse these symptoms. 6.Chronic pain, present on admission -Continue home dose of ativan 0.5 mg and oxycodone 5 mg po both tid -IV dilaudid 2 mg q 3 hours was provided as needed for pain 7. Alcoholic hepatitis, improved, present on admission. -Peaked AST of 607 and ALT 352 which improved the day prior to discharge. Likely elevated on day of discharge due to Librium dosing which was discontinued. Patient was eating and tolerating a diet and should have repeat follow-up testing with his primary care provider. Ultrasound revealed no fatty infiltration or evidence of cirrhosis. Time Spent with Patient Time spent: Greater than 30 minutes Exam Vital Signs (past 8 hours): - 12/09/19 05:48 12/09/19 05:55 12/09/19 07:30 Temperature 97.7 F 98.6 F Pulse Rate 61 61 61 Respiratory Rate 16 19 Blood Pressure 131/92 H 131/92 H 109/78 Pulse Oximetry 100 100 12/09/19 08:33 Temperature Pulse Rate 73 Respiratory Rate 18 Blood Pressure Pulse Oximetry 99 Fraction of Inspired Oxygen 21 Oxygen Delivery Method Room Air Oxygen Flow Rate 0 Narrative Exam Narrative: GENERAL APPEARANCE: Well developed, well nourished, in no acute distress. SKIN: Inspection of the skin reveals no rashes, ulcerations or petechiae. HEENT: Normocephalic atraumatic, extraocular muscles are intact, oropharynx is clear and mucous membranes are moist, neck is supple without adenopathy NECK: Supple and symmetric. There was no thyroid enlargement, and no tenderness, or masses were felt. CHEST: Normal AP diameter and normal contour without any kyphoscoliosis. LUNGS: Auscultation of the lungs revealed no wheezes, rhonchi, or rales. CARDIOVASCULAR: There was a regular rate and rhythm without any murmurs, gallops, rubs. Peripheral pulses were 2+ and symmetric. ABDOMEN: Soft and nontender with normal bowel sounds. No ascites was noted. MUSCULOSKELETAL: There was no tenderness or effusions noted. Muscle strength and tone were normal. EXTREMITIES: No cyanosis, clubbing or edema. NEUROLOGIC: Alert and oriented x 3. Normal affect. Gait was normal. Strength is +5/5 in the Upper Extremities and Lower Extremities Bilaterally. Sensation to touch was normal. Objective Labs Result Diagrams: 12/09/19 06:36 12/09/19 06:36 Labs: Laboratory Results - last 24 hr 12/08/19 12/09/19 12/09/19 11:13 06:36 06:36 WBC 4.6 RBC 3.99 L Hgb 13.4 L Hct 38.9 L MCV 97.3 MCH 33.5 MCHC 34.4 RDW 14.1 Plt Count 180 Neut % (Auto) 27.1 L Lymph % (Auto) 52.1 H [place] % (Auto) 8.9 Eos % (Auto) 11.4 H Baso % (Auto) 0.5 Neut # (Auto) 1300 L Lymph # (Auto) 2400 [place] # (Auto) 400 Eos # (Auto) 500 H Baso # (Auto) 0 PT INR APTT Sodium 133 L Potassium 3.8 3.9 Chloride 102 Carbon Dioxide 31 BUN 5 L Creatinine 0.76 Estimated GFR > 60.0 BUN/Creatinine Ratio 6.6 Glucose 97 Calcium 8.8 Magnesium 1.8 Total Bilirubin 0.6 Conjugated Bilirubin 0.0 Unconjugated Bilirubin 0.3 AST 638 H ALT 498 H Alkaline Phosphatase 80 Total Protein 5.8 L Albumin 3.3 L Globulin 2.5 Albumin/Globulin Ratio 1.3 12/09/19 06:36 WBC RBC Hgb Hct MCV MCH MCHC RDW Plt Count Neut % (Auto) Lymph % (Auto) [place] % (Auto) Eos % (Auto) Baso % (Auto) Neut # (Auto) Lymph # (Auto) [place] # (Auto) Eos # (Auto) Baso # (Auto) PT 11.0 INR 1.0 APTT 30 Sodium Potassium Chloride Carbon Dioxide BUN Creatinine Estimated GFR BUN/Creatinine Ratio Glucose Calcium Magnesium Total Bilirubin Conjugated Bilirubin Unconjugated Bilirubin AST ALT Alkaline Phosphatase Total Protein Albumin Globulin Albumin/Globulin Ratio Discharge Plan Discharge Plan Patient Disposition: Home Discharge comment: you were admitted to the hospital with nausea and vomiting on a low sodium level. You may have had an episode of pancreatitis that improved before you arrive because you are not eating or drinking. Your sodium level improved with fluids. You were treated as well for symptoms of alcohol withdrawal. I highly recommend that you stop drinking as your liver enzymes are quite elevated and follow-up with your primary care provider as soon as possible for a recheck of these medicines. No medication changes are necessary at this time. Discharge orders & Medications Prescriptions: Continued Flovent HFA 110 mcg/actuation HFA aerosol inhaler 3 inhalation INHALATION Q12H Qty: 12 RF: 0 omeprazole 20 mg capsule,delayed release(DR/EC) 20 mg PO DAILY RF: 0 lisinopril-hydrochlorothiazide 20-25 mg tablet 1 tab PO DAILY RF: 0 ondansetron 4 mg tablet,disintegrating 4 mg PO Q6-8H PRN (Reason: Nausea And Vomiting) RF: 0 albuterol sulfate 90 mcg/actuation HFA aerosol inhaler 2 puff INHALATION Q4-6H PRN (Reason: shortness of breath or wheezing) Qty: 8 RF: 2 cyanocobalamin (vitamin B-12) 1,000 mcg tablet extended release 1,000 mcg PO DAILY RF: 0 apixaban 5 mg (74 tabs) tablets,dose pack See Rx Instructions .ROUTE .COMPLEX Qty: 74 RF: 0 lorazepam 0.5 mg tablet 0.5 mg PO TID RF: 0 oxycodone 5 mg tablet 5 mg PO TID RF: 0 Visit Report/Discharge Packet Instructions: Constipation, DI for Hyponatremia, How to Prevent Falls, DI for Drug or Alcohol Withdrawal Visit Report Forms: Patient Portal/API, Stroke Signs & Symptoms Discharges patient from system. Discharge Date/Time: 12/09/19 12:40 Quality VTE Deep Vein Thrombosis/Pulmonary Embolism Present on Admission: Yes
[2019-12-09] MEDS: CYANOCOBALAMIN (VITAMIN B-12) 500 MCG TABLET 1000 MCG PO (09:08)
[2019-12-09] MEDS: THIAMINE 100 MG TABLET PO (09:08)
[2019-12-09] MEDS: PANTOPRAZOLE 20 MG TABLET PO (09:08)
[2019-12-09] MEDS: FOLIC ACID 1 MG TABLET PO (09:08)
[2019-12-09] MEDS: LORazepam 0.5 MG TABLET PO (09:08)
[2019-12-09] MEDS: DOCUSATE 100 MG CAPSULE PO (09:08)
[2019-12-09] MEDS: MULTIVITAMIN 1 TABLET 1 TAB PO (09:08)
[2019-12-09] MEDS: lisinopriL 20 MG TABLET PO (09:08)
[2019-12-09] MEDS: APIXABAN 5 MG TABLET PO (09:09)
[2019-12-09] MEDS: OXYCODONE IR 5 MG TABLET PO (09:09)
[2019-12-09] MEDS: SODIUM CHLORIDE 0.9% FLUSH 10 ML IV (10:19)
--- NOTE | 2019-12-09 12:37 | PC.NURSE ---
Day shift: Paperwork signed and all questions answered. No new MD scripts. Pt has all personal belongings. Taken to car in . Car driven by Pt's S.O.
--- NOTE | 2019-12-09 14:51 | CM.SWNOTE ---
MOBILE TESTER Note Patient discharging home today. Patient discussed in multidisciplinary rounds; Dr Saleh has discussed cessation from ETOH- patient not interested in quitting at this time, this will not benefit from visit by this MOBILE TESTER P: DC home via pov, close outpt f/u recommended BRITTANY Glover
== END 2019-12-09 12:40 | disposition home or self-care (01) | DRG 425 ==
LOC: ED 17:02 → AC 17:08
PROVIDERS: Internal Medicine; Nurse Practitioner Family; Admitting Provider Internal Medicine; Emergency Provider Emergency Medicine; Referring Provider Emergency Medicine; Visit Provider Internal Medicine
DX: E87.1 Hypo-osmolality and hyponatremia (principal); F10.231 Alcohol dependence with withdrawal delirium; K70.10 Alcoholic hepatitis without ascites; Y90.3 Blood alcohol level of 60-79 mg/100 ml; E87.6 Hypokalemia; R11.2 Nausea with vomiting, unspecified; G89.29 Other chronic pain; I10 Essential (primary) hypertension; Z79.01 Long term (current) use of anticoagulants; Z79.891 Long term (current) use of opiate analgesic; Z86.711 Personal history of pulmonary embolism; Z11.59 Encounter for screening for other viral diseases
CPT/HCPCS: 36415; 36592; 74022; 76700; 80048; 80053; 80076; 80305; 80320; 81001; 82140; 82607; 83690; 83735; 84132; 84443; 85025; 85610; 85730; 87635; 94640; 94760; 96361; 96374; 96375; 99284; A9270; C9113; J1170; J2060; J2405; J3475